=== PATIENT | male | born 1955 | race Caucasian/White ===

== ENCOUNTER 2016-10-24 18:06 | Inpatient (IN) | payer OTHER ==
[~2016-10-24] VITALS: Ht 170.2 cm; Wt 93.9 kg
--- NOTE | 2016-10-24 18:09 | ED MVC/FALL/TRAUMA COMPLAINT ---
History of Present Illness General Chief Complaint: Fall Stated Complaint: L HIP PAIN S/P FALL Source: patient, old records Exam Limitations: no limitations Vital Signs & Intake/Output Vital Signs & Intake/Output Vital Signs Date Time Temp Pulse Resp B/P B/P Pulse O2 O2 Flow FiO2 Mean Ox Delivery Rate 10/24 2328 82 152/78 10/24 2315 98.5 85 14 158/72 94 Room Air 10/24 2244 98.4 87 20 174/78 96 Room Air 10/24 2221 Room Air 10/24 1946 100.4 88 18 167/77 96 Room Air 10/24 1849 4.0 10/24 1838 97.8 99 20 193/93 100 ED Intake and Output 10/25 0000 10/24 1200 Intake Total 1000 Output Total Balance 1000 Intake, IV 1000 Patient 207 lb Weight Weight Reported by Patient Measurement Method Allergies Coded Allergies: clopidogrel (From PLAVIX) (Intermediate, HIVES 10/24/16) indomethacin (From INDOCIN) (Intermediate, HIVES 10/24/16) azilsartan (From EDARBI) (NEAR KIDNEY FAILURE 10/24/16) Triage Nurses Notes Reviewed? yes Onset: Abrupt Duration: hour(s): (8), constant Timing: recent history Severity: severe Severity Numbers: 10 Injuries/Fall Location: lower extremity Method of Injury: fall Loss of Consciousness: no loss of consciousness Modifying Factors: Worsens With: movement. Associated Symptoms: DENIES HPI: 60-year-old male with history of coronary artery disease hypertension high cholesterol with 7 stents presents to the ER brought in by ambulance after he had a mechanical fall after he tripped over a piece of plywood landing on his left hip. He now presents complaining of moderate to severe 10 out of 10 left hip pain nonradiating. He denies hitting his head is no loss of consciousness no neck or back pain no chest pain shortness of breath abdominal pain arm or other leg injury. He states the fall occurred at 9:30 this morning and has been on the floor waiting for his to come home. He is not taken anything for his symptoms. No prodromal dizziness related as prior to the fall. He is not on anticoagulation (TIANNA HUTTON,RAGHU) Reconcile Medications Amlodipine Besylate 10 MG TABLET 10 MG PO DAILY HTN (Reported) Chlorthalidone 25 MG TABLET 1 TAB PO DAILY HTN (Reported) Doxazosin Mesylate 4 MG TABLET 1 TAB PO DAILY htn (Reported) Furosemide (Lasix) 20 MG TABLET 1 TAB PO Q8 HTN (Reported) Isosorbide Mononitrate (Isosorbide Mononitrate ER) 60 MG TAB.ER.24H 60 MG PO DAILY ANGINA (Reported) Labetalol HCl 200 MG TABLET 200 MG PO BID HEART (Reported) (EV HAMPTON,SIVAKUMAR) Past History Medical History Any Pertinent Medical History? see below for history Cardiovascular: CAD, myocardial infarction Respiratory: SLEEP APNEA Endocrine: diabetes Surgical History Surgical History: non-contributory Psychosocial History What is your primary language German Family History Hx Contributory? No (RAGHU FLORES) Review of Systems Review of Systems Constitutional: Reports: see HPI. All Other Systems: Reviewed and Negative Comments Review of systems: See HPI, All other systems negative. Constitutional, no chills no fever, no malaise HEENT: No visual changes no sore throat no congestion, no ear pain Cardiovascular: No chest pain , no palpitation , Skin: no rashes, no change in skin Respiratory: No dyspnea no cough no sputum GI: No nausea no vomiting, no diarrhea, : No dysuria Muscle skeletal: joint pain, no joint swelling, no back pain, no neck pain, Neurologic: No numbness no confusion, no headache Psych: No stress no depression,. Heme/endocrine: No bruising no bleeding Immunology: No lymphadenopathy (RAGHU FLORES) Physical Exam Physical Exam General Appearance: well developed/nourished, alert, awake Comments: Well-developed well-nourished person in no acute distress HEENT: Normal EENT exam; PERRL, EOMI, no nystagmus. HEAD is atraumatic. moist mucous membranes. Neck: Supple, no lymphadenopathy, normal range of motion without pain or tenderness Back: Nontender, no CVA tenderness. Full range of motion Cardiovascular: Regular rate and rhythms no murmurs rubs or gallops, normal JVP Respiratory: Chest nontender.There were no bony deformities, no asymmetry. No respiratory distress. Patient speaking in full complete sentences. Breath sounds clear to auscultation bilaterally: NO W/R/R Abdomen: Soft, nontender nondistended, no appreciable organomegaly. Normal bowel sounds. No rebound/guarding, No appreciable enlargement of the abdominal aorta, No ascites. Upper Extremity: No edema, full range of motion of extremities, normal and equal pulses bilaterally, 5 out of 5 strength noted to bilateral upper extremities Hip/Pelvis: Left leg is shortened and externally rotated significant tenderness to palpation with attempted movement, right hip is atraumatic Knee: Atraumatic/stable. No joint swelling, no effusion. No laxity. Negative alem/anterior drawer test. No pain with ROM Leg: L LEG LROM SECONDARY TO PAINRIGHT LEG Atraumatic. Nontender. No edema, 5 out of 5 strength in the lower extremity, normal dorsiflexion of great toe bilaterally, gross sensation is intact, Ankle/Foot: Atraumatic/stable. Skin intact. FROM. No swelling, no effusion. No laxity on exam Pulses: Normal/equal DP/PT pulses bilaterally. Brisk cap refill Neuro: Alert oriented x3, motor sensory normal, There were no obvious focal neurologic abnormalities. Skin: No appreciable rash on exposed skin, skin is warm and dry. Psych: Mood and affect is normal, memory and judgment is normal. Core Measures ACS in differential dx? No Severe Sepsis Present: No Septic Shock Present: No (TIANNA HUTTON,RAGHU) Progress Differential Diagnosis: abd injury, C/T/L spine injury, ext injury, ICH, pelvis injury, pnemothorax, spinal cord injury Plan of Care: Orders Procedure Date/time Status Nothing by Mouth 10/25 B Active CBC WITHOUT DIFFERENTIAL 10/25 0600 Active BASIC ELECTROLYTES PLUS BUN&CR 10/25 0600 Active Vital Signs 10/24 2216 Complete Teach/Educate 10/24 2216 Active Pain Treatment and Response 10/24 2216 Active Nutritional Intake, Monitor 10/24 2216 Active Isolation 10/24 2216 Active Intake & Output 10/24 2216 Complete Patient Care Conference 10/24 2216 Active Activity/Ambulation 10/24 2216 Active Pathway - chart 10/25 2139 Active House Staff 10/25 2139 Active Patient Data 10/25 2139 Active Code Status 10/25 2139 Active Intake & Output 10/24 1957 Complete Patient Data 10/25 1955 Active Admit to inpatient 10/24 194 Active Vital Signs 10/24 194 Active Code Status 10/24 194 Complete Add-on Test (ER Only) 10/24 1831 Active EKG 10/24 182 Active Saline Lock 10/24 182 Active CREATINE PHOSPHOKINASE 10/24 1826 Complete B-TYPE NATRIURETIC PEP (BNP) 10/24 1826 Complete PARTIAL THROMBOPLASTIN TIME 10/24 1808 Complete PROTHROMBIN TIME 10/24 1808 Complete COMPREHENSIVE METABOLIC PANEL 10/24 1808 Complete CBC WITHOUT DIFFERENTIAL 10/24 1808 Complete TYPE & SCREEN (NOT X-MATCH) 10/24 1808 Complete Lab Add-on Test 10/24 UNK Active Weight 10/24 UNK Active VTE Mechanical Prophylaxis 10/24 UNK Active Telemetry/Lens Mold Setter 10/24 UNK Active Intake & Output 10/24 UNK Active FingerStick- Glucose 10/24 UNK Active PHYSICIAN CONSULT 10/24 UNK Active Current Medications Sig/Lynda Start time Last Medication Dose Stop Time Status Admin Amlodipine Besylate 10 MG DAILY 10/25 1000 AC (Norvasc) Doxazosin Mesylate 4 MG 1000 10/25 1000 AC (Cardura) Isosorbide 60 MG DAILY 10/25 1000 AC Mononitrate (Imdur) Insulin Aspart 0 TIDAC 10/25 0800 AC (NovoLOG) Acetaminophen 1,000 MG Q6 10/24 2359 AC 10/24 (Ofirmev) 2329 Furosemide 20 MG Q8 10/24 2200 AC 10/24 (Lasix) 2328 Heparin Sodium 5,000 UNIT Q8 10/24 2200 AC 10/24 (Porcine) 2329 Labetalol HCl 200 MG BID 10/24 2199 AC 10/24 (Trandate-Normodyne 2328 200MG Tab) Prazosin HCl 2 MG BID 10/24 2200 CAN (Minipress 2 Mg.) Acetaminophen 650 MG Q6P PRN 10/24 2145 AC (Tylenol) Morphine Sulfate 2 MG Q4P PRN 10/24 2145 AC 10/24 (Morphine) 2248 Sodium Chloride 1,000 ML ONCE ONE 10/24 2145 CAN (Normal Saline 0.9%) 10/25 0544 Chlorthalidone 25 MG DAILY 10/24 2133 AC (Hygroton) Laboratory Tests 10/24/161826: Anion Gap 16, Estimated GFR 36 L, BUN/Creatinine Ratio 20.0, Glucose 125 H, Calcium 9.2, Total Bilirubin 1.0, AST 25, ALT 36, Alkaline Phosphatase 72, Creatine Kinase 244 H, Zfk-T-Nhomzkykrxd Pept 285 H, Total Protein 7.0, Albumin 4.2, Globulin 2.8, Albumin/Globulin Ratio 1.5, PT 11.7, INR 1.12, APTT 30, CBC w Diff NO MAN DIFF REQ, RBC 3.83 L, MCV 85.3, MCH 29.8, RDW 12.8, MPV 7.5, Gran % 89.8 H, Lymphocytes % 4.1 L, Monocytes % 5.9, Eosinophils % 0, Basophils % 0.2, Absolute Granulocytes 10.4 H, Absolute Lymphocytes 0.5 L, Absolute Monocytes 0.7 H, Absolute Eosinophils 0, Absolute Basophils 0, PUBS MCHC 35.0 X-rays ordered patient medicated with morphine to Tylenol IV Zofran 4 IV x-rays ordered CASE d/w dr davila 1939 on repeat evaluation pain is improved he is declining anything else when offered and discussed with him his x-ray results. case d/w dr berman will admit d/w ortho caes d/w dr andre will have surgical pa eval/consult PATIENT: LINDSEY PENNINGTON Laura PRESENT AGE: 60 PATIENT ACCOUNT NO: [id number] : 54 LOCATION: [facility] ORDERING PHYSICIAN: RAGHU HUTTON SERVICE DATE: 10/24/16 EXAM TYPE: RAD - XRY-HIP 2-3 VIEWS, LEFT EXAMINATION: XR HIP, LEFT CLINICAL INFORMATION: Fall with pain. COMPARISON: None TECHNIQUE: Two views of the left hip. Frontal view of the pelvis. FINDINGS: There is a left femoral neck fracture with varus angulation at the fracture site. The left femoral head articulates appropriately with its acetabulum. Mild degenerative changes with joint space narrowing and small osteophytes. The right femoral head is well-seated within its acetabulum. The pelvic rim is intact. The sacroiliac joints and pubic symphysis are intact. Phleboliths overlie the pelvis. IMPRESSION: Left femoral neck fracture with varus angulation at the fracture site. DICTATED BY: BASHIR PASCUAL MD DATE/TIME DICTATED:10/24/161951 TRIAGE CLINICIAN:MELVIN DATE/TIME TRANSCRIBED:10/24/161951 CONFIDENTIAL, DO NOT COPY WITHOUT APPROPRIATE AUTHORIZATION. <Electronically signed in Other Vendor System> SIGNED BY: BASHIR PASCUAL MD 10/24 PATIENT: LINDSEY PENNINGTON PRESENT AGE: 60 PATIENT ACCOUNT NO: [id number] : 54 LOCATION: [facility] ORDERING PHYSICIAN: RAGHU HUTTON SERVICE DATE: 10/24/16 EXAM TYPE: RAD - XRY-CHEST XRAY, ONE VIEW ONLY EXAMINATION:\H\ \N\XR CHEST CLINICAL INFORMATION: Fall COMPARISON: 01/20/2008 TECHNIQUE: Frontal view of the chest was obtained. FINDINGS: The lungs are well expanded. There is no focal consolidation, edema, or effusion. No pneumothorax. The cardiomediastinal silhouette is within normal limits. No acute osseous abnormality. IMPRESSION: No acute pulmonary findings. No displaced fractures are seen. DICTATED BY: BASHIR PASCUAL MD DATE/TIME DICTATED:10/24/161952 TRIAGE CLINICIAN:MELVIN DATE/TIME TRANSCRIBED:10/24/161952 CONFIDENTIAL, DO NOT COPY WITHOUT APPROPRIATE AUTHORIZATION. <Electronically signed in Other Vendor System> SIGNED BY: ANKUR HAMPTON,BASHIR 10/24 (RAGHU FLORES) Diagnostic Imaging: Viewed by Me: Radiology Read. Discussed w/RAD: Radiology Read. Initial ED EKG: nsr at 90, no acute st seg changes, normal axis Prior EKG: unchanged (06/2015) (RAGHU FLORES) Departure Departure Time of Disposition: 1940 Disposition: STILL A PATIENT Condition: Stable Clinical Impression Primary Impression: Femoral neck fracture Referrals: LIBRADO CERDA MD Departure Forms: Customer Survey General Discharge Information Admission Note Spoke With: REBEL BERMAN MD Documentation of Exam: Documentation of any treatments & extenuating circumstances including Concerns Regarding Discharge (functional status, medication knowledge or non-compliance, living conditions, etc.) that warrant an admission rather than observation: pt will require ORIF, ortho, cardiology and medicine clearance, iv pain control, premature discharge would be medically harmful (RAGHU FLORES) PA/MEDICAL BILLING AND CODING SPECIALIST Co-Sign Statement Statement: ED Attending supervision documentation- [x] I saw and evaluated the patient. I have also reviewed all the pertinent lab results and diagnostic results. I agree with the findings and the plan of care as documented in the PA's/MEDICAL BILLING AND CODING SPECIALIST's documentation. [x] I have reviewed the ED Record and agree with the PA's/MEDICAL BILLING AND CODING SPECIALIST's documentation. [] Additions or exceptions (if any) to the PAs/MEDICAL BILLING AND CODING SPECIALIST's note and plan are summarized below: [] (EV HAMPTON,SIVAKUMAR)
--- NOTE | 2016-10-24 18:15 | NUR ---
PT CHRISTIN TO [facility] RM 5 S/P FALL C/C L HIP PAIN. HAD BOARD BLOCKING DOOR TO PREVENT DOG FROM GETTING OUT, WHEN HE WENT TO STEP OVER THE BOARD HE TRIPPED AND FELL, LANDING ON L HIP. WAS UNABLE TO GET SELF UP. CRAWLED TO TAKE CARE OF DOG. FELL THIS AM. STATES PHONE WAS TOO FAR AWAY. DENIES HEAD STRIKE OR OTHER INJURIES. ANNI WYNN INTO EVALUATE PATIENT ON ARRIVAL TO ER.
--- NOTE | 2016-10-24 18:38 | NUR ---
IV ACCESS ESTABLISHED, #20 RFA (DIFFICULT STICK) MEDICATED WITH MORPHINE AND ZOFRAN PER ORDERS.
[2016-10-24 18:40] LABS: ABSOLUTE BASOPHIL COUNT 0 /CUMM (0.0-0.2); ABSOLUTE EOSINOPHIL COUNT 0 /CUMM (0.0-0.7); ABSOLUTE GRANULOCYTE CT 10.4 /CUMM (1.4-6.5); ABSOLUTE LYMPH COUNT 0.5 /CUMM (1.2-3.4); ABSOLUTE MONOCYTE COUNT 0.7 /CUMM (0.10-0.60); BASOPHIL % 0.2 % (0.0-2.0); EOSINOPHIL % 0 % (0-5); HEMATOCRIT 32.7 % (42-52); MEAN CORPUSCULAR HGB 29.8 PG (27.0-31.0); MEAN CORPUSCULAR VOLUME 85.3 FL (80.0-94.0); MEAN PLATELET VOLUME 7.5 FL (7.4-10.4); PLATELET COUNT 235 /CUMM (130-400); RBC DISTRIBUTION WIDTH 12.8 % (11.5-14.5); RED BLOOD CELL CT 3.83 /CUMM (4.70-6.10); WHITE BLOOD CELL COUNT 11.6 /CUMM (4.8-10.8)
[2016-10-24 18:41] LABS: GRANULOCYTE % 89.8 % (42.2-75.2)
--- NOTE | 2016-10-24 18:50 | NUR ---
MEDICATED WITH IV OFIRMEV PER ORDERS.
[2016-10-24 18:54] LABS: PT 11.7 SEC (9.4-12.5); PTT 30 SEC (25-37)
--- NOTE | 2016-10-24 18:56 | NUR ---
Informed waiting has been performed.
--- NOTE | 2016-10-24 19:12 | NUR ---
PT MEDICATED WITH NS INFUSING PER EMAR
--- NOTE | 2016-10-24 19:56 | RADIOLOGY REPORT ---
EXAMINATION: XR HIP, LEFT CLINICAL INFORMATION: Fall with pain. COMPARISON: None TECHNIQUE: Two views of the left hip. Frontal view of the pelvis. FINDINGS: There is a left femoral neck fracture with varus angulation at the fracture site. The left femoral head articulates appropriately with its acetabulum. Mild degenerative changes with joint space narrowing and small osteophytes. The right femoral head is well-seated within its acetabulum. The pelvic rim is intact. The sacroiliac joints and pubic symphysis are intact. Phleboliths overlie the pelvis. IMPRESSION: Left femoral neck fracture with varus angulation at the fracture site.
--- NOTE | 2016-10-24 19:56 | RADIOLOGY REPORT ---
EXAMINATION:\H\ \N\XR CHEST CLINICAL INFORMATION: Fall COMPARISON: 01/20/2008 TECHNIQUE: Frontal view of the chest was obtained. FINDINGS: The lungs are well expanded. There is no focal consolidation, edema, or effusion. No pneumothorax. The cardiomediastinal silhouette is within normal limits. No acute osseous abnormality. IMPRESSION: No acute pulmonary findings. No displaced fractures are seen.
[2016-10-24] MEDS ORDERED: LABETALOL HCL200 M1 PO (20:03)
[2016-10-24] MEDS ORDERED: ISOSORBIDE MONO60 M1 PO (20:03)
[2016-10-24] MEDS ORDERED: PRAZOSIN HCL2 M1 PO (20:03)
[2016-10-24] MEDS ORDERED: AMLODIPINE BESY10 M1 PO (20:04)
[2016-10-24] MEDS ORDERED: HYDRALAZINE HCL50 M1 PO (20:05)
--- NOTE | 2016-10-24 20:12 | History & Physical ---
SOURAV HAMPTON,[facility] 10/24/16 2012: General Information and HPI MD Statement: I have seen and personally examined LINDSEY PUTNAM and documented this H&P. The patient is a 60 year old M who presented with a patient stated chief complaint of mechanical fall. Source of Information: patient, old records Exam Limitations: no limitations History of Present Illness: Mr. Putnam is a 60 y/o M with PMHx of HTN, T2DM and CAD s/p 7 stent placement who presents after a mechanical fall. This morning around 9:30 AM, patient tripped over a piece of plywood and landed on his left hip. Following the fall, he experienced severe pain in his left hip. There was no head trauma or loss of consciousness. He was able to crawl on his knees for 15 feet but had to stop because it was too painful. He remained in place without having anything to eat or drink until his came home later in the evening. Patient has an extensive cardiac history with the placement of 7 stents almost every year from 2005 to 2010. Patient was seeing alterations supervisor Dr. Abdirizak Hendrix until he and now sees Dr. Sincere Carrington. Since May 2016, his blood pressure has been difficult to control and there have been a lot of changes to his antihypertensive medications by his alterations supervisor, senior publications specialist and PCP. He recently had an ECHO and stress test in June 2016. Of note, he was hospitalized for five days at [facility] (09/07/16) for hypertensive urgency and hyperkalemia, subsequently discharged and then readmitted two days later. During these hospitalizations, patient developed vitreous hemorrhage in his left eye which he attributes to the heparin that he received for DVT prophylaxis. He was discharged on an adjusted antihypertensive regimen and has been following up with his senior publications specialist Dr. Oscar Huang at [facility] who has been making adjustments to his antihypertensive regimen including increasing his dose of labetalol, changing his diuretic and starting him on prazosin. His most recent visit was approximately one week prior to current presentation when his Lasix dose was increased to TID. Since then he has lost 8 lbs and feels that his leg swelling has improved. He has also been following up with metal box maker Dr. Luis F Hayes for the vitreous hemorrhage possibly related to his retinopathy and has received Avastin injections with plans for photocoagulation 1 week after the injection. Of note, patient's renal function has been fluctuating since May 2016. He has developed worsening renal function after starting azilsartan which has been subsequently discontinued. Currently his renal function is stable per patient and he reports that his most recent creatinine was 2.3. Patient reports that he was diagnosed with atherosclerotic disease affecting the arteries of his left leg. He states that he is fairly active and walks approximately one hour per day. At present patient denies chest pain, shortness of breath or palpitations. Allergies/Medications Allergies: Coded Allergies: clopidogrel (From PLAVIX) (Intermediate, HIVES 10/24/16) indomethacin (From INDOCIN) (Intermediate, HIVES 10/24/16) azilsartan (From EDARBI) (NEAR KIDNEY FAILURE 10/24/16) Home Med list Amlodipine Besylate 10 MG TABLET 10 MG PO DAILY HTN (Reported) Chlorthalidone 25 MG TABLET 1 TAB PO DAILY HTN (Reported) Doxazosin Mesylate 4 MG TABLET 1 TAB PO DAILY htn (Reported) Furosemide (Lasix) 20 MG TABLET 1 TAB PO Q8 HTN (Reported) Isosorbide Mononitrate (Isosorbide Mononitrate ER) 60 MG TAB.ER.24H 60 MG PO DAILY ANGINA (Reported) Labetalol HCl 200 MG TABLET 200 MG PO BID HEART (Reported) Metformin HCl 500 MG TABLET 1 TAB PO BID DIABETES (Reported) Past History Travel History Traveled to [place] past 21 day No Medical History Neurological: NONE EENT: left eye vitreous hemorrhage Cardiovascular: CAD, hypertension, myocardial infarction, PVD Respiratory: obstructive sleep apnea, USES CPAP Gastrointestinal: NONE Hepatic: NONE Renal: NONE Psychiatric: NONE Endocrine: diabetes Blood Disorders: NONE Cancer(s): NONE TASSEL SNIPPER/Reproductive: NONE Other Medical Hx: Lyme disease Surgical History Surgical History: cardiac stent placement x7 Past Family/Social History Psychosocial History Where do you live? Home Who Do You Live With? spouse Primary Language: Wallisian Smoking Status: Former Smoker (Quit 30 Years Ago) ETOH Use: occasional use Illicit Drug Use: denies illicit drug use Functional Ability ADLs Independent: dressing, eating, toileting, bathing. Ambulation: independent IADLs Independent: shopping, housework, finances, food prep, telephone, transportation , medication admin. Review of Systems Review of Systems Constitutional: Reports: no symptoms. EENTM: Reports: no symptoms. Cardiovascular: Reports: peripheral edema (improving). Denies: chest pain, palpitations. Respiratory: Denies: short of breath. GI: Reports: no symptoms. Genitourinary: Reports: no symptoms. Musculoskeletal: Reports: see HPI. Skin: Reports: no symptoms. Neurological/Psychological: Reports: no symptoms. Hematologic/Endocrine: Reports: no symptoms. Immunologic/Allergic: Reports: no symptoms. All Other Systems: Reviewed and Negative Exam & Diagnostic Data Last 24 Hrs of Vital Signs/I&O Vital Signs Date Time Temp Pulse Resp B/P B/P Pulse O2 O2 Flow FiO2 Mean Ox Delivery Rate 10/24 1945 100.4 88 18 167/77 96 Room Air 10/24 184 4.0 10/24 1837 97.8 99 20 193/93 100 Physical Exam General Appearance Alert, Oriented X3, No Acute Distress HEENT Atraumatic, Mucous Membr. moist/pink, Left Eye with Subconjunctival Hemorrhage Neck Supple Cardiovascular Regular Rate, Normal S1, Normal S2 Lungs Clear to Auscultation Abdomen Soft, No Tenderness, Positive Bowel Sounds Extremities No Clubbing, No Cyanosis, 2+ Edema on Left Lower Extremity Last 24 Hrs of Labs/Wing: Laboratory Tests 10/24/161826: Anion Gap 16, Estimated GFR 36 L, BUN/Creatinine Ratio 20.0, Glucose 125 H, Calcium 9.2, Total Bilirubin 1.0, AST 25, ALT 36, Alkaline Phosphatase 72, Creatine Kinase 244 H, Idu-J-Bqoagypqgmn Pept Pending, Total Protein 7.0, Albumin 4.2, Globulin 2.8, Albumin/Globulin Ratio 1.5, PT 11.7, INR 1.12, APTT 30, CBC w Diff NO MAN DIFF REQ, RBC 3.83 L, MCV 85.3, MCH 29.8, RDW 12.8, MPV 7.5, Gran % 89.8 H, Lymphocytes % 4.1 L, Monocytes % 5.9, Eosinophils % 0, Basophils % 0.2, Absolute Granulocytes 10.4 H, Absolute Lymphocytes 0.5 L, Absolute Monocytes 0.7 H, Absolute Eosinophils 0, Absolute Basophils 0, PUBS MCHC 35.0 Diagnostic Data EKG Results Normal sinus rhythm No ST-T wave changes CXR Results No acute pulmonary findings. No displaced fractures are seen. Other Results LEFT HIP XR: Left femoral neck fracture with varus angulation at the fracture site. Assessment/Plan Assessment: 60 y/o M with PMHx of HTN, T2DM and CAD s/p 7 stent placement who presents with a displaced left femoral neck fracture following a mechanical fall. #Left femoral neck fracture: Left hip XR with femoral neck fracture with varus angulation. Per orthopedic surgery patient will need ORIF. RCRI class IV (+1 for history of ischemic heart disease, +1 for pre-operative treatment with insulin and 1+ for preoperative creatinine >2) corresponding to 11% risk of major cardiac events. * Admit to telemetry for continuous cardiac monitoring. * Cardiology consulted for preoperative cardiac risk assessment as patient is at high risk for complications. * Plan for ORIF tomorrow pending cardiac clearance. #HTN/CAD: Extensive cardiac history including placement of 7 stents. Follows with alterations supervisor Dr. Carrington. * Continue home medications including amlodipine 10 mg PO daily, chlorthalidone 25 mg PO daily, doxazosin 4 mg PO daily, Lasix 20 mg PO TID, Imdur 60 mg PO daily and labetalol 200 mg PO BID. * Repeat ECHO if recommended by alterations supervisor. #Vitreous hemorrhage of left eye: Developed during last hospitalization at [facility] in August-September 2016. Sees metal box maker Dr. Hayes. Has received Avastin injections for laser photocoagulation. * Obtain medical records from patient's metal box maker regarding vitreous hemorrhage. #Non-insulin dependent T2DM: * Accu-checks and sliding scale Novolog TIDAC. #CKD stage 3: Cr 1.9 on admission. Per patient, most recent Cr was 2.3. * Avoid nephrotoxic medications. Diet: NPO Pain: Morphine 2 mg IV Q4H PRN for severe pain (scale 7-10) Tylenol 1 g IV Q6H PRN for moderate pain (scale 4-6) Tylenol 650 mg PO Q6H PRN for mild pain (scale 1-3) DVT PPx: ALPs CODE: FULL As Ranked By This Provider Problem List: 1. Left displaced femoral neck fracture 2. CAD (coronary artery disease) 3. History of coronary artery stent placement 4. HTN (hypertension) 5. Vitreous hemorrhage, left eye 6. CKD (chronic kidney disease) stage 3, GFR 30-59 ml/min Core Measures/Miscellaneous Acute Coronary Syndrome ACS Diagnosis: No Cerebrovascular Accident CVA/TIA Diagnosis: No Congestive Heart Failure CHF Diagnosis: No Venous Thromboembolism VTE Risk Factors: Acute medical illness, Age > 40, Immobility, paresis, Obesity, Trauma major or lower ext [facility] prophylaxis d/t: No contraindications No VTE Pharm Prophylaxis d/t: Surgical contraindication (Planned ORIF) VTE Diagnosis: No VTE Type: NONE VTE Confirmed by (Test): NONE Severe Sepsis Severe Sepsis Present: No Septic Shock Septic Shock Present: No Miscellaneous Documentation Attending Case Discussed With: REBEL KING MD Primary Care Physician: RITCHIE KABA MD Patient sees these Specialists Film Developer Sincere Carrington MD Community Outreach Specialist Oscar Huang MDenvironmental field team member Luis F Hayes MD Level of Patient Care: Telemetry DOMINIQUE HI 10/24/16 2340: Resident Review Statement Resident Statement: examined this patient, discussed with fashion intern, agreed with fashion intern, discussed with family, reviewed EMR data (avail), discussed with nursing , discussed with case mgmt, reviewed images, amended to note Other Findings: Mr. Putnam is a 60 y/o M with PMHx of HTN, DIANELYS on CPAP, T2DM and CAD s/p 7 stent placement who presents after a mechanical fall. Patient has a long and fascinating medical endivor. After of his alterations supervisor he started seeing Dr. Carrington. Patient told us how his blood pressure managment has spinned out of control and had him admitted to [facility] twice, first one in September 07 for HTN emergency which awas complicated by left eye vitrous hemorrhagea, and another spell at [facility], five days later, for another HTN crisis and by that time prazosin was added to his medaication. Patient mentined that his problems with HTN started when Dr. Carrington azilsartan that caused MARY for him on CKD and forced the alterations supervisor to chaged his regimen to labetalol-plus hydralzine. After the second spell at [facility] his BP remained controlled and he continued to follow with Dr. Oscar Huang the week prior to current presentation who made some changes to his medications including increasing his Lasix dose to TID. Since then he has lost 8 lbs and feels that his leg swelling has improved. He reports that his last creatinine was 2.3 Currently he denies chest pain, shortness of breath or palpitations. Patient reports that he was diagnosed with atherosclerotic disease affecting the arteries of his left leg. On June 2016, acording to patient, he was saw Dr. Carrington for complain of CP. ECHO and stres test was done and according to patient Dr. Carrington offered another cardiac catheterization which patient refused. Another twist to his PMH is a Hx of PVD, more severe (L>R) and ?? arteial claudiction amd progressive diminishing of his exercise tolerance. According to patient, since Jun 2016-May 2016. Patient reports that he spends most of his time at home/ inaactive and may visit local grocery shops. He lives with his /quit smoking 30 years ago/complaint with his medication and diet. ROS: left Femur Fx. VS: 100.4, 88,18, 167/77, 96 %Room Air. PH/EX: Morbidly obese man; AO X3, not in acute distress; head and neck: Mucous membranes are dry, no JVD; heart: S1-S2 no murmur, lungs decreased air movements ; abdomen obese and soft no guarding or rebound, extremities: Swelling of lower extremities (left>> right, 2+ and trace edema respectively). Neurology intact sensory and motor function. Peripheral pulses 2+ in bilateral upper and lower extremities. Assessment and plan 60-year-old gentleman with multiple comorbidities and complicated past medical history was admitted for open reduction internal fixation for which she needs pre-op risk assessments for noncardiac surgery. Plan #Left femoral neck fracture: Left hip XR with femoral neck fracture with varus angulation. RCRI with class III risk corresponding to a 6.6% risk of major cardiac events. However patient is not physically active and he has a questionable recent history of chest pain, which was not fully worked up by that time. * Cardiology consulted * Plan for ORIF tomorrow pending cardiac clearance. * No need to repeat ECHO as patient recently had one in June 2016. * Obtain records from his ophtholmologist regarding safety of post-op AC. * Inform the surgical team about his hx of vitous hemmorhage. #Non-insulin dependent T2DM: * Accu-checks and sliding scale Novolin Q6 * NPO #HTN/CAD: * Continue home medications including amlodipine 10 mg PO daily, chlorthalidone 25 mg PO daily, doxazosin 4 mg PO daily, Lasix 20 mg PO daily, Imdur 60 mg PO daily and labetalol 200 mg PO BID. Diet: NPO DVT PPx: HSQ and ALPs REBEL KING 10/25/16 0116: Attending MD Review Statement Attending Statement Attending MD Statement: examined this patient, discuss w/resident/PA/AUTOMOBILE TRAVEL CLUB COUNSELOR, agreed w/resident/PA/AUTOMOBILE TRAVEL CLUB COUNSELOR, discussed with family, reviewed EMR data (avail), reviewed images, amended to note Attending Assessment/Plan: CC: Fall PMH: HTN, DM, CAD S/P MD S/P 7 stents, CKD, retinopathy S/P ?vitreous hemorrhage , PAD Patient had mechanical fall at home, stumbled on a stone, brought forward and fell on left hip. He could not get up after the fall, so he crawled to push the door to get the dog inside house but he could not go any further to call his so he laid on the floor for a few hours to came in and they called EMS to bring him to ER. Patient does not complain anything else other than left hip pain. Does not recall any chest pain, palpitations, dizziness, loss of consciousness, head trauma at the time of fall. No obvious neurological weakness Patient has extensive cardiac history with 7 stents from 2005 - 2010, almost yearly, mostly after chest pain episodes. Patient's alterations supervisor last year so he started to follow-up with Sincere Carrington MD. Since May patient mentions that there had been several changes in his antihypertensive medications done by alterations supervisor, PCP, senior publications specialist on different occasions. His Blood pressure had been not under control, was admitted to [facility] for elevated blood pressure, again there was a change in his blood pressure medications. After discharge, he followed up with senior publications specialist at [place] who increased her dose of labetalol, changed diuretic, added prazosin. According to patient he received heparin for DVT prophylaxis in hospital followed by which he had bleeding in his left eye. He followed up with metal box maker outpatient for possible vitreous hemorrhage, possibly related to his retinopathy and received Avastin and they plan to do photocoagulation 1 week after Avastin injection. Meanwhile patient had markedly fluctuation in his renal function since May, currently stabilized GFR around 55, according to patient. With all these fluctuations patients for functionality markedly decreased, he used to be on treadmill for 1 mile before May, now he feels pain and swelling in his left lower extremity Which limits his activity. Possible history of heart failure patient is not aware. Chronic bilateral lower extremity swelling. No history of stroke. Currently denies any chest pain or shortness of breath at rest or on exertion. Vitals: Temperature 97.8, RR 99, respiration 20, blood pressure 193/93 at presentation, saturating well on room air On exam: A O 3, cooperative, no acute distress, neck supple, JVD normal, no lymphadenopathy, mucosa moist, pupils equal round reactive to light, visual acute to grossly normal, no focal neurological deficit, +2 pitting edema bilateral lower extremity left more than right, skin rashes left lower extremity , peripheral pulses palpable and equal CVS: S1-S2, RRR, parasternal systolic murmur, no carotid radiation. RS: Clear to auscultate bilaterally, no crackles. Abdomen: Soft, obese, NT, ND, bowel sounds present. Subconjunctival hemorrhage on left eye 5 o'clock position. Labs: WBC 11.6, hemoglobin 11.4, neutrophils 89%, bicarbonate 18, BUN 38, creatinine 1.9, anion gap 16, glucose 125, LFT unremarkable, CK 244, proBNP 285, INR 1.12 EKG: No acute ST-T wave changes CXR: No acute pulmonary findings. No displaced fractures are seen. X-ray left hip: Left femoral neck fracture with varus angulation at the fracture site. A and P Patient has sustained left femoral neck fracture after what appears to be mechanical fall. According to surgical note patient will require open reduction and internal fixation. Given his coronary artery disease, multiple stents, probable history of heart failure, chronic kidney disease (baseline creatinine 2.3), peripheral vascular disease patient is high risk according to risk stratification. Patient does not appear to be in acute heart failure currently, I could not appreciate JVD, basilar crackles are s3. Patient does have parasternal systolic murmur, and bilateral pedal edema. Patient needs further cardiology evaluation for cardiac clearance. According to patient he underwent 2 -D echo and stress test in the month of June. In addition patient has recent ? Vitreous/preretinal hemorrhage. Patient will require postop prophylactic anticoagulation for DVT. ?Risk of further deterioration is unclear + Mechanical fall + Left femoral neck fracture + Recent ? Vitreous/preretinal hemorrhage + History of CAD, ?HF, DM, HTN, CKD, PVD - Admit to telemetry, given his extensive cardiac history and high blood pressure, patient may require IV antihypertensive and closer monitoring - Saline lock IV - Nothing by mouth after midnight - Please consult patient's cardiology for clearance. - Please obtain records and opinion regarding DVT prophylaxis from patient's metal box maker with respect to his recent hemorrhage and Avastin injection and plan of laser photocoagulation - Continue sliding scale insulin - Continue all his home medications for hypertension - Repeat CBC, BMP in a.m. - 2-D echo as suggested by alterations supervisor - DVT prophylaxis Alps only for now - Adequate pain control
--- NOTE | 2016-10-24 20:18 | Cons- Orthopedic ---
General Information and HPI Consulting Request Date of Consult: 10/24/16 Requested By: emergency department/hospitalist service Reason for Consult: hip fracture Source of Information: patient, old records, EMS Exam Limitations: no limitations History of Present Illness: Mr. Putnam is a 60-year-old male with a past medical history of hypertension, coronary artery disease with stents who sustained a mechanical fall at home after tripping. He denies dizziness chest pain shortness of breath prior to fall. He was unable to ambulate after the fall and was on the floor for several hours because he could not get the phone. He is transferred to [facility] which time x-rays were taken demonstrating an femoral neck fracture. He has no other extremity complaints at this time. Allergies/Medications Allergies: Coded Allergies: clopidogrel (From PLAVIX) ([facility], [facility] 10/24/16) indomethacin (From INDOCIN) (Intermediate, [facility] 10/24/16) azilsartan (From EDARBI) ([facility] 10/24/16) Home Med List: Amlodipine Besylate 10 MG TABLET 10 MG PO DAILY HTN (Reported) Chlorthalidone 25 MG TABLET 1 TAB PO DAILY HTN (Reported) Doxazosin Mesylate 4 MG TABLET 1 TAB PO DAILY htn (Reported) Furosemide (Lasix) 20 MG TABLET 1 TAB PO Q8 HTN (Reported) Isosorbide Mononitrate (Isosorbide Mononitrate ER) 60 MG TAB.ER.24H 60 MG PO DAILY ANGINA (Reported) Labetalol HCl 200 MG TABLET 200 MG PO BID HEART (Reported) Past History Medical History Neurological: NONE EENT: NONE Cardiovascular: CAD, hypertension, myocardial infarction, CARDIAC STENTS Respiratory: obstructive sleep apnea, USES CPAP Gastrointestinal: NONE Hepatic: NONE Renal: NONE Musculoskeletal: LYME DISEASE Psychiatric: NONE Endocrine: diabetes Blood Disorders: NONE Cancer(s): NONE 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 Respiratory: normal breath sounds Cardiovascular: regular rate/rhythm Gastrointestinal: soft, non-tender Extremities: no edema, pain and left groin with passive rotation of left hip. Neurologic/Psych: awake, alert Last 24 Hours of Labs: Laboratory Tests 10/247 Chemistry Sodium (137 - 145 mmol/L) 142 Potassium (3.5 - 5.1 mmol/L) 4.3 Chloride (98 - 107 mmol/L) 108 H Carbon Dioxide (22 - 30 mmol/L) 18 L Anion Gap (5 - 16) 16 BUN (9 - 20 mg/dL) 38 H Creatinine (0.7 - 1.2 mg/dL) 1.9 H Estimated GFR (>60 ml/min) 36 L BUN/Creatinine Ratio (7 - 25 %) 20.0 Glucose (65 - 99 mg/dL) 125 H Calcium (8.4 - 10.2 mg/dL) 9.2 Total Bilirubin (0.2 - 1.3 mg/dL) 1.0 AST (17 - 59 U/L) 25 ALT (21 - 72 U/L) 36 Alkaline Phosphatase (< 127 U/L) 72 Creatine Kinase (55 - 170 U/L) 244 H Vjf-T-Xfzttwoeits Pept (<125 pg/mL) 285 H Total Protein (6.3 - 8.2 g/dL) 7.0 Albumin (3.5 - 5.0 g/dL) 4.2 Globulin (1.9 - 4.2 gm/dL) 2.8 Albumin/Globulin Ratio (1.1 - 2.2 %) 1.5 Coagulation PT (9.4 - 12.5 SEC) 11.7 INR (0.90 - 1.17) 1.12 APTT (25 - 37 SEC) 30 Hematology CBC w Diff NO MAN DIFF REQ WBC (4.8 - 10.8 /CUMM) 11.6 H RBC (4.70 - 6.10 /CUMM) 3.83 L Hgb (14.0 - 18.0 G/DL) 11.4 L Hct (42 - 52 %) 32.7 L MCV (80.0 - 94.0 FL) 85.3 MCH (27.0 - 31.0 PG) 29.8 RDW (11.5 - 14.5 %) 12.8 Plt Count (130 - 400 /CUMM) 235 MPV (7.4 - 10.4 FL) 7.5 Gran % (42.2 - 75.2 %) 89.8 H Lymphocytes % (20.5 - 51.1 %) 4.1 L Monocytes % (1.7 - 9.3 %) 5.9 Eosinophils % (0 - 5 %) 0 Basophils % (0.0 - 2.0 %) 0.2 Absolute Granulocytes (1.4 - 6.5 /CUMM) 10.4 H Absolute Lymphocytes (1.2 - 3.4 /CUMM) 0.5 L Absolute Monocytes (0.10 - 0.60 /CUMM) 0.7 H Absolute Eosinophils (0.0 - 0.7 /CUMM) 0 Absolute Basophils (0.0 - 0.2 /CUMM) 0 PUBS MCHC (33.0 - 37.0 G/DL) 35.0 Imaging Results: SERVICE DATE: 10/24/16 EXAM TYPE: RAD - XRY-HIP 2-3 VIEWS, LEFT EXAMINATION: XR HIP, LEFT CLINICAL INFORMATION: Fall with pain. COMPARISON: None TECHNIQUE: Two views of the left hip. Frontal view of the pelvis. FINDINGS: There is a left femoral neck fracture with varus angulation at the fracture site. The left femoral head articulates appropriately with its acetabulum. Mild degenerative changes with joint space narrowing and small osteophytes. The right femoral head is well-seated within its acetabulum. The pelvic rim is intact. The sacroiliac joints and pubic symphysis are intact. Phleboliths overlie the pelvis. IMPRESSION: Left femoral neck fracture with varus angulation at the fracture site. DICTATED BY: ANKUR HAMPTON,BASHIR DATE/TIME DICTATED:10/24/161951 MISSILE FAC[employer]ITIES REPAIRER:MELVIN DATE/TIME TRANSCRIBED:10/24/161951 Assessment/Plan Assessment/Plan Mr. Putnam is a 60-year-old male with an extensive cardiac history who presents after a mechanical fall at home resulting in a hip fracture. Given his past medical history the patient will be admitted to the medical service and will require medical and cardiac clearance for pending open reduction internal fixation hip fracture probably in the a.m. Dr. Orantes will be the orthopedic attending of record who has reviewed the patient's x-rays and agrees with open reduction internal fixation and will evaluate the patient in the a.m. Consult Acknowledgment - Thank you for your consult request.
--- NOTE | 2016-10-24 21:19 | NUR ---
REPORT GIVEN TO VENU ROSS
[2016-10-24] MEDS ORDERED: DOXAZOSIN MESYLA4 M1 PO (21:20)
--- NOTE | 2016-10-24 21:20 | NUR ---
[facility] CALLED FOR TRANSPORT
[2016-10-24] MEDS ORDERED: CHLORTHALIDONE25 M1 PO (21:31)
[2016-10-24] MEDS ORDERED: LASIX20 M1 PO (21:31)
[2016-10-24 22:44] VITALS: BP 174/78
--- NOTE | 2016-10-24 23:10 | NUR ---
RECEIVED PATIENT FROM ED S/P LEFT FEMEROL HEAD FRACTURE. PT IS ALERT AND ORIENTED ON RA, SKIN INTACT, BP ELEVATED, PULSE REGULAR. PT HAD INC EPISODE OF BLADDER AND BOWEL PRIOR TO ARRIVING TO [facility]. PT WAS AT HOME AND SUSTAINED MECHANICAL FALL AND WAS UNABLE TO GET UP AND WAS ON THE FLOOR FOR MANY HOURS. PAIN 8/10 MORPHINE GIVEN WITH GOOD EFFECT. UPON CHECKING ORDERS, PATIENT NOTED TO HAVE ORDER FOR TELEMETRY. PT TRANSFERRED TO TELE WITH TELE NURSE AND MST.
[2016-10-24 23:15] VITALS: BP 158/72
[2016-10-25] VITALS (7 sets, daily range): BP systolic 170–198; BP diastolic 70–88
--- NOTE | 2016-10-25 01:18 | Admission Certification ---
Admission Certification Certification Statement - As attending physician, I certify that at the time of - admission, based on clinical presentation, severity of - symptoms, need for further diagnostic testing and - therapeutic interventions, and risk of adverse outcomes - without in-hospital treatment, in my clinical assessment, - this patient requires an acute hospital stay for a minimum - of two nights or longer. I have also considered psychsocial - factors such as support system, advanced age, financial - issues, cognitive issues, and failed out-patient treatments, - past re-admission history, safety of patient, and lack of - compliance as applicable. Specific rationale supporting this admission is: Fall, left femoral neck fracture
--- NOTE | 2016-10-25 07:15 | PN- Housestaff ---
TASH PATTERSON 10/25/16 0714: Subjective Follow-up For: 1. Left femoral neck fracture with varus angulation 2. Hypertensive urgency with history of hypertension Complaints: no complaints Tele-Events Since Last Visit: NSR, first-degree AV block, WA interval 0.26. HR 73 through 84 BPM. Subjective: Interval history: This morning Mr. Putnam states that he feels comfortable with occasional pain in this left hip with movement. He complains of some mild nonradiating sharp chest discomfort localized on the left chest. He denies any headaches, dizziness, worsening vision, shortness of breath, palpitations, nausea, abdominal, fevers or chills. Review of Systems Constitutional: Reports: see HPI. EENTM: Reports: see HPI. Cardiovascular: Reports: see HPI. Respiratory: Reports: no symptoms. Gastrointestinal: Reports: no symptoms. Musculoskeletal: Reports: see HPI. Objective Last 24 Hrs of Vital Signs/I&O Vital Signs Date Time Temp Pulse Resp B/P B/P Pulse O2 O2 Flow FiO2 Mean Ox Delivery Rate 10/25 0925 100.5 10/25 0922 82 186/80 10/25 0915 186/80 10/25 0830 100.5 82 16 186/82 91 Room Air 10/25 0829 100.5 78 16 186/82 91 Room Air 10/24 2328 82 152/78 10/24 2315 98.5 85 14 158/72 94 Room Air 10/24 2244 98.4 87 20 174/78 96 Room Air 10/24 2221 Room Air 10/24 1946 100.4 88 18 167/77 96 Room Air 10/24 1849 4.0 10/24 1838 97.8 99 20 193/93 100 Intake & Output 10/25 1600 10/25 0800 10/25 0000 Intake Total 200 1000 Output Total 900 Balance -700 1000 Intake, IV 0 1000 Intake, Oral 200 Output, Urine 900 Patient 207 lb Weight Weight Reported by Patient Measurement Method Physical Exam General Appearance: Alert, Cooperative, No Acute Distress Skin: Superficial reddish bruising on the anterior aspect of the left white HEENT: EOMI, Mucous Membr. moist/pink Cardiovascular: Regular Rate, Normal S1, Normal S2 Lungs: Clear to Auscultation, Normal Air Movement Abdomen: Normal Bowel Sounds, Soft, No Tenderness Extremities: No Edema, 2+ pitting edema left lower extremity, 1+ pitting edema right lower extremity Vascular: Pulses Symmetrical Current Medications: Current Medications Sig/Lynda Start time Last Medication Dose Route Stop Time Status Admin Acetaminophen 650 MG Q6P PRN 10/25 0930 AC 10/25 PO 0925 Acetaminophen 1,000 MG Q6P PRN 10/25 0529 AC 10/25 IV 0530 Acetaminophen 1,000 MG Q6 10/24 2359 DC 10/24 IV 2329 Acetaminophen 650 MG Q6P PRN 10/24 2145 DC PO Acetaminophen 0 .STK-MED ONE 10/24 184 DC IV Acetaminophen 1,000 MG ONCE ONE 10/24 1830 DC 10/24 N/A 1 UNIT IV 10/25 1843 184 Amlodipine Besylate 10 MG DAILY 10/25 1000 AC 10/25 PO 0924 Chlorthalidone 25 MG DAILY 10/24 2133 AC 10/25 PO 0922 Docusate Sodium 100 MG BID PRN 10/25 0800 AC PO Doxazosin Mesylate 4 MG 1000 10/25 1000 AC PO Furosemide 20 MG Q8 10/24 2200 AC 10/25 PO 0642 Heparin Sodium 5,000 UNIT Q8 10/24 2200 DC 10/24 (Porcine) SC 2329 Insulin Aspart 0 TIDAC 10/25 0800 CAN SC Insulin Human Regular 0 Q6 10/25 0113 AC 10/25 SC 0145 Isosorbide 60 MG DAILY 10/25 1000 AC 10/25 Mononitrate PO 0922 Labetalol HCl 300 MG BID 10/25 2200 AC PO Labetalol HCl 100 MG ONE TIME ONE 10/25 0945 DC PO 10/25 0946 Labetalol HCl 200 MG BID 10/24 2200 DC 10/25 PO 0925 Morphine Sulfate 2 MG Q4P PRN 10/24 2145 AC 10/25 IV 0929 Morphine Sulfate 0 .STK-MED ONE 10/24 184 DC .ROUTE Morphine Sulfate 2 MG ONCE ONE 10/24 1830 DC 10/24 IV 10/24 183 183 Ondansetron HCl 0 .STK-MED ONE 10/24 184 DC .ROUTE Ondansetron HCl 4 MG ONCE ONE 10/24 1830 DC 10/24 IV 10/24 183 183 Prazosin HCl 2 MG BID 10/24 2200 CAN PO Senna/Docusate Sodium 1 TAB BID PRN 10/25 0800 AC PO Sodium Chloride 1,000 ML ONCE ONE 10/24 2145 CAN IV 10/25 0544 Sodium Chloride 1,000 ML BOLUS ONE 10/245 DC 10/24 IV 10/24 Last 24 Hrs of Lab/Wing Results Last 24 Hrs of Labs/Mics: Laboratory Tests 10/25/16 0705: Anion Gap 12, Estimated GFR 39 L, BUN/Creatinine Ratio 18.9, Creatine Kinase 244 H, CBC w Diff NO MAN DIFF REQ, RBC 3.54 L, MCV 85.7, MCH 29.8, RDW 12.7, MPV 7.9, Gran % 75.9 H, Lymphocytes % 10.7 L, Monocytes % 8.4, Eosinophils % 4.4, Basophils % 0.6, Absolute Granulocytes 6.7 H, Absolute Lymphocytes 0.9 L, Absolute Monocytes 0.7 H, Absolute Eosinophils 0.4, Absolute Basophils 0.1, PUBS MCHC 34.7 10/24/16 1827: Anion Gap 16, Estimated GFR 36 L, BUN/Creatinine Ratio 20.0, Glucose 125 H, Calcium 9.2, Total Bilirubin 1.0, AST 25, ALT 36, Alkaline Phosphatase 72, Creatine Kinase 244 H, Hkq-P-Qlqwwgkwyqr Pept 285 H, Total Protein 7.0, Albumin 4.2, Globulin 2.8, Albumin/Globulin Ratio 1.5, PT 11.7, INR 1.12, APTT 30, CBC w Diff NO MAN DIFF REQ, RBC 3.83 L, MCV 85.3, MCH 29.8, RDW 12.8, MPV 7.5, Gran % 89.8 H, Lymphocytes % 4.1 L, Monocytes % 5.9, Eosinophils % 0, Basophils % 0.2, Absolute Granulocytes 10.4 H, Absolute Lymphocytes 0.5 L, Absolute Monocytes 0.7 H, Absolute Eosinophils 0, Absolute Basophils 0, PUBS MCHC 35.0 Assessment/Plan Assessment: Mr. Putnam is a 60-year-old gentleman with a PMH of HTN, type II DM, PVD, CAD s/p stent placement X7 () previously followed by his rod piler Dr. Abdirizak Hendrix until he and now sees Dr. Sincere Carrington. Most recently resistant hypertension with medication adjustments since May 2016, a recent admission to [facility] on 09/07/2016 for hypertensive urgency, complicated with vitreous hemorrhage in the left eye that was attributed to heparin for DVT prophylaxis. Patient's director peoplesoft Dr. Oscar Huang at [facility] has been involved with his antihypertensive medication adjustment: Increased labetalol dose, started on prazosin, increased Lasix to TID. His renal function had worsened secondary to starting azilsartan which has since been discontinued. For the vitreous hemorrhage she has been followed by his pastry chef Dr. Luis F Hayes which was managed with Avastin injection with follow-up plans for photocoagulation. He presented to [facility] on 10/24/2016 after suffering a mechanical fall tripping over a piece of plywood landing on his left hip, denied any preceding headache, dizziness, blurred vision or associated LOC. Due to significant pain he was unable to ambulate independently for an extended period of time. VS on admission: BP 103/93, HR 99, RR 20, SPO2 100% on RA, T 97.8. MAXIMUM TEMPERATURE 100.4 PE on admission: AAO, in no acute distress. Most mucous membranes. RRR, normal S1/S2. Lungs CTA BL. Abdomen soft nontender with positive bowel sounds. Pain and left groin with passive rotation of left hip. 2+ pitting edema of LLE. Pertinent labs: WBC 11.6, H&H 11.4/32.7, glucose 235, sodium 142, potassium 4.3, chloride 103, bicarbonate 18, BUN/CR 30/1.9, Creatinine kinase: 244 EKG: NSR, HR 90. First-degree AV block. Consider anterior septal infarct. WA interval 240, QTC 451 CXR: No acute pulmonary findings. No displaced fractures are seen. HIp xray: left femoral neck fracture with varus angulation at the fracture site. The left femoral head articulates appropriately with its acetabulum. Mild degenerative changes with joint space narrowing and small osteophytes. The right femoral head is well-seated within its acetabulum. The pelvic rim is intact. The sacroiliac joints and pubic symphysis are intact. Phleboliths overlie the pelvis. Problem list: 1. Left femoral neck fracture with varus angulation 2. Hypertensive urgency with history of hypertension 3. CAD with history of stent placement 4. Elevated creatinine kinase 5. CKD 6. Diabetes 7. Vitreous hemorrhage Plan: 1. Left femoral neck fracture with varus angulation * Plan for risk stratification prior to surgical intervention * Pain management with morphine 2 mg * Bowel regimen with senna and Colace when necessary for titration of 1-2 BMs per 24 hours 2. Hypertensive urgency with history of hypertension * BP on admission 193/93. Likely secondary to pain from left hip * Continue with his home regimen with labetalol 200 mg BID, amlodipine 10 mg, chlorthalidone 25 mg, doxazosin 4 mg * The patient reports that he has not started taking some of his recently prescribed medications by his director peoplesoft. Will contact [facility] to obtain latest discharge medication list and we consult accordingly 3. CAD with history of stent placement * Currently on beta shannan and isosorbide mononitrate as needed * Azilsartan recently discontinued in the setting of worsening renal function 4. Elevated creatinine kinase * 244 on admission. Remains stable this morning. * Whille he is NPO, we'll maintain him on D5NS at 75 mL/hr 5. CKD * Will monitor daily renal function in the setting of recent immobility and mild elevation in CK * Adjust Lasix according to fluid balance and urine output 6. Diabetes * NPO Insulin sliding scale at this time * Consistent carbohydrate 3 diet after surgery 7. Vitreous hemorrhage * Records obtained indicate that he is vitreous hemorrhage may have been attributed to heparin. We'll contact the patient's pastry chef to obtain further recommendations with regards to DVT prophylaxis moving forward 8. Diet: Consistent carbohydrate 3 9. DVT prophylaxis: ALps 10. CODE STATUS: Full code Problem List: 1. Left displaced femoral neck fracture 2. Hypertensive urgency 3. Elevated troponin 4. CAD (coronary artery disease) 5. Elevated creatine kinase 6. CKD (chronic kidney disease) stage 3, GFR 30-59 ml/min 7. Diabetes Pain Ratin Pain Location: Left chest Pain Goal: Pain 4 or less Pain Plan: Pain pathway Tomorrow's Labs & Rationales: CBC: Leukocytosis DEP: Monitor renal function DVT/Prophylaxis: pharmacological DIANA JONAS MD 10/25/16 1314: Attending MD Review Statement Attending Statement Attending MD Statement: examined this patient, discuss w/resident/PA/INDUSTRIAL TECHNICIAN, agreed w/resident/PA/INDUSTRIAL TECHNICIAN, reviewed EMR data (avail), discussed with nursing, discussed with case mgmt, reviewed images, amended to note Attending Assessment/Plan: Patient seen and examined, was not very comfortable. He was combining of some pain in the left lower extremity. Vital Signs Date Time Temp Pulse Resp B/P B/P Pulse O2 O2 Flow FiO2 Mean Ox Delivery Rate 10/25 1146 72 160/70 10/25 1144 98.6 10/25 0925 100.5 10/25 0922 82 186/80 10/25 0915 186/80 10/25 0830 100.5 82 16 186/82 91 Room Air 10/25 0829 100.5 78 16 186/82 91 Room Air 10/24 2328 82 152/78 10/24 2315 98.5 85 14 158/72 94 Room Air 10/24 2244 98.4 87 20 174/78 96 Room Air 10/24 2221 Room Air 10/24 1946 100.4 88 18 167/77 96 Room Air 10/24 1849 4.0 10/24 1838 97.8 99 20 193/93 100 on exam; aox3, nad. cv; s1,s2, rrr resp; clear abd; soft, nt, bs+ ext: + edema lle which is outward rotated. Laboratory Tests 10/25 10/24 0705 1827 Chemistry Sodium (137 - 145 mmol/L) 139 142 Potassium (3.5 - 5.1 mmol/L) 4.1 4.3 Chloride (98 - 107 mmol/L) 107 108 H Carbon Dioxide (22 - 30 mmol/L) 19 L 18 L Anion Gap (5 - 16) 12 16 BUN (9 - 20 mg/dL) 34 H 38 H Creatinine (0.7 - 1.2 mg/dL) 1.8 H 1.9 H Estimated GFR (>60 ml/min) 39 L 36 L BUN/Creatinine Ratio (7 - 25 %) 18.9 20.0 Glucose (65 - 99 mg/dL) 125 H Calcium (8.4 - 10.2 mg/dL) 9.2 Total Bilirubin (0.2 - 1.3 mg/dL) 1.0 AST (17 - 59 U/L) 25 ALT (21 - 72 U/L) 36 Alkaline Phosphatase (< 127 U/L) 72 Creatine Kinase (55 - 170 U/L) 244 H 244 H Troponin I (<0.11 ng/ml) 0.20 *H Enk-H-Zuamodbvrca Pept (<125 pg/mL) 285 H Total Protein (6.3 - 8.2 g/dL) 7.0 Albumin (3.5 - 5.0 g/dL) 4.2 Globulin (1.9 - 4.2 gm/dL) 2.8 Albumin/Globulin Ratio (1.1 - 2.2 %) 1.5 Coagulation PT (9.4 - 12.5 SEC) 11.7 INR (0.90 - 1.17) 1.12 APTT (25 - 37 SEC) 30 Hematology CBC w Diff NO MAN DIFF REQ NO MAN DIFF REQ WBC (4.8 - 10.8 /CUMM) 8.9 11.6 H RBC (4.70 - 6.10 /CUMM) 3.54 L 3.83 L Hgb (14.0 - 18.0 G/DL) 10.5 L 11.4 L Hct (42 - 52 %) 30.3 L 32.7 L MCV (80.0 - 94.0 FL) 85.7 85.3 MCH (27.0 - 31.0 PG) 29.8 29.8 RDW (11.5 - 14.5 %) 12.7 12.8 Plt Count (130 - 400 /CUMM) 197 235 MPV (7.4 - 10.4 FL) 7.9 7.5 Gran % (42.2 - 75.2 %) 75.9 H 89.8 H Lymphocytes % (20.5 - 51.1 %) 10.7 L 4.1 L Monocytes % (1.7 - 9.3 %) 8.4 5.9 Eosinophils % (0 - 5 %) 4.4 0 Basophils % (0.0 - 2.0 %) 0.6 0.2 Absolute Granulocytes (1.4 - 6.5 /CUMM) 6.7 H 10.4 H Absolute Lymphocytes (1.2 - 3.4 /CUMM) 0.9 L 0.5 L Absolute Monocytes (0.10 - 0.60 /CUMM) 0.7 H 0.7 H Absolute Eosinophils (0.0 - 0.7 /CUMM) 0.4 0 Absolute Basophils (0.0 - 0.2 /CUMM) 0.1 0 PUBS MCHC (33.0 - 37.0 G/DL) 34.7 35.0 A/P; 60 M with pmh sig for HTN, type II DM, PVD, CAD s/p stent placement X7, labile hypertension with med adjustments being made by patient's rod piler and director peoplesoft, recent vitreous hemorrhage under the care of pastry chef received Avsatin injections, admitted with a mechanical fall and sustained a left femoral neck fracture with varus angulation at the fracture site. Patient has been seen by cardiology and no further testing recommended to proceed with surgery. He will be continued on labetalol and other antihypertensives. He needs a better pain control. Please contact his director peoplesoft get some records as well as his pastry chef to notify about future decannulation after the surgery and to see if it is okay with them are not. DVT px: Patient was on heparin subcutaneous but has been discontinued for now. Patient will need to be on antivibration postoperatively and this will need to be clarified with pastry chef
--- NOTE | 2016-10-25 08:04 | Discharge Summary ---
Visit Information Visit Dates Admission Date: 10/24/16 Discharge Date: 10/31/2016 Hospital Course Course Attending Physician: DIANA JONAS MD Primary Care Physician: RITCHIE KABA MD Consulting Request: 1 Consulting Specialty: Cardiology Consulting Physician: Dr. Méndez Reason for Consult: Preop clearance Consulting Request: 2 Consulting Specialty: Nephrology Consulting Physician: Dr. Castro Reason for Consult: Worsening renal function Hospital Course: Mr. Putnam is a 60-year-old gentleman who presented to [facility] after suffering a mechanical fall, fracturing his left femoral neck. He has an extensive PMH of HTN, type II DM, PVD, CAD s/p stent placement X7 ( ) previously followed by his intelligent systems engineer Dr. Abdirizak Hendrix until he and now sees Dr. Sincere Carrington. Most recently resistant hypertension with medication adjustments since May 2016, a recent admission to [facility] on 09/07/2016 for hypertensive urgency, complicated with vitreous hemorrhage in the left eye with ?? association to heparin for DVT prophylaxis. Patient's rubber tire curer Dr. Uri Huang at [facility] has been involved with his antihypertensive medication adjustment: Increased labetalol dose, started on prazosin, increased Lasix to TID. His renal function had worsened secondary to starting azilsartan which has since been discontinued. For the vitreous hemorrhage she has been followed by his drug inspector Dr. Renee Hayes who administered with Avastin injection with follow-up plans for photocoagulation. He presented to [facility] on 10/24/2016 after suffering a mechanical fall tripping over a piece of plywood landing on his left hip. He denied any preceding headache dizziness, blurred vision or associated loss of consciousness. Due to significant pain and is unable to ambulate independently for an extended period of time. VS on admission: BP 103/93, HR 99, RR 20, SPO2 100% on RA, T 97.8. MAXIMUM TEMPERATURE 100.4 PE on admission: AAO, in no acute distress. Most mucous membranes. RRR, normal S1/S2. Lungs CTA BL. Abdomen soft nontender with positive bowel sounds. Pain and left groin with passive rotation of left hip. 2+ pitting edema of LLE. Pertinent labs: WBC 11.6, H&H 11.4/32.7, glucose 235, sodium 142, potassium 4.3, chloride 103, bicarbonate 18, BUN/CR 30/1.9, Creatinine kinase: 244 EKG: NSR, HR 90. First-degree AV block. Consider anterior septal infarct. VA interval 240, QTC 451 CXR: No acute pulmonary findings. No displaced fractures are seen. HIp xray: left femoral neck fracture with varus angulation at the fracture site. The left femoral head articulates appropriately with its acetabulum. Mild degenerative changes with joint space narrowing and small osteophytes. The right femoral head is well-seated within its acetabulum. The pelvic rim is intact. The sacroiliac joints and pubic symphysis are intact. Phleboliths overlie the pelvis. He was admitted to telemetry for management of the following problems: Problem list: 1. Left femoral neck fracture with varus angulation s/p total L hip arthroplasty (10/27/2016) 2. R knee effusion s/p aspiration of 30cc straw colored fluid 3. Acute on chronic renal failure 4. Acute blood loss Anemia 5. Hyponatremia 6. Hypertensive urgency 7. Elevated troponins 8. CAD with history of stent placement 9. Elevated creatinine kinase 10. Diabetes 11. History of Vitreous hemorrhage Hospital course: 1. Left femoral neck fracture with varus angulation s/p total L hip arthroplasty * Initial plan was for surgery on 10/25/2016 was deferred due to an episode of nonspecific chest discomfort with associated transient elevation in troponins ( peak 0.22), not consistent with ACS rather likely type II. With his extensive cardiac history risk stratification was obtained from cardiology. Given his described capacity to perform >6 METS prior to the fall and the need for the upcoming surgical proceedure, pre-operative cardiac testing was not indicated before hand. However, his overall perioperative risk for ischemic events was assessed as elevated based on his history. His overall risk for perioperative CHF was not significantly elevated * The patient underwent a total left hip arthroplasty on 10/27/2016. Postprocedure recommendations weightbearing as tolerated, continue with PT, anticoagulation with Coumadin for 6 weeks postop with INR target between 2 and 3. Follow-up with orthopedic surgeon in 10-14 days postoperative * Pain management while in the hospital maintained with IV morphine and transitioned to Percocet * Noticeable swelling on the lateral aspect of the left hip with no evidence of bruising was likely due to underlying hematoma that was stable. No follow-up imaging was required as H&H remained stable after transfusing 1 PRBC * His Vitamin D level was low prior to discharge so he was discharged on high dose vitamin d replacement therapy. 2. R knee effusion s/p aspiration of 30cc straw colored fluid * Initially on admission the patient did not have any complaints of right knee pain, did not recall any trauma to his knee during the fall. On postop day#1 he complained of pain with ambulation, was noted to have an effusion, tender to palpation, loss of 25 terminal knee extension/knee flexion to about 80 * Aspiration of the joint was performed to rule out septic arthritis versus gouty arthropathy. Total of 30 mL straw-colored cloudy nonpurulent synovial fluid was obtained * Fluid was negative for uric acid crystals or infection. Fluid analysis 10,670 WBCs, 2850 RBCs. Gram stain and culture negative. His pain was managed with periodic ice packs and pain medications. 3. Acute on chronic renal failure * On admission BUN/CR 38/1.9. On postop day 2 the patient was noted to have worsening renal function BUN/CR 61/3.0. * He did have a Chand catheter in place with good urine output since surgery. We obtained a renal ultrasound that showed bilateral normal-sized kidneys without any evidence of urinary obstruction. Per nephrology recommendations restart the patient on sodium bicarbonate 1300 mg PO BID along with continued hydration NS. His PO bicarbonate supplementation was continued on discharge. And his IV fluids were stopped. 4. Iron deficiency anemia with Acute blood loss * H&H and admission 11.4/32.7. On postop day#2 drop in H&H was noted down to 8.0/27.4. We transfused 1 unit PRBC with target hematocrit greater than 24 based on his extensive cardiac history. His hemoglobin was stable the rest of the hospital course. * Fe 13L, TIBC 247L, 5 saturation 5L, ferritin 230.0. We started the patient on ferrous sulfate mentation TID 5. Hyponatremia * Sodium on admission 142 that gradually trended down over the first 5 days to 127. We started the patient on gentle hydration normal saline that stabilized the hyponatremia. Normal saline was stopped on discharge. 6. Hypertensive urgency * During the first 3 days the patient was noted to have persistent elevation in blood pressure that was likely secondary to hip pain * Inpatient regimen: Continued with labetalol 300 mg BID, hydralazine 100 mg TID , amlodipine 10 mg, prazosin 2 mg BID * Furosemide and Chlorthalidone have been discontinued in the setting of acute on chronic renal insufficiency. He was instructed to follow up with his rubber tire curer before restarting these diruretics. * 7. CAD with history of stent placement * With his extensive cardiac history with stenting 7, he was previously maintained on effient and aspirin. Effient transiently prior to surgery and restarted on post op day#1. However his aspirin was stopped due to bleeding risk , as he will be on coumadin for DVT prophylaxis for the next 6 weeks. The plan is to restart his aspirin after completing his course of coumadin. 8. Elevated creatinine kinase * The setting of immobility for few hours prior to admission we checked CK levels which peaked at 373. Continued improvement in the setting of hydration with normal saline 9. Diabetes * Throughout hospital course maintained the patient on a low-dose sliding scale. His metformin was stopped due to his poor renal fucntion. 10. History of Vitreous hemorrhage * Stable throughout the hospital course Allergies: Coded Allergies: clopidogrel (From PLAVIX) (Intermediate, HIVES 10/24/16) indomethacin (From INDOCIN) (Intermediate, HIVES 10/24/16) azilsartan (From EDARBI) (NEAR KIDNEY FAILURE 10/24/16) Significant Procedures: Left femoral neck fracture with varus angulation s/p ORIF (10/27/2016) Disposition Summary Disposition Principal Diagnosis: Left femoral neck fracture with varus angulation s/p total L hip arthroplasty () Additional Diagnosis: R knee effusion s/p aspiration of 30cc straw colored fluid Acute on chronic renal failure Acute blood loss Anemia Hyponatremia Hypertensive urgency Elevated troponins Discharge Disposition: SNF Discharge Instructions General Discharge Information Code Status: Full Code Patient's Diet: Heart healthy diet Patient's Activity: Weightbearing as tolerated Follow-Up Instructions/Appts: Please follow-up with her PCP within 1-2 weeks after discharge. Please follow-up with your orthopedic doctor within 1 week after discharge. Please follow-up with your intelligent systems engineer within 1 week after discharge. Please take all medications as directed Medications at Discharge Discharge Medications: Stop taking the following medications: Labetalol HCl (Labetalol HCl) 200 MG TABLET ORAL TWICE DAILY Qty = 120 Doxazosin Mesylate (Doxazosin Mesylate) 4 MG TABLET ORAL DAILY Qty = 30 Furosemide (Lasix) 20 MG TABLET ORAL EVERY 8 HOURS Qty = 90 Chlorthalidone (Chlorthalidone) 25 MG TABLET ORAL DAILY Qty = 30 Metformin HCl (Metformin HCl) 500 MG TABLET ORAL TWICE DAILY Qty = 90 Aspirin (Lo-Dose Aspirin EC) 81 MG TABLET.DR ORAL DAILY Prazosin HCl (Prazosin HCl) 2 MG CAPSULE ORAL TWICE DAILY Qty = 60 Hydralazine HCl (Hydralazine HCl) 50 MG TABLET ORAL DAILY Continue taking these medications: Isosorbide Mononitrate (Isosorbide Mononitrate ER) 60 MG TAB.ER.24H 60 Milligram ORAL DAILY Qty = 30 Amlodipine Besylate (Amlodipine Besylate) 10 MG TABLET 10 Milligram ORAL DAILY Qty = 30 Start taking the following new medications: Ferrous Sulfate (Ferrous Sulfate) 325 MG (65 MG IRON) TABLET.DR 1 Tablet ORAL THREE TIMES DAILY Qty = 90 No Refills Prasugrel HCl (Effient) 5 MG TABLET 2 Tablet ORAL DAILY Qty = 60 No Refills Hydralazine HCl (Hydralazine HCl) 50 MG TABLET 2 Tablet ORAL THREE TIMES DAILY Qty = 60 No Refills Prazosin HCl (Prazosin HCl) 2 MG CAPSULE 1 Capsule ORAL TWICE DAILY Qty = 60 No Refills Labetalol HCl (Labetalol HCl) 100 MG TABLET 3 Tablet ORAL TWICE DAILY Qty = 90 No Refills Oxycodone HCl/Acetaminophen (Percocet 5-325 MG Tablet) 5 MG-325 MG TABLET 2 Tablet ORAL EVERY SIX HOURS NEEDED as needed for PAIN SCALE 4-6 ( MODERATE) Qty = 60 No Refills Bisacodyl (Bisacodyl) 5 MG TABLET.DR 1 Tablet ORAL DAILY as needed for CONSTIPATION Qty = 30 No Refills Docusate Sodium (Docusate Sodium) 100 MG CAPSULE 1 Capsule ORAL TWICE DAILY as needed for CONSTIPATION Qty = 60 No Refills Sennosides/Docusate Sodium (Senna Plus Tablet) 8.6 MG-50 MG TABLET 1 Tablet ORAL TWICE DAILY as needed for CONSTIPATION Qty = 60 No Refills Warfarin Sodium (Coumadin) 5 MG TABLET 1 Tablet ORAL COUMADIN AT 5PM Qty = 30 No Refills Sodium Bicarbonate (Sodium Bicarbonate) 325 MG TABLET 1 Tablet ORAL TWICE DAILY Qty = 60 No Refills Ergocalciferol (Vitamin D2) (Vitamin D2) 50,000 UNIT CAPSULE 1 Capsule ORAL Once a Week Qty = 8 No Refills Insulin Aspart (Novolog) 100 UNIT/ML VIAL 0 Inject into fatty tissue 3 TIMES DAILY BEFORE MEALS Qty = 1 No Refills Instructions: BEFORE MEALS Blood Insulin Sugar Units <80 0 80-150 0 151-200 2 201-250 4 251-300 6 301-350 8 351-400 10 >400 Call Doctor Copies To: REGGIE HAMPTON,FUNMI Hoskins; CAYETANO HAMPTON,SINCERE; GRANT HAMPTON,ABDIRIZAK Marques; JERRELL HAMPTON ,URI MARTÍNEZ; OSMIN HAMPTON,JAKE Galan; NITIN HAMPTON,TIFFANIE; SENDY HAMPTON,RITCHIE ANorberto; RANJITH HAMPTON,RENEE
[2016-10-25 08:33] LABS: ABSOLUTE BASOPHIL COUNT 0.1 /CUMM (0.0-0.2); ABSOLUTE EOSINOPHIL COUNT 0.4 /CUMM (0.0-0.7); ABSOLUTE GRANULOCYTE CT 6.7 /CUMM (1.4-6.5); ABSOLUTE LYMPH COUNT 0.9 /CUMM (1.2-3.4); ABSOLUTE MONOCYTE COUNT 0.7 /CUMM (0.10-0.60); BASOPHIL % 0.6 % (0.0-2.0); EOSINOPHIL % 4.4 % (0-5); GRANULOCYTE % 75.9 % (42.2-75.2); HEMATOCRIT 30.3 % (42-52); MEAN CORPUSCULAR HGB 29.8 PG (27.0-31.0); MEAN CORPUSCULAR HGB CONC 34.7 G/DL (33.0-37.0); MEAN CORPUSCULAR VOLUME 85.7 FL (80.0-94.0); MEAN PLATELET VOLUME 7.9 FL (7.4-10.4); PLATELET COUNT 197 /CUMM (130-400); RBC DISTRIBUTION WIDTH 12.7 % (11.5-14.5); RED BLOOD CELL CT 3.54 /CUMM (4.70-6.10); WHITE BLOOD CELL COUNT 8.9 /CUMM (4.8-10.8)
--- NOTE | 2016-10-25 09:28 | Cons- Cardiology ---
General Information and HPI Consulting Request Date of Consult: 10/25/16 Requested By: REBEL KING MD Reason for Consult: Preop cardiac clearance Source of Information: patient, old records Exam Limitations: no limitations History of Present Illness: Mr. Putnam is a 60 y/o M with PMHx of HTN, T2DM and CAD s/p 7 stent placement who presents after a mechanical fall. This morning around 9:30 AM, patient tripped over a piece of plywood and landed on his left hip. Following the fall, he experienced severe pain in his left hip. There was no head trauma or loss of consciousness. He was able to crawl on his knees for 15 feet but had to stop because it was too painful. He remained in place without having anything to eat or drink until his came home later in the evening. Patient has an extensive cardiac history with the placement of 7 stents almost every year from 2005 to 2010. Patient was seeing therapy technician Dr. Abdirizak Hendrix until he and now sees Dr. Sincere Carrington. Since May 2016, his blood pressure has been difficult to control and there have been a lot of changes to his antihypertensive medications by his therapy technician, supervisor picking crew and PCP. He recently had an ECHO and stress test in June 2016. Of note, he was hospitalized for five days at [facility] (09/07/16) for hypertensive urgency and hyperkalemia, subsequently discharged and then readmitted two days later. During these hospitalizations, patient developed vitreous hemorrhage in his left eye which he attributes to the heparin that he received for DVT prophylaxis. He was discharged on an adjusted antihypertensive regimen and has been following up with his supervisor picking crew Dr. Oscar Huang at [facility] who has been making adjustments to his antihypertensive regimen including increasing his dose of labetalol, changing his diuretic and starting him on prazosin. His most recent visit was approximately one week prior to current presentation when his Lasix dose was increased to TID. Since then he has lost 8 lbs and feels that his leg swelling has improved. He has also been following up with [id number] [address] Dr. Luis F Hayes for the vitreous hemorrhage possibly related to his retinopathy and has received Avastin injections with plans for photocoagulation 1 week after the injection. Of note, patient's renal function has been fluctuating since May 2016. He has developed worsening renal function after starting azilsartan which has been subsequently discontinued. Currently his renal function is stable per patient and he reports that his most recent creatinine was 2.3. Patient reports that he was diagnosed with atherosclerotic disease affecting the arteries of his left leg. He states that he is fairly active and walks approximately one hour per day. At present patient denies chest pain, shortness of breath or palpitations. The above information was obtained by the admitting medical personnel. Patient confirms his history and denies any chest pains or unusual shortness of breath and the 2 weeks prior to this mechanical fall. His activity level otherwise his greater than 4 Mets. He had had a nuclear stress test in June 2016 that revealed a small area of infarct with ischemia in the distal inferior wall and inferior apex but no evidence of scintigraphic ischemia. Left ventricle ejection fraction was 60%. Chest this morning patient had some localized to the fingertip low precordial chest discomfort lasted for a few seconds. Electrocardiogram revealed no acute ischemic abnormalities. He has been complaining of some reflux symptoms in the last few weeks as well. Allergies/Medications Allergies: Coded Allergies: clopidogrel (From PLAVIX) (Intermediate, HIVES 10/24/16) indomethacin (From INDOCIN) (Intermediate, HIVES 10/24/16) azilsartan (From EDARBI) (NEAR KIDNEY FAILURE 10/24/16) Home Med List: Amlodipine Besylate 10 MG TABLET 10 MG PO DAILY HTN (Reported) Chlorthalidone 25 MG TABLET 1 TAB PO DAILY HTN (Reported) Doxazosin Mesylate 4 MG TABLET 1 TAB PO DAILY htn (Reported) Furosemide (Lasix) 20 MG TABLET 1 TAB PO Q8 HTN (Reported) Isosorbide Mononitrate (Isosorbide Mononitrate ER) 60 MG TAB.ER.24H 60 MG PO DAILY ANGINA (Reported) Labetalol HCl 200 MG TABLET 200 MG PO BID HEART (Reported) Current Medications: Current Medications Sig/Lynda Start time Last Medication Dose Route Stop Time Status Admin Acetaminophen 1,000 MG Q6P PRN 10/25 05 AC 10/25 IV 0530 Acetaminophen 1,000 MG Q6 10/24 2359 DC 10/24 IV 2329 Acetaminophen 650 MG Q6P PRN 10/24 2145 AC PO Acetaminophen 0 .STK-MED ONE 10/24 1844 DC IV Acetaminophen 1,000 MG ONCE ONE 10/24 1830 DC 10/24 N/A 1 UNIT IV 10/24 1844 1849 Amlodipine Besylate 10 MG DAILY 10/25 1000 AC PO Chlorthalidone 25 MG DAILY 10/24 2133 AC PO Docusate Sodium 100 MG BID PRN 10/25 0800 AC PO Doxazosin Mesylate 4 MG 1000 10/25 1000 AC PO Furosemide 20 MG Q8 10/24 2200 AC 10/25 PO 0642 Heparin Sodium 5,000 UNIT Q8 10/24 2200 DC 10/24 (Porcine) SC 2329 Insulin Aspart 0 TIDAC 10/25 0800 CAN SC Insulin Human Regular 0 Q6 10/25 0113 AC 10/25 SC 0145 Isosorbide 60 MG DAILY 10/25 1000 AC Mononitrate PO Labetalol HCl 200 MG BID 10/24 2200 AC 10/24 PO 2328 Morphine Sulfate 2 MG Q4P PRN 10/24 2145 AC 10/24 IV 2248 Morphine Sulfate 0 .STK-MED ONE 10/24 184 DC .ROUTE Morphine Sulfate 2 MG ONCE ONE 10/24 1830 DC 10/24 IV 10/24 183 1838 Ondansetron HCl 0 .STK-MED ONE 10/24 184 DC .ROUTE Ondansetron HCl 4 MG ONCE ONE 10/24 1830 DC 10/24 IV 10/24 183 1838 Prazosin HCl 2 MG BID 10/24 2200 CAN PO Senna/Docusate Sodium 1 TAB BID PRN 10/25 0800 AC PO Sodium Chloride 1,000 ML ONCE ONE 10/24 2145 CAN IV 10/25 0544 Sodium Chloride 1,000 ML BOLUS ONE 10/24 191 DC 10/24 IV 10/24 Review of Systems Review of Systems Constitutional: Denies: no symptoms. EENTM: Reports: see HPI, blurred vision. Cardiovascular: Reports: no symptoms. Respiratory: Denies: no symptoms. GI: Denies: no symptoms. Genitourinary: Denies: no symptoms. Musculoskeletal: Reports: no symptoms. Skin: Denies: no symptoms. Neurological/Psychological: Denies: no symptoms. Hematologic/Endocrine: Denies: no symptoms. Immunologic/Allergic: Denies: no symptoms. Past History Travel History Traveled to [place] past 21 day No Medical History Neurological: NONE EENT: left eye vitreous hemorrhage Cardiovascular: CAD, hypertension, myocardial infarction, PVD Respiratory: obstructive sleep apnea, USES CPAP Gastrointestinal: NONE Hepatic: NONE Renal: NONE Psychiatric: NONE Endocrine: diabetes Blood Disorders: NONE Cancer(s): NONE CERTIFIED PEER SPECIALIST/Reproductive: NONE Other Medical Hx: Lyme disease Surgical History Surgical History: cardiac stent placement x7 Psychosocial History Where Do You Live? Home Who Do You Live With? spouse Primary Language: [place] Smoking Status: Former Smoker (Quit 30 Years Ago) ETOH Use: occasional use Illicit Drug Use: denies illicit drug use Functional Ability ADLs Independent: dressing, eating, toileting, bathing. Ambulation: independent IADLs Independent: shopping, housework, finances, food prep, telephone, transportation , medication admin. ECHO Results (as available) EF% 60 Report: Normal left ventricular systolic function ejection fraction of 60%. Mild concentric left radical hypertrophy. Mildly dilated ascending aorta 4.0 cm. Exam & Diagnostic Data Vital Signs and I&O Vital Signs Date Time Temp Pulse Resp B/P B/P Pulse O2 O2 Flow FiO2 Mean Ox Delivery Rate 10/25 0830 100.5 82 16 186/82 91 Room Air 10/25 0829 100.5 78 16 186/82 91 Room Air 10/24 2328 82 152/78 10/24 2315 98.5 85 14 158/72 94 Room Air 10/24 2244 98.4 87 20 174/78 96 Room Air 10/24 2221 Room Air 10/24 1946 100.4 88 18 167/77 96 Room Air 10/24 1849 4.0 10/24 1838 97.8 99 20 193/93 100 Intake & Output 10/25 1600 10/25 0800 10/25 0000 10/24 1600 10/24 0800 10/24 0000 Intake Total 200 1000 Output Total 900 Balance -700 1000 Intake, IV 0 1000 Intake, Oral 200 Output, Urine 900 Patient 207 lb Weight Weight Reported by Patient Measurement Method Physical Exam: On general exam patient appeared comfortable laying in bed. Head normocephalic atraumatic Eyes sclera anicteric conjunctiva showed no pallor extraocular muscles were normal Neck no jugular venous distention no thyroid masses no palpable nodes Chest lungs were clear bilaterally Heart regular rhythm with a 1/6 systolic murmur Abdomen soft no organomegaly nontender Extremities bilateral edema but left greater than right. No clubbing or cyanosis. Neurological no gross motor or sensory deficits Labs/Wing Results: Laboratory Tests 10/25 10/24 0705 1827 Chemistry Sodium (137 - 145 mmol/L) 139 142 Potassium (3.5 - 5.1 mmol/L) 4.1 4.3 Chloride (98 - 107 mmol/L) 107 108 H Carbon Dioxide (22 - 30 mmol/L) 19 L 18 L Anion Gap (5 - 16) 12 16 BUN (9 - 20 mg/dL) 34 H 38 H Creatinine (0.7 - 1.2 mg/dL) 1.8 H 1.9 H Estimated GFR (>60 ml/min) 39 L 36 L BUN/Creatinine Ratio (7 - 25 %) 18.9 20.0 Glucose (65 - 99 mg/dL) 125 H Calcium (8.4 - 10.2 mg/dL) 9.2 Total Bilirubin (0.2 - 1.3 mg/dL) 1.0 AST (17 - 59 U/L) 25 ALT (21 - 72 U/L) 36 Alkaline Phosphatase (< 127 U/L) 72 Creatine Kinase (55 - 170 U/L) 244 H 244 H Koy-X-Bwstfznycgh Pept (<125 pg/mL) 285 H Total Protein (6.3 - 8.2 g/dL) 7.0 Albumin (3.5 - 5.0 g/dL) 4.2 Globulin (1.9 - 4.2 gm/dL) 2.8 Albumin/Globulin Ratio (1.1 - 2.2 %) 1.5 Coagulation PT (9.4 - 12.5 SEC) 11.7 INR (0.90 - 1.17) 1.12 APTT (25 - 37 SEC) 30 Hematology CBC w Diff Pending NO MAN DIFF REQ WBC (4.8 - 10.8 /CUMM) Pending 11.6 H RBC (4.70 - 6.10 /CUMM) Pending 3.83 L Hgb (14.0 - 18.0 G/DL) Pending 11.4 L Hct (42 - 52 %) Pending 32.7 L MCV (80.0 - 94.0 FL) Pending 85.3 MCH (27.0 - 31.0 PG) Pending 29.8 RDW (11.5 - 14.5 %) Pending 12.8 Plt Count (130 - 400 /CUMM) Pending 235 MPV (7.4 - 10.4 FL) Pending 7.5 Gran % (42.2 - 75.2 %) 89.8 H Lymphocytes % (20.5 - 51.1 %) 4.1 L Monocytes % (1.7 - 9.3 %) 5.9 Eosinophils % (0 - 5 %) 0 Basophils % (0.0 - 2.0 %) 0.2 Absolute Granulocytes (1.4 - 6.5 /CUMM) 10.4 H Absolute Lymphocytes (1.2 - 3.4 /CUMM) 0.5 L Absolute Monocytes (0.10 - 0.60 /CUMM) 0.7 H Absolute Eosinophils (0.0 - 0.7 /CUMM) 0 Absolute Basophils (0.0 - 0.2 /CUMM) 0 PUBS MCHC (33.0 - 37.0 G/DL) Pending 35.0 Diagnostic Data EKG Results Sinus rhythm minor T changes small inferior Q waves. CXR Results IMPRESSION: No acute pulmonary findings. No displaced fractures are seen. Assessment/Plan Assessment/Plan In summary this 60-year-old gentleman has been admitted with the following problems #1 Fracture of the left hip from mechanical fall. #2. Long history of coronary artery disease. Multiple stents in the past. Latest stress test in June 2016 was negative for ischemia but positive for a small posterobasal infarct. He has been managed with dual antiplatelet agents. #3. Hypertension somewhat resistant. He is being managed by a supervisor picking crew in [place]. #4. Diabetes mellitus #5. Chronic renal insufficiency #6. Dyslipidemia #7. Gout #8. Statin intolerance #9. Peripheral vascular disease. Abnormal CLIFTON but patient reports no symptoms from his past note. Since his echocardiogram and nuclear stress test was relatively recent in June 2016, and his electrocardiogram has been unchanged and he has not had any evidence of congestive heart failure I believe we can forego a repeat echocardiogram. I would however contact his supervisor picking crew in [place] to see exactly what medications were intended. Also he is on dual antiplatelet agents and if warfarin is initiated after surgery aspirin should be interrupted for the duration of warfarin. 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 From a cardiac standpoint , he poses slightly higher than average risk for surgery based on his prior cardiac history and his mildly uncontrolled hypertension. However noting the somewhat urgent nature of the need for surgery I believe we may proceed with left hip repair. I would increase his labetalol to 300 mg twice a day for better control of hypertension. His renal records are being obtained an ophthalmology is being consulted regarding anticoagulation and antihypertensive medications. Thank you for allowing us the opportunity of participating in his care. Consult Acknowledgment - Thank you for your consult request.
--- NOTE | 2016-10-25 11:34 | ULTRASOUND REPORT ---
EXAMINATION: US TRIPLEX OF LOWER EXTREMITIES, BILATERAL CLINICAL INFORMATION: Left leg swelling greater than 4 weeks. COMPARISON: None TECHNIQUE: Color-flow triplex imaging with spectral analysis and compression Doppler were performed on the lower extremities. FINDINGS: Respiratory variation, normal compression and augmented flow are noted throughout the lower extremities. The visualized common femoral vein, superficial femoral vein, profunda femoral vein, popliteal vein and midcalf peroneal and posterior tibial venous segments show no evidence of deep venous thrombosis. There is no Miller's cyst. There is edema in the left lower extremity. IMPRESSION: Normal triplex scan without evidence of deep venous thrombosis involving the lower extremities.
[2016-10-25] MEDS ORDERED: METFORMIN HCL500 M3 PO (11:51)
--- NOTE | 2016-10-25 12:00 | NUR ---
OR SCRUB DONE.
--- NOTE | 2016-10-25 14:31 | NUR ---
SPOKE WITH RESIDENT DR PATTERSON #[id number] OF PATIENT REPORTING 5/10 MIDCHEST PAIN, WHICH HASN'T CHANGED SINCE THIS MORNING. TROPONIN FROM THIS MORNING, 0.2. PER RESIDENT WILL ORDER TROPONIN AND EKG NOW AND WILL ADD ON TROPONIN TO EARLIER THIS MORNING. PER RESIDENT SPOKE WITH DR SPAULDING AND WILL PUT SURGERY ON HOLD FOR NOW. DIET ORDER PLACED AND RESIDENT WILL SPEAK WITH PATIENT.
--- NOTE | 2016-10-25 15:34 | Event Note ---
Event Note Event Note: Situation: * Elevated troponins Brief: * Patient mentioned that he did have nonradiating localized chest discomfort earlier this morning * Repeat EKG did not show any ST-T changes * Initial troponin on admission 0.04 * Repeat troponin: 0.20 * Third troponin: 0.22 A/R: * Updated Dr. Ménedz on current results * Recommendations at this time are to cancel surgery until better assessment of his elevation in troponins * We'll continue to trend troponins * Will confirm with patient's template worker if there is any contraindication for heparin therapy
--- NOTE | 2016-10-25 19:05 | RADIOLOGY REPORT ---
EXAMINATION: XR PORTABLE CHEST CLINICAL INFORMATION: Pneumonia COMPARISON: Chest 10/24/2016 TECHNIQUE: Portable frontal view of the chest was obtained. FINDINGS: No significant abnormality is noted involving the heart, lungs, mediastinum, bony thorax or soft tissues. IMPRESSION: Unremarkable examination.
--- NOTE | 2016-10-26 07:46 | PN- Orthopedic ---
Subjective Subjective: Patient without complaints, has pain in the left hip with motion. His pain control with pain medication Objective Vital Signs and I&Os Vital Signs Date Time Temp Pulse Resp B/P B/P Pulse O2 O2 Flow FiO2 Mean Ox Delivery Rate 10/25 2350 98.8 80 18 178/70 92 Room Air 10/25 2135 89 198/88 10/25 2132 89 198/88 10/25 2131 89 198/88 10/25 2128 89 198/88 10/25 1906 89 192/72 10/25 1713 99.1 84 18 192/72 93 Room Air 3.0L 10/25 1459 Room Air 10/25 1431 98.1 76 18 170/72 94 Room Air 10/25 1146 72 160/70 10/25 1144 98.6 10/25 0925 100.5 10/25 0922 82 186/80 10/25 0915 186/80 10/25 0830 100.5 82 16 186/82 91 Room Air 10/25 0829 100.5 78 16 186/82 91 Room Air Intake & Output 10/26 0800 10/26 0000 10/25 1600 10/25 0800 10/25 0000 10/24 1600 Intake Total 830 643 995 1574 Output Total 600 400 600 900 Balance -600 430 -375 -700 1000 Intake, IV 150 225 0 1000 Intake, Oral 680 200 Output, Urine 600 400 600 900 Patient 207 lb Weight Weight Reported by Patient Measurement Method Physical Exam: Well-developed well-nourished no apparent distress. HEENT: Atraumatic, Respiratory: No respiratory distress Extremities: No edema, no calf pain , left hip, mildly shortened and rotated, pain with motion. Neuro: Alert and oriented x3 Psych: Mood affect normal, normal memory normal judgment. Skin: Warm and dry, no rash on exposed skin Assessment/Plan Assessment/Plan Left hip femoral neck fracture Requires operative management, currently the plan per Dr. SOLORIO is to perform a total hip arthroplasty on the left hip tomorrow, 10/27/2016 pending medical and cardiology clearance. Heart healthy diet today, nothing by mouth after midnight Discussed with patient who understands and agrees with plan Core Measures/Miscellaneous Venous Thromboembolism VTE Risk Factors: Age > 40 VTE Contraindications: No Contraindications VTE Diagnosis: No VTE Type: NONE VTE Confirmed by (Test): NONE Beta Timothy Is Beta Timothy a Home Med? No Antibiotics Is Patient on Antibiotics? No
[2016-10-26 07:51] LABS: ABSOLUTE BASOPHIL COUNT 0.1 /CUMM (0.0-0.2); ABSOLUTE EOSINOPHIL COUNT 0.5 /CUMM (0.0-0.7); ABSOLUTE GRANULOCYTE CT 8.4 /CUMM (1.4-6.5); BASOPHIL % 0.7 % (0.0-2.0); EOSINOPHIL % 4.4 % (0-5); GRANULOCYTE % 76.7 % (42.2-75.2); HEMATOCRIT 31.5 % (42-52); MEAN CORPUSCULAR HGB 29.7 PG (27.0-31.0); MEAN CORPUSCULAR VOLUME 87.2 FL (80.0-94.0); PLATELET COUNT 193 /CUMM (130-400); RBC DISTRIBUTION WIDTH 12.6 % (11.5-14.5); RED BLOOD CELL CT 3.61 /CUMM (4.70-6.10); WHITE BLOOD CELL COUNT 10.9 /CUMM (4.8-10.8)
--- NOTE | 2016-10-26 07:59 | PN- Housestaff ---
TASH PATTERSON 10/26/16 0759: Subjective Follow-up For: 1. Left femoral neck fracture with varus angulation 2. Hypertensive urgency with history of hypertension 3. Anemia Complaints: no complaints Tele-Events Since Last Visit: Normal sinus rhythm, first-degree. HR 75 through 84 bpm Subjective: Interval history: Overnight were no acute events. The patient was supposed to surgery yesterday but in the setting of elevated troponins this was deferred. He reports interval improvement in the chest discomfort. He denies any headache, dizziness and worsening shortness of breath, palpitations, nausea, abdominal pain or fevers at this time. Review of Systems Constitutional: Reports: see HPI. EENTM: Reports: no symptoms. Cardiovascular: Reports: see HPI. Respiratory: Reports: no symptoms. Gastrointestinal: Reports: no symptoms. Musculoskeletal: Reports: see HPI. Objective Last 24 Hrs of Vital Signs/I&O Vital Signs Date Time Temp Pulse Resp B/P B/P Pulse O2 O2 Flow FiO2 Mean Ox Delivery Rate 10/26 0832 84 196/70 10/26 0832 99.6 86 16 207/84 94 Room Air 10/25 2350 98.8 80 18 178/70 92 Room Air 10/25 2135 89 198/88 10/25 2132 89 198/88 10/25 2131 89 198/88 10/25 2128 89 198/88 10/25 1906 89 192/72 10/25 1713 99.1 84 18 192/72 93 Room Air 3.0L 10/25 1459 Room Air 10/25 1431 98.1 76 18 170/72 94 Room Air 10/25 1146 72 160/70 10/25 1144 98.6 10/25 0925 100.5 10/25 0922 82 186/80 10/25 0915 186/80 Intake & Output 10/26 1600 10/26 0800 10/26 0000 Intake Total 830 Output Total 600 400 Balance -600 430 Intake, IV 150 Intake, Oral 680 Output, Urine 600 400 Physical Exam General Appearance: Alert, Cooperative, No Acute Distress Skin: Stable superficial excoriations on the anterior aspect of the left white HEENT: Mucous Membr. moist/pink Cardiovascular: Regular Rate, Normal S1, Normal S2 Lungs: Clear to Auscultation, Normal Air Movement Abdomen: Normal Bowel Sounds, Soft, No Tenderness Extremities: Normal Pulses, 2+ pitting edema BL LE, LLE> RLE Vascular: Pulses Symmetrical Current Medications: Current Medications Sig/Lynda Start time Last Medication Dose Route Stop Time Status Admin Acetaminophen 650 MG Q6 10/25 1200 AC 10/26 PO 0600 Acetaminophen 650 MG Q6P PRN 10/25 0930 DC 10/25 PO 0925 Acetaminophen 1,000 MG Q6P PRN 10/25 0529 AC 10/25 IV 0530 Acetaminophen 650 MG Q6P PRN 10/24 2145 DC PO Amlodipine Besylate 10 MG DAILY 10/25 1000 AC 10/25 PO 0924 Chlorthalidone 25 MG DAILY 10/24 2133 AC 10/26 PO 0833 Dextrose/Sodium 1,000 ML ONCE ONE 10/25 1030 DC 10/25 Chloride IV 10/25 2349 1146 Docusate Sodium 100 MG BID PRN 10/25 0800 AC PO Doxazosin Mesylate 4 MG 1000 10/25 1000 DC PO Furosemide 20 MG Q8 10/24 2200 AC 10/26 PO 0600 Hydralazine HCl 100 MG TID 10/25 1830 AC 10/26 PO 0832 Insulin Aspart 0 TIDAC 10/25 1700 r SC 10/27 0000 Insulin Human Regular 0 Q6 10/27 0600 UNVr SC Insulin Human Regular 0 Q6 10/25 0113 DC 10/25 SC 1156 Isosorbide 60 MG DAILY 10/25 1000 AC 10/26 Mononitrate PO 0832 Labetalol HCl 300 MG BID 10/25 2200 AC 10/26 PO 0834 Labetalol HCl 100 MG ONE TIME ONE 10/25 0945 DC 10/25 PO 10/25 0946 1146 Labetalol HCl 200 MG BID 10/24 2200 DC 10/25 PO 0925 Morphine Sulfate 2 MG Q4P PRN 10/25 1415 AC 10/25 IV 1947 Morphine Sulfate 4 MG Q4P PRN 10/25 1045 DC IV Morphine Sulfate 2 MG Q4P PRN 10/24 2145 DC 10/25 IV 0929 Patient Medication 1 ED .STK-MED ONE 10/25 1428 DC Teaching ED 10/25 1429 Prasugrel 10 MG DAILY 10/25 1815 AC 10/25 PO 1943 Prazosin HCl 2 MG BID 10/25 1815 AC 10/26 PO 0833 Senna/Docusate Sodium 1 TAB BID PRN 10/25 0800 AC PO Last 24 Hrs of Lab/Wing Results Last 24 Hrs of Labs/Mics: Laboratory Tests 10/26/16 0610: Anion Gap 14, Estimated GFR 34 L, BUN/Creatinine Ratio 18.0, PT 12.5, INR 1.19 H, CBC w Diff NO MAN DIFF REQ, RBC 3.61 L, MCV 87.2, MCH 29.7, RDW 12.6, MPV 8.0, Gran % 76.7 H, Lymphocytes % 9.4 L, Monocytes % 8.8, Eosinophils % 4.4, Basophils % 0.7, Absolute Granulocytes 8.4 H, Absolute Lymphocytes 1.0 L, Absolute Monocytes 1.0 H, Absolute Eosinophils 0.5, Absolute Basophils 0.1, PUBS MCHC 34.0 10/25/162009: Troponin I 0.16 *H 10/25/161829: Urine Color STRAW, Urine Clarity CLEAR, Urine pH 6.0, Ur Specific [place] 1.020, Urine Protein >=300 H, Urine Ketones NEG, Urine Nitrite NEG, Urine Bilirubin NEG, Urine Urobilinogen 0.2, Ur Leukocyte Esterase NEG, Ur Microscopic SEDIMENT EXAMINED, Urine RBC 1-3, Urine Bacteria FEW H, Urine Hemoglobin SMALL H, Urine Glucose NEG 10/25/16 1420: Troponin I 0.22 *H Microbiology 10/25 1829 URINE ROUT: Urine Culture - RES Assessment/Plan Assessment: Mr. Putnam is a 60-year-old gentleman with a PMH of HTN, type II DM, PVD, CAD s/p stent placement X7 () previously followed by his filter bed placer Dr. Abdirizak Hendrix until he and now sees Dr. Sincere Carrington. Most recently resistant hypertension with medication adjustments since May 2016, a recent admission to [facility] on 09/07/2016 for hypertensive urgency, complicated with vitreous hemorrhage in the left eye that was attributed to heparin for DVT prophylaxis. Patient's station baggage porter Dr. Oscar Huang at [facility] has been involved with his antihypertensive medication adjustment: Increased labetalol dose, started on prazosin, increased Lasix to TID. His renal function had worsened secondary to starting azilsartan which has since been discontinued. For the vitreous hemorrhage she has been followed by his residency coordinator Dr. Luis F Hayes which was managed with Avastin injection with follow-up plans for photocoagulation. He presented to [facility] on 10/24/2016 after suffering a mechanical fall tripping over a piece of plywood landing on his left hip, denied any preceding headache, dizziness, blurred vision or associated LOC. Due to significant pain he was unable to ambulate independently for an extended period of time. Problem list: 1. Left femoral neck fracture with varus angulation 2. Hypertensive urgency with history of hypertension 3. Elevated troponins 4. CAD with history of stent placement 5. Elevated creatinine kinase 6. CKD 7. Diabetes 8. Vitreous hemorrhage 9. Anemia Plan: 1. Left femoral neck fracture with varus angulation * Plan surgery on 10/25/2016 was deferred due to elevation in troponins and chest discomfort which has since resolved. The patient did receive his dose of antiplatelet therapy with prasugrel yesterday. Per recommendations from surgical team (Dr. Pozo), ideally hold antiplatelet therapy today, tomorrow and restart on Saturday after surgery * At this time the plan is for surgical intervention on Saturday morning * Pain management with morphine 2 mg * Bowel regimen with senna and Colace when necessary for titration of 1-2 BMs per 24 hours * Doppler ultrasound lower extremities on 10/25/2016: Negative for DVT 2. Hypertensive urgency with history of hypertension * Blood pressure continues to remain elevated, however we have been able to confirm all his prescribed medications from [facility] records * Continue with labetalol 300 mg BID, hydralazine 100 mg TID, amlodipine 10 mg, chlorthalidone 25 mg, prazosin 2 mg BID 3. CAD with history of stent placement * Currently on beta shannan and isosorbide mononitrate * Serial troponins: 0.20, 0.22, 0.16 * Follow-up risk stratification cardiology today 4. Elevated creatinine kinase * Stable at this time 5. CKD * Will monitor daily renal function in the setting of recent immobility and mild elevation in CK * Adjust Lasix according to fluid balance and urine output 6. Diabetes * Consistent carbohydrate 3 diet, insulin sliding scale 7. Vitreous hemorrhage * Records obtained indicate that he is vitreous hemorrhage may have been attributed to heparin. We'll contact the patient's residency coordinator to obtain further recommendations with regards to DVT prophylaxis moving forward 8. Anemia * Drop in H&H since admission: 10.7/31.5 down from 11.4/32.7 * Fe 13L, TIBC 247L, 5 saturation 5L, ferritin 230.0 * We'll start patient on ferrous sulfate supplementation TID 9. Diet: Consistent carbohydrate 3 10. DVT prophylaxis: ALps 11. CODE STATUS: Full code Problem List: 1. Left displaced femoral neck fracture 2. Hypertensive urgency 3. Elevated troponin 4. CAD (coronary artery disease) 5. Elevated creatine kinase 6. CKD (chronic kidney disease) stage 3, GFR 30-59 ml/min 7. Diabetes 8. Anemia Pain Ratin Pain Location: NA Pain Goal: Pain 4 or less Pain Plan: Pain pathway Tomorrow's Labs & Rationales: CBC: Following anemia BEP: Following renal function DVT/Prophylaxis: pharmacological PRITESH HAMPTON,[facility] 10/26/16 1219: Attending MD Review Statement Attending Statement Attending MD Statement: examined this patient, discuss w/resident/PA/AIRCRAFT STEEL FABRICATOR, agreed w/resident/PA/AIRCRAFT STEEL FABRICATOR, reviewed EMR data (avail), discussed with nursing, discussed with case mgmt, reviewed images, amended to note Attending Assessment/Plan: Patient seen and examined, feels okay. Did complain of some epigastric pain this morning. Said that his left lower externally pain is controlled with the pain regimen. Patient's troponin did go up yesterday but then did trended down. Blood pressure was very high, repeat reading later in the day after receiving his medications is improving. Vital Signs Date Time Temp Pulse Resp B/P B/P Pulse O2 O2 Flow FiO2 Mean Ox Delivery Rate 10/26 1208 78 152/68 10/26 0832 84 196/70 10/26 0832 99.6 86 16 207/84 94 Room Air 10/25 2350 98.8 80 18 178/70 92 Room Air 10/25 2135 89 198/88 10/25 2132 89 198/88 10/25 2131 89 198/88 10/25 2128 89 198/88 10/25 1906 89 192/72 10/25 1713 99.1 84 18 192/72 93 Room Air 3.0L 10/25 1459 Room Air 10/25 1431 98.1 76 18 170/72 94 Room Air on exam; aox3, nad. cv; s1, s2, rrr resp; clear abd; soft, nt, bs+ ext; 1+ edema lle which is outwardly rotated. Laboratory Tests 10/26 10/25 0610 2009 Chemistry Sodium (137 - 145 mmol/L) 138 Potassium (3.5 - 5.1 mmol/L) 4.1 Chloride (98 - 107 mmol/L) 105 Carbon Dioxide (22 - 30 mmol/L) 19 L Anion Gap (5 - 16) 14 BUN (9 - 20 mg/dL) 36 H Creatinine (0.7 - 1.2 mg/dL) 2.0 H Estimated GFR (>60 ml/min) 34 L BUN/Creatinine Ratio (7 - 25 %) 18.0 Iron (49 - 181 ug/dL) 13 L TIBC (261 - 462 ug/dL) 247 L % Saturation (16 - 45 %) 5 L Ferritin (17.9 - 464 ng/mL) 230.0 Troponin I (<0.11 ng/ml) 0.16 *H Coagulation PT (9.4 - 12.5 SEC) 12.5 INR (0.90 - 1.17) 1.19 H Hematology CBC w Diff NO MAN DIFF REQ WBC (4.8 - 10.8 /CUMM) 10.9 H RBC (4.70 - 6.10 /CUMM) 3.61 L Hgb (14.0 - 18.0 G/DL) 10.7 L Hct (42 - 52 %) 31.5 L MCV (80.0 - 94.0 FL) 87.2 MCH (27.0 - 31.0 PG) 29.7 RDW (11.5 - 14.5 %) 12.6 Plt Count (130 - 400 /CUMM) 193 MPV (7.4 - 10.4 FL) 8.0 Gran % (42.2 - 75.2 %) 76.7 H Lymphocytes % (20.5 - 51.1 %) 9.4 L Monocytes % (1.7 - 9.3 %) 8.8 Eosinophils % (0 - 5 %) 4.4 Basophils % (0.0 - 2.0 %) 0.7 Absolute Granulocytes (1.4 - 6.5 /CUMM) 8.4 H Absolute Lymphocytes (1.2 - 3.4 /CUMM) 1.0 L Absolute Monocytes (0.10 - 0.60 /CUMM) 1.0 H Absolute Eosinophils (0.0 - 0.7 /CUMM) 0.5 Absolute Basophils (0.0 - 0.2 /CUMM) 0.1 PUBS MCHC (33.0 - 37.0 G/DL) 34.0 10/25 10/25 1830 1420 Chemistry Troponin I (<0.11 ng/ml) 0.22 *H Urines Urine Color (YEL,AMB,STR) STRAW Urine Clarity (CLEAR) CLEAR Urine pH (5.0 - 8.0) 6.0 Ur Specific [place] (1.001 - 1.035) 1.020 Urine Protein (NEG,<30 MG/DL) >=300 H Urine Ketones (NEG) NEG Urine Nitrite (NEG) NEG Urine Bilirubin (NEG) NEG Urine Urobilinogen (0.1 - 1.0 EU/dl) 0.2 Ur Leukocyte Esterase (NEG) NEG Ur Microscopic SEDIMENT EXAMINED Urine RBC (0 - 5 /HPF) 1-3 Urine Bacteria (NEG/NONE) FEW H Urine Hemoglobin (NEG) SMALL H Urine Glucose (N MG/DL) NEG A/P; 60 M with pmh sig for HTN, type II DM, PVD, CAD s/p stent placement X7, labile hypertension with med adjustments being made by patient's filter bed placer and station baggage porter, recent vitreous hemorrhage under the care of residency coordinator received Avsatin injections, admitted with a mechanical fall and sustained a left femoral neck fracture with varus angulation at the fracture site. Troponins were high yesterday but they trended down. Her blood pressure was high in the morning but after receiving the medications, repeat reading shows improvement. At this point we can keep the patient on the current regimen and if his blood pressure and heart rate continues to remain high, recommend increasing the labetalol to 400 twice a day as recommended by cardiology. Effient has been held for despite his surgery tomorrow. Creatinine is rising, hold Lasix. Patient is already on chlorthalidone. Monitor creatinine. Please confirm with patients residency coordinator about the use of anti-coagulation postoperatively. DVT px; ALPS for now unless cleared from ophthalmology about the use of pharmacologic DVT prophylaxis.
[2016-10-26 08:20] LABS: PT 12.5 SEC (9.4-12.5)
--- NOTE | 2016-10-26 08:30 | NUR ---
NOTIFIED RESIDENT DR PATTERSON #188 OF MANUAL BP 196/70, P 84. MEDCIATIONS GIVEN EXCEPT PATIENT REFUSED NORVASC. PATIENT WAS TOLD THIS COULD CAUSE SWELLING IN LOWER LEGS. PATIENT HAS +3 LLE, +2 RLE. QUESTIONED RESIDENT IF PATIENT SHOULD HAVE EFFIENT PATIENT POSSIBLE FOR SURGERY. WILL CONTINUE TO MONITOR.
[2016-10-26 08:32] VITALS: BP 207/84
--- NOTE | 2016-10-26 11:14 | PN- Cardiology ---
See Addendum Subjective Subjective: The patient is awake, alert The events of the last 24 hours as well as telemetry were reviewed. Review of Systems: The review of systems is negative for chest pains, palpitations nor lightheadedness. The remainder of the 14 point review of systems is noncontributory with the exception of above. Objective Vital Signs and I&Os Vital Signs Date Time Temp Pulse Resp B/P B/P Pulse O2 O2 Flow FiO2 Mean Ox Delivery Rate 10/26 0832 84 196/70 10/26 0832 99.6 86 16 207/84 94 Room Air 10/25 2350 98.8 80 18 178/70 92 Room Air 10/25 2135 89 198/88 10/25 2132 89 198/88 10/25 2131 89 198/88 10/25 2128 89 198/88 10/25 1906 89 192/72 10/25 1713 99.1 84 18 192/72 93 Room Air 3.0L 10/25 1459 Room Air 10/25 1431 98.1 76 18 170/72 94 Room Air 10/25 1146 72 160/70 10/25 1144 98.6 Intake & Output 10/26 1600 10/26 0800 10/26 0000 10/25 1600 10/25 0800 10/25 0000 Intake Total 830 676 156 1698 Output Total 600 400 600 900 Balance -600 430 -375 -700 1000 Intake, IV 150 225 0 1000 Intake, Oral 680 200 Output, Urine 600 400 600 900 Patient 207 lb Weight Weight Reported by Patient Measurement Method Physical Exam: General: Nontoxic, no apparent distress. HEENT: Sclera and conjunctiva within normal limits, without xanthelasmas. Neck: Carotids 2+ without bruits. Respiratory: Clear to auscultation, air movement is good, without accessory respiratory muscle use. Heart: Regular rate and rhythm, without murmurs, without JVD. Abdomen: Soft, nontender, no masses, normoactive bowel sounds. Extremities: Without clubbing, cyanosis, 1 mm pitting edema in both lower extremities to the mid tibial region. Neuro: Nonfocal exam, strength, 5 out of 5 Skin: Within normal limits without lesions. Psych: Mood and affect: Normal Current Medications: Current Medications Sig/Lynda Start time Last Medication Dose Route Stop Time Status Admin Acetaminophen 650 MG Q6 10/25 1200 AC 10/26 PO 0600 Acetaminophen 1,000 MG Q6P PRN 10/25 0529 AC 10/25 IV 0530 Amlodipine Besylate 10 MG DAILY 10/25 1000 AC 10/25 PO 0924 Chlorthalidone 25 MG DAILY 10/24 2133 AC 10/26 PO 0833 Dextrose/Sodium 1,000 ML ONCE ONE 10/25 1030 DC 10/25 Chloride IV 10/25 2349 1146 Docusate Sodium 100 MG BID PRN 10/25 0800 AC PO Doxazosin Mesylate 4 MG 1000 10/25 1000 DC PO Furosemide 20 MG Q8 10/24 2200 AC 10/26 PO 0600 Hydralazine HCl 100 MG TID 10/25 1830 AC 10/26 PO 0832 Insulin Aspart 0 TIDAC 10/25 1700 AC 10/26 SC 10/27 0000 0830 Insulin Human Regular 0 Q6 10/27 0600 AC SC Insulin Human Regular 0 Q6 10/25 0113 DC 10/25 SC 1156 Isosorbide 60 MG DAILY 10/25 1000 AC 10/26 Mononitrate PO 0832 Labetalol HCl 300 MG BID 10/25 2200 AC 10/26 PO 0834 Morphine Sulfate 2 MG Q4P PRN 10/25 1415 AC 10/26 IV 1037 Morphine Sulfate 4 MG Q4P PRN 10/25 1045 DC IV Patient Medication 1 ED .STK-MED ONE 10/25 1428 NH Teaching ED 10/25 1429 Prasugrel 10 MG DAILY 10/28 1000 AC PO Prasugrel 10 MG DAILY 10/25 1815 DC 10/25 PO 1943 Prazosin HCl 2 MG BID 10/25 1815 10/26 PO 0833 Senna/Docusate Sodium 1 TAB BID PRN 10/25 0800 AC PO Results Last 48 Hrs of Labs/Mics: Laboratory Tests 10/26/16 0610: Anion Gap 14, Estimated GFR 34 L, BUN/Creatinine Ratio 18.0, Iron 13 L, TIBC 247 L, % Saturation 5 L, Ferritin 230.0, PT 12.5, INR 1.19 H, CBC w Diff NO MAN DIFF REQ, RBC 3.61 L, MCV 87.2, MCH 29.7, RDW 12.6, MPV 8.0, Gran % 76.7 H , Lymphocytes % 9.4 L, Monocytes % 8.8, Eosinophils % 4.4, Basophils % 0.7, Absolute Granulocytes 8.4 H, Absolute Lymphocytes 1.0 L, Absolute Monocytes 1.0 H, Absolute Eosinophils 0.5, Absolute Basophils 0.1, [facility] 34.0 10/25/162009: Troponin I 0.16 *H 10/25/16 1830: Urine Color STRAW, Urine Clarity CLEAR, Urine pH 6.0, Ur Specific [place] 1.020, Urine Protein >=300 H, Urine Ketones NEG, Urine Nitrite NEG, Urine Bilirubin NEG, Urine Urobilinogen 0.2, Ur Leukocyte Esterase NEG, Ur Microscopic SEDIMENT EXAMINED, Urine RBC 1-3, Urine Bacteria FEW H, Urine Hemoglobin SMALL H, Urine Glucose NEG 10/25/16 1420: Troponin I 0.22 *H 10/25/16 07: Anion Gap 12, Estimated GFR 39 L, BUN/Creatinine Ratio 18.9, Creatine Kinase 244 H, Troponin I 0.20 *H, CBC w Diff NO MAN DIFF REQ, RBC 3.54 L, MCV 85.7, MCH 29.8, RDW 12.7, MPV 7.9, Gran % 75.9 H, Lymphocytes % 10.7 L, Monocytes % 8.4, Eosinophils % 4.4, Basophils % 0.6, Absolute Granulocytes 6.7 H, Absolute Lymphocytes 0.9 L, Absolute Monocytes 0.7 H, Absolute Eosinophils 0.4, Absolute Basophils 0.1, [facility] 34.7 10/24/16 182: Anion Gap 16, Estimated GFR 36 L, BUN/Creatinine Ratio 20.0, Glucose 125 H, Calcium 9.2, Total Bilirubin 1.0, AST 25, ALT 36, Alkaline Phosphatase 72, Creatine Kinase 244 H, Troponin I 0.04, Lbc-D-Psgqvoeghiv Pept 285 H, Total Protein 7.0, Albumin 4.2, Globulin 2.8, Albumin/Globulin Ratio 1.5, PT 11.7, INR 1.12, APTT 30, CBC w Diff NO MAN DIFF REQ, RBC 3.83 L, MCV 85.3, MCH 29.8, RDW 12.8, MPV 7.5, Gran % 89.8 H, Lymphocytes % 4.1 L, Monocytes % 5.9, Eosinophils % 0, Basophils % 0.2, Absolute Granulocytes 10.4 H, Absolute Lymphocytes 0.5 L, Absolute Monocytes 0.7 H, Absolute Eosinophils 0, Absolute Basophils 0, PUBS MCHC 35.0 Assessment/Plan Assessment/Plan #1 Fracture of the left hip from mechanical fall. #2. Long history of coronary artery disease. Multiple stents in the past. Latest stress test in June 2016 was negative for ischemia but positive for a small posterobasal infarct. He has been managed with dual antiplatelet agents. #3. Hypertension somewhat resistant. He is being managed by a jointer operator in [place]. #4. Diabetes mellitus #5. Chronic renal insufficiency #6. Dyslipidemia #7. Gout #8. Statin intolerance #9. Peripheral vascular disease. Abnormal [place] but patient reports no symptoms from his past note. The patient's blood pressure continues to be suboptimally controlled, and as his heart rate is in the 80s, with a further increase his regimen of labetalol to 400 mg by mouth twice a day. Further titration may be required as needed. Continue telemetry? No
--- NOTE | 2016-10-26 14:04 | NUR ---
WOUND CARE: REPORTED BY PATIENT SAFETY THAT PT ADMITTED S/P FALL AT HOME WITH HIP FRACTURE - PT OBSERVED IN BED ON SUPINE POSITION DROWSY - PT STATED HE HAD BEEN ON THE FLOOR "ALL DAY LONG AFTER I FELL" - WAS UNABLE TO REPOSITION OR RELIEVE PRESSURE AT HOME DUE TO HIP FRACTURE\\ ATTEMPT TO PERFORM A THOROUGH SKIN ASSESSMENT - PT RESISTIVE TO REPOSITIONING FOR EVALUATION OF COMPLETE ASSESSMENT - AT PRESENT MOMENT, SKIN TO BUTTOCKS AND COCCYX APPEARS INTACT, ALTHOUGH PT IS AT HIGH RISK DUE TO IMMOBILITY - AWAITING DELIVERY OF SIZE ESCOBAR MATTRESS THAT IS CURRENTLY ON ORDER RECOMMEDNATION: PREVENTATIVE SKIN CARE PER FACILITY GUIDELINES - Q 1 HOUR REPOSITIONING PLEASE AND USE OF GROUP 2 MATTRESS
[2016-10-26 16:18] VITALS: BP 157/66
[2016-10-26 17:36] VITALS: BP 190/84
[2016-10-26 19:00] VITALS: BP 172/74
[2016-10-26 23:00] VITALS: BP 182/70
[2016-10-27 04:34] LABS: ABSOLUTE BASOPHIL COUNT 0.1 /CUMM (0.0-0.2); ABSOLUTE EOSINOPHIL COUNT 0.4 /CUMM (0.0-0.7); ABSOLUTE GRANULOCYTE CT 8.1 /CUMM (1.4-6.5); ABSOLUTE LYMPH COUNT 1.3 /CUMM (1.2-3.4); ABSOLUTE MONOCYTE COUNT 1.1 /CUMM (0.10-0.60); BASOPHIL % 0.5 % (0.0-2.0); EOSINOPHIL % 3.6 % (0-5); HEMATOCRIT 29.5 % (42-52); MEAN CORPUSCULAR HGB 29.4 PG (27.0-31.0); MEAN CORPUSCULAR HGB CONC 33.7 G/DL (33.0-37.0); MEAN CORPUSCULAR VOLUME 87.3 FL (80.0-94.0); MEAN PLATELET VOLUME 7.7 FL (7.4-10.4); PLATELET COUNT 174 /CUMM (130-400); RBC DISTRIBUTION WIDTH 12.6 % (11.5-14.5); RED BLOOD CELL CT 3.37 /CUMM (4.70-6.10); WHITE BLOOD CELL COUNT 10.9 /CUMM (4.8-10.8)
[2016-10-27 04:40] LABS: PT 12.4 SEC (9.4-12.5)
--- NOTE | 2016-10-27 07:04 | PN- Housestaff ---
TASH PATTERSON 10/27/16 0703: Subjective Follow-up For: 1. Left femoral neck fracture with varus angulation 2. Hypertensive urgency with history of hypertension 3. Anemia 4. Elevated troponin Complaints: Episodes of chest pain last night Tele-Events Since Last Visit: NSR, 1st degree block, HR 72-85bpm Subjective: Interval history: This morning the patient has already been taken to the operating room for surgery and thus unable to complete a physical exam at this time. Report from nursing staff indicate episode of chest discomfort last night that resolved Review of Systems Constitutional: Reports: see HPI. Cardiovascular: Reports: see HPI. Objective Last 24 Hrs of Vital Signs/I&O Vital Signs Date Time Temp Pulse Resp B/P B/P Pulse O2 O2 Flow FiO2 Mean Ox Delivery Rate 10/29 1621 99.3 73 18 118/60 92 10/29 1256 98.8 89 20 128/58 10/29 1253 98.8 89 20 128/58 94 Room Air Room Air 10/29 1104 99.3 84 152/72 10/29 1104 99.3 84 20 152/72 10/29 1103 99.3 84 20 152/72 10/29 1103 99.3 84 20 152/72 10/29 1100 Room Air 3.0L 10/29 1055 Room Air 3.0L 10/29 0842 99.3 84 20 152/72 93 Room Air 10/29 0000 93 Room Air 10/28 2300 98.7 93 20 150/70 93 Room Air 10/28 2202 98.7 89 20 150/70 10/28 2202 98.7 89 20 150/70 10/28 2201 98.7 89 20 150/70 10/28 1818 101.0 Intake & Output 10/29 1600 10/29 0800 10/29 0000 Intake Total 1480 1150 800 Output Total 300 350 150 Balance 1180 800 650 Intake, IV 1000 900 600 Intake, Oral 480 250 200 Number 0 Bowel Movements Output, Urine 300 350 150 Patient 207 lb Weight Physical Exam General Appearance: SEE HPI Current Medications: Current Medications Sig/Lynda Start time Last Medication Dose Route Stop Time Status Admin Acetaminophen 1,000 MG Q6P PRN 10/28 0045 AC 10/29 IV 1111 Acetaminophen 650 MG Q6P PRN 10/28 0045 AC 10/28 PO 0129 Amlodipine Besylate 10 MG DAILY 10/28 1000 AC 10/29 PO 1104 Bisacodyl 5 MG DAILY 10/30 1000 AC PO Bisacodyl 10 MG ONCE ONE 10/29 1630 DC NV 10/29 1631 Chlorthalidone 25 MG DAILY 10/28 1000 DC 10/29 PO 1102 Docusate Sodium 100 MG BID PRN 10/28 0045 AC 10/28 PO 0909 Ferrous Sulfate 325 MG TID 10/28 1000 AC 10/29 PO 1108 Heparin Sodium 25,000 UNIT Q24H 10/28 1600 DC (Porcine) IV Sodium Chloride 500 ML Hydralazine HCl 100 MG TID 10/28 1000 AC 10/29 PO 1103 Insulin Aspart 0 TIDAC 10/28 1200 AC 10/29 SC 1246 Isosorbide 60 MG DAILY 10/28 1000 AC 10/29 Mononitrate PO 1104 Labetalol HCl 300 MG BID 10/29 2200 DC PO Labetalol HCl 300 MG BID 10/29 1245 AC 10/29 PO 1256 Labetalol HCl 300 MG BID 10/28 1000 DC 10/28 PO 2202 Methyl Salicylate 1 RADHA Q6 10/28 1200 AC 10/29 TOP 1256 Morphine Sulfate 2 MG ONCE ONE 10/29 1200 DC 10/29 IV 10/29 1201 1209 Morphine Sulfate 4 MG Q4P PRN 10/29 1200 AC IV Morphine Sulfate 2 MG Q4P PRN 10/28 0045 DC 10/29 IV 1100 Prasugrel 10 MG DAILY 10/29 1200 AC 10/29 PO 1328 Prazosin HCl 2 MG BID 10/28 1000 AC 10/29 PO 1103 Senna/Docusate Sodium 1 TAB BID PRN 10/28 0045 AC 10/28 PO 0909 Sodium Bicarbonate 1,300 MG BID 10/29 1200 AC 10/29 PO 1327 Sodium Chloride 1,000 ML Q13H 10/28 2100 AC 10/29 IV 1334 Warfarin Sodium 5 MG COUMADIN 1700 ONE 10/29 1700 DC PO 10/29 1701 Last 24 Hrs of Lab/Wing Results Last 24 Hrs of Labs/Mics: Laboratory Tests 10/29/16 1053: Urinalysis LIGHT H, Urine Color YEL, Urine Clarity CLEAR, Urine pH 6.0, Ur Specific [place] 1.020, Urine Protein 100 H, Urine Ketones NEG, Urine Nitrite NEG, Urine Bilirubin NEG, Urine Urobilinogen 0.2, Ur Leukocyte Esterase NEG, Ur Microscopic SEDIMENT EXAMINED, Urine RBC 5-10 H, Ur Epithelial Cells FEW, Urine Bacteria FEW H, Urine Hemoglobin SMALL H, Urine Glucose NEG 10/29/16 1053: Urine Osmolality 421, Ur Random Creatinine 87.4, Ur Random Sodium 35, Ur Random Potassium 30.5, Fraction Sodium Excret 0.9 10/29/16 0622: Anion Gap 13, Estimated GFR 21 L, BUN/Creatinine Ratio 20.3, Serum Osmolality 291, Uric Acid 10.9 H, Creatine Kinase 373 H, CBC w Diff NO MAN DIFF REQ, RBC 2.69 L, MCV 87.3, MCH 29.8, RDW 13.2, MPV 8.5, Gran % 72.4, Lymphocytes % 11.9 L, Monocytes % 12.4 H, Eosinophils % 2.8, Basophils % 0.5, Absolute Granulocytes 6.3, Absolute Lymphocytes 1.0 L, Absolute Monocytes 1.1 H, Absolute Eosinophils 0.2, Absolute Basophils 0, PUBS MCHC 34.1 Assessment/Plan Assessment: Mr. Putnam is a 60-year-old gentleman with a PMH of HTN, type II DM, PVD, CAD s/p stent placement X7 () previously followed by his designated broker Dr. Abdirizak Hendrix until he and now sees Dr. Sincere Carrington. Most recently resistant hypertension with medication adjustments since May 2016, a recent admission to [facility] on 09/07/2016 for hypertensive urgency, complicated with vitreous hemorrhage in the left eye that was attributed to heparin for DVT prophylaxis. Patient's electric vehicle electrician Dr. Oscar Huang at [facility] has been involved with his antihypertensive medication adjustment: Increased labetalol dose, started on prazosin, increased Lasix to TID. His renal function had worsened secondary to starting azilsartan which has since been discontinued. For the vitreous hemorrhage she has been followed by his gas maker Dr. Luis F Hayes which was managed with Avastin injection with follow-up plans for photocoagulation. He presented to [facility] on 10/24/2016 after suffering a mechanical fall tripping over a piece of plywood landing on his left hip, denied any preceding headache, dizziness, blurred vision or associated LOC. Due to significant pain he was unable to ambulate independently for an extended period of time. Problem list: 1. Left femoral neck fracture with varus angulation 2. Hypertensive urgency with history of hypertension 3. Elevated troponins 4. CAD with history of stent placement 5. Elevated creatinine kinase 6. CKD 7. Diabetes 8. Vitreous hemorrhage 9. Anemia Plan: 1. Left femoral neck fracture with varus angulation * Patient is currently in the operating room for left hip ORIF * Continue with senna and Colace when necessary for titration of 1-2 BMs per 24 hours 2. Hypertensive urgency with history of hypertension * Pressure is better controlled at this time. * Continue with labetalol 300 mg BID, hydralazine 100 mg TID, amlodipine 10 mg, chlorthalidone 25 mg, prazosin 2 mg BID 3. CAD with history of stent placement * Currently on beta shannan and isosorbide mononitrate * Serial troponins: 0.20, 0.22, 0.16 * Risk stratification per cardiology as of yesterday. Patient is high risk based on his underlying extensive history of CAD 4. Elevated creatinine kinase * Stable at this time 5. CKD * Will monitor daily renal function in the setting of recent immobility and mild elevation in CK * Adjust Lasix according to fluid balance and urine output 6. Diabetes * Consistent carbohydrate 3 diet, insulin sliding scale 7. Vitreous hemorrhage * Records obtained indicate that he is vitreous hemorrhage may have been attributed to heparin. We'll contact the patient's gas maker to obtain further recommendations with regards to DVT prophylaxis moving forward 8. Anemia * Drop in H&H since admission: 10.7/31.5 down from 11.4/32.7 * Fe 13L, TIBC 247L, 5 saturation 5L, ferritin 230.0 * We'll start patient on ferrous sulfate supplementation TID 9. Diet: Consistent carbohydrate 3 10. DVT prophylaxis: ALps 11. CODE STATUS: Full code Problem List: 1. Left displaced femoral neck fracture 2. CAD (coronary artery disease) 3. HTN (hypertension) 4. CKD (chronic kidney disease) stage 3, GFR 30-59 ml/min 5. Elevated troponin 6. Diabetes Pain Ratin Pain Location: Left hip Pain Goal: Pain 4 or less Pain Plan: Morphine 2 mg IV Tomorrow's Labs & Rationales: CBC: Trending anemia BEP: Trending worsening renal function DVT/Prophylaxis: pharmacological EMILEE PRIEST MD 10/27/16 1226: Attending MD Review Statement Attending Statement Attending MD Statement: examined this patient, discuss w/resident/PA/REGISTERED MIDWIFE, agreed w/resident/PA/REGISTERED MIDWIFE, reviewed EMR data (avail), discussed with nursing, discussed with case mgmt, reviewed images, amended to note Attending Assessment/Plan: 60-year-old male with past medical history significant for hypertension, hyperlipidemia, type 2 diabetes mellitus, peripheral vascular disease, coronary artery disease status post stents, labile hypertension, recent vitreous hemorrhage has been admitted on the floor with a mechanical fall with a sustained left femoral neck fracture with varus angulation at the fracture site. Patient is on 5 different medications for control of his high blood pressure and his surgery was also postponed initially due to elevated blood pressure and elevated troponins. I did not happen to see him in the room as the patient was in the OR. We will closely monitor the patient for his elevated blood pressure after the surgery and will follow the recommendations from cardiology.
--- NOTE | 2016-10-27 12:29 | PN- Orthopedic ---
See Addendum Subjective Subjective: Post op check s/p L THR No complaints at this time Has not ambulated yet Objective Vital Signs and I&Os Vital Signs Date Time Temp Pulse Resp B/P B/P Pulse O2 O2 Flow FiO2 Mean Ox Delivery Rate 10/27 0757 101.1 10/27 0424 99.9 10/27 0015 101.3 10/27 0000 CPAP 10/26 2300 101.9 82 20 182/70 92 CPAP 10/26 215 85 184/60 10/26 2156 85 184/60 10/26 2156 85 184/60 10/26 1900 100.6 10/26 1900 100.9 87 172/74 10/26 1736 100.9 96 18 190/84 10/26 1728 87 190/84 10/26 1618 99.1 79 17 157/66 94 Room Air Intake & Output 10/27 1600 10/27 0800 10/27 0000 10/26 1600 10/26 0800 10/26 0000 Intake Total 50 450 480 830 Output Total 850 375 750 600 400 Balance -800 75 -270 -600 430 Intake, IV 50 150 Intake, Oral 0 450 480 680 Number 0 Bowel Movements Output, Urine 850 375 750 600 400 Physical Exam: afebrile post op temp 98 bp 170/80 HR 76 regular RR 18 Sat 98% 2LNC General: awake and alert Chest; clear anteriorly bilaterally Abd: soft Ext: positive sensate, no calf tenderness, warm, no edema, good strength BLE Wound: dressed, dry L hip dressing Assessment/Plan Assessment/Plan 60 yo male s/p L THR Pt underwent THR and due to being on anticoagulation pre-op, lost a significant amount of blood intraop requiring a transfusion of 1 unit of prbc. Check post op Hct PT - WBAT post op antibiotics for 24 hours Would wait to start anticoagulation tomorrow per Dr Orantes Recommend coumadin for dvt ppx post op but will defer to medical team Medical management per primary team Core Measures/Miscellaneous Venous Thromboembolism VTE Risk Factors: Age > 40 VTE Contraindications: No Contraindications VTE Diagnosis: No VTE Type: NONE VTE Confirmed by (Test): NONE Beta Timothy Is Beta Timothy a Home Med? No Antibiotics Is Patient on Antibiotics? Yes If Yes: prophylaxis
--- NOTE | 2016-10-27 12:45 | RADIOLOGY REPORT ---
EXAMINATION: XR PELVIS CLINICAL INFORMATION: Left total hip replacement, in PACU COMPARISON: 10/24/2016 TECHNIQUE: AP view of the pelvis. Patient is slightly obliqued to the right. FINDINGS: The included portion of the left total hip arthroplasty is appropriately aligned. The femoral head component resides in the acetabular cup. The distal portion of the femoral component is not included on these images. No periprosthetic fractures seen at the imaged portion of the prosthesis. Postsurgical gas is present around the neck portion of the femoral component. Mild degenerative arthritis present in the right hip. Degenerative facet arthropathy is noted in the lower lumbar spine. Phleboliths are present in the pelvis. Skin chacorta are partially included. IMPRESSION: Appropriate alignment of the imaged portion of the left total hip prosthesis. The majority of the femoral stem is not included on this image.
[2016-10-27 13:29] LABS: ABSOLUTE BASOPHIL COUNT 0 /CUMM (0.0-0.2); ABSOLUTE EOSINOPHIL COUNT 0.1 /CUMM (0.0-0.7); ABSOLUTE GRANULOCYTE CT 9.7 /CUMM (1.4-6.5); ABSOLUTE LYMPH COUNT 0.5 /CUMM (1.2-3.4); ABSOLUTE MONOCYTE COUNT 1.1 /CUMM (0.10-0.60); BASOPHIL % 0.4 % (0.0-2.0); EOSINOPHIL % 1.2 % (0-5); GRANULOCYTE % 84.5 % (42.2-75.2); HEMATOCRIT 31.2 % (42-52); MEAN CORPUSCULAR HGB 29.6 PG (27.0-31.0); MEAN CORPUSCULAR HGB CONC 33.6 G/DL (33.0-37.0); MEAN CORPUSCULAR VOLUME 88.3 FL (80.0-94.0); MEAN PLATELET VOLUME 8.3 FL (7.4-10.4); PLATELET COUNT 163 /CUMM (130-400); RBC DISTRIBUTION WIDTH 13.5 % (11.5-14.5); RED BLOOD CELL CT 3.54 /CUMM (4.70-6.10); WHITE BLOOD CELL COUNT 11.4 /CUMM (4.8-10.8)
[2016-10-27 13:50] VITALS: BP 162/90
[2016-10-27 16:44] VITALS: BP 180/88
[2016-10-27 20:39] VITALS: BP 162/74
--- NOTE | 2016-10-27 21:26 | PN- Cardiology ---
Subjective Subjective: No complaints s/p left total hip replacement. Objective Vital Signs and I&Os Vital Signs Date Time Temp Pulse Resp B/P B/P Pulse O2 O2 Flow FiO2 Mean Ox Delivery Rate 10/27 2039 82 162/74 10/27 1724 100.0 10/27 1717 100.0 10/27 1716 86 196/86 10/27 1716 84 196/86 10/27 1644 98.1 96 20 180/88 93 Room Air 10/27 1350 97.8 81 20 162/90 91 Room Air 10/27 0757 101.1 10/27 0424 99.9 10/27 0015 101.3 10/27 0000 CPAP 10/26 2300 101.9 82 20 182/70 92 CPAP 10/26 2156 85 184/60 10/26 2156 85 184/60 10/26 2156 85 184/60 Intake & Output 10/27 1600 10/27 0800 10/27 0000 10/26 1600 10/26 0800 10/26 0000 Intake Total 150 50 450 480 830 Output Total 650 850 375 750 600 400 Balance -500 -800 75 -270 -600 430 Intake, IV 150 50 150 Intake, Oral 0 450 480 680 Number 0 Bowel Movements Output, Urine 650 850 375 750 600 400 Physical Exam: Well-developed, morbidly obese middle-aged male in no acute distress with nasal oxygen in place. Vital signs: See above. Neck: No JVD. Lungs: Clear to auscultation bilaterally. Heart: S1, S2 with no murmur, gallop, rub appreciated. Abdomen: Soft, nontender, positive bowel sounds. Extremities: 1+ edema. Assessment/Plan Assessment/Plan [id number] w/ hx HTN, DLD, DM, CKD, PVD, CAD (s/p multiple stent placements 2005 2010) admitted for mechanical fall and is now s/p total left hip replacement and without complaints. No significant dysrhythmias noted on telemetry. No significant electrocardiographic changes. Continue present regimen. Continue telemetry? Yes
[2016-10-27 23:56] VITALS: BP 180/80
[2016-10-28 01:30] VITALS: BP 160/80
[2016-10-28 08:32] LABS: ABSOLUTE BASOPHIL COUNT 0 /CUMM (0.0-0.2); ABSOLUTE EOSINOPHIL COUNT 0.1 /CUMM (0.0-0.7); ABSOLUTE GRANULOCYTE CT 7.2 /CUMM (1.4-6.5); ABSOLUTE LYMPH COUNT 1.3 /CUMM (1.2-3.4); ABSOLUTE MONOCYTE COUNT 1.3 /CUMM (0.10-0.60); BASOPHIL % 0.4 % (0.0-2.0); GRANULOCYTE % 73.2 % (42.2-75.2); HEMATOCRIT 27.4 % (42-52); MEAN CORPUSCULAR HGB 30.2 PG (27.0-31.0); MEAN CORPUSCULAR HGB CONC 34.2 G/DL (33.0-37.0); MEAN CORPUSCULAR VOLUME 88.3 FL (80.0-94.0); MEAN PLATELET VOLUME 8.5 FL (7.4-10.4); PLATELET COUNT 167 /CUMM (130-400); RBC DISTRIBUTION WIDTH 13.2 % (11.5-14.5); WHITE BLOOD CELL COUNT 9.9 /CUMM (4.8-10.8)
[2016-10-28 08:47] VITALS: BP 180/90
--- NOTE | 2016-10-28 09:46 | PN- Housestaff ---
See Addendum Subjective Follow-up For: 1. Left femoral neck fracture with varus angulation 2. Hypertensive urgency with history of hypertension 3. Anemia 4. Elevated troponin Tele-Events Since Last Visit: Normal sinus rhythm, first-degree heart block, heart rate 69-91, no overnight events. Subjective: Patient spiked fever last night and this morning with MAXIMUM TEMPERATURE being 103.8 round 00:16. Blood pressure is running 180s/90s. Troponin increased this a.m. to 0.92, however patient denies any chest pain, shortness breath, palpitation, nausea or any discomfort. Patient is complaining of right knee pain that he believes its because of his gout. Review of Systems Constitutional: Reports: see HPI. Objective Last 24 Hrs of Vital Signs/I&O Vital Signs Date Time Temp Pulse Resp B/P B/P Pulse O2 O2 Flow FiO2 Mean Ox Delivery Rate 10/28 0909 80 180/90 10/28 0908 80 180/90 10/28 0908 80 180/90 10/28 0847 99.0 80 20 180/90 93 Room Air 10/28 0255 100.5 10/28 0222 100.5 10/28 0130 102.0 76 20 160/80 92 Room Air 10/28 0129 102.0 10/28 0129 102.0 10/28 0016 103.8 10/28 0016 90 180/88 10/28 0000 CPAP 10/27 2356 103.8 90 24 180/80 90 Room Air 10/27 2138 84 162/74 10/27 2136 84 162/76 10/27 2039 82 162/74 10/27 1724 100.0 10/27 1717 100.0 10/27 1716 86 196/86 10/27 1716 84 196/86 10/27 1644 98.1 96 20 180/88 93 Room Air 10/27 1350 97.8 81 20 162/90 91 Room Air Intake & Output 10/28 1600 10/28 0800 10/28 0000 Intake Total 70 450 Output Total 1100 Balance -1030 450 Intake, IV 20 Intake, Oral 50 450 Number 0 Bowel Movements Output, Urine 1100 Physical Exam General Appearance: Alert, Oriented X3, Cooperative, No Acute Distress HEENT: Atraumatic, PERRLA, EOMI, Mucous Membr. moist/pink Cardiovascular: Regular Rate, Normal S1, Normal S2, No Murmurs Lungs: Clear to Auscultation, Normal Air Movement Abdomen: Normal Bowel Sounds, Soft, No Tenderness Neurological: Normal Speech Extremities: No Clubbing, No Cyanosis, No Edema Current Medications: Current Medications Sig/Lynda Start time Last Medication Dose Route Stop Time Status Admin Acetaminophen 1,000 MG Q6P PRN 10/28 0045 AC IV Acetaminophen 650 MG Q6P PRN 10/28 0045 AC 10/28 PO 0129 Acetaminophen 650 MG Q6P PRN 10/26 1914 DC PO Acetaminophen 1,000 MG Q6P PRN 10/25 0529 DC 10/28 IV 0016 Amlodipine Besylate 10 MG DAILY 10/28 1000 AC 10/28 PO 0909 Amlodipine Besylate 10 MG DAILY 10/25 1000 DC 10/25 PO 0924 Cefazolin Sodium 1,000 MG ONCE ONE 10/28 0045 DC 10/28 IV 10/28 0046 0125 Cefazolin Sodium 2 GM IQ8 10/28 0000 DC N/A 1 UNIT IV 10/28 0829 Chlorthalidone 25 MG DAILY 10/28 1000 AC 10/28 PO 0908 Chlorthalidone 25 MG DAILY 10/24 2133 DC 10/27 PO 1721 Diclofenac Sodium 1 RADHA 4 TIMES/DAY 10/28 1122 DC TOP Docusate Sodium 100 MG BID PRN 10/28 0045 AC 10/28 PO 0909 Docusate Sodium 100 MG .STK-MED ONE 10/27 2149 DC PO 10/27 2150 Docusate Sodium 100 MG BID PRN 10/25 0800 DC 10/27 PO 2151 Ferrous Sulfate 325 MG TID 10/28 1000 AC 10/28 PO 0912 Ferrous Sulfate 325 MG TID 10/26 1753 DC 10/27 PO 2136 Hydralazine HCl 100 MG TID 10/28 1000 AC 10/28 PO 0908 Hydralazine HCl 100 MG TID 10/25 1830 DC 10/27 PO 2136 Insulin Aspart 0 TIDAC 10/28 1200 AC SC Insulin Human Regular 0 TIDAC/HS 10/27 1700 DC 10/27 SC 2135 Isosorbide 60 MG DAILY 10/28 1000 AC 10/28 Mononitrate PO 0908 Isosorbide 60 MG DAILY 10/25 1000 DC 10/26 Mononitrate PO 0832 Labetalol HCl 300 MG BID 10/28 1000 AC 10/28 PO 0909 Labetalol HCl 300 MG BID 10/25 2200 DC 10/28 PO 0016 Methyl Salicylate 1 RADHA Q6 10/28 1200 AC TOP Morphine Sulfate 2 MG Q4P PRN 10/28 0045 AC 10/28 IV 0836 Morphine Sulfate 2 MG Q4P PRN 10/25 1415 DC 10/27 IV 2151 Prasugrel 10 MG DAILY 10/28 1000 DC PO Prazosin HCl 2 MG BID 10/28 1000 AC 10/28 PO 0909 Prazosin HCl 2 MG BID 10/25 1815 DC 10/27 PO 2138 Senna/Docusate Sodium 1 TAB BID PRN 10/28 0045 AC 10/28 PO 0909 Senna/Docusate Sodium 1 TAB BID PRN 10/25 0800 DC 10/26 PO 2154 Warfarin Sodium 2.5 MG COUMADIN 1700 ONE 10/28 1700 AC PO 10/28 1701 Last 24 Hrs of Lab/Wing Results Last 24 Hrs of Labs/Mics: Laboratory Tests 10/28/16 0706: Anion Gap 15, Estimated GFR 28 L, BUN/Creatinine Ratio 20.8, Troponin I 0.92 *H , CBC w Diff NO MAN DIFF REQ, RBC 3.10 L, MCV 88.3, MCH 30.2, RDW 13.2, MPV 8.5 , Gran % 73.2, Lymphocytes % 12.7 L, Monocytes % 12.7 H, Eosinophils % 1.0, Basophils % 0.4, Absolute Granulocytes 7.2 H, Absolute Lymphocytes 1.3, Absolute Monocytes 1.3 H, Absolute Eosinophils 0.1, Absolute Basophils 0, PUBS MCHC 34.2 Microbiology 10/28 1304 URINE ROUT: Urine Culture - ORD 10/28 1304 BLOOD: Blood Culture - ORD 10/28 1304 BLOOD: Blood Culture - ORD Assessment/Plan Assessment: Mr. Putnam is a 60-year-old gentleman with a PMH of HTN, type II DM, PVD, CAD s/p stent placement X7 () previously followed by his silk screen operator Dr. Abdirizak Hendrix until he and now sees Dr. Sincere Carrington. Most recently resistant hypertension with medication adjustments since May 2016, a recent admission to [facility] on 09/07/2016 for hypertensive urgency, complicated with vitreous hemorrhage in the left eye that was attributed to heparin for DVT prophylaxis. Patient's model maker firearms Dr. Oscar Huang at [facility] has been involved with his antihypertensive medication adjustment: Increased labetalol dose, started on prazosin, increased Lasix to TID. His renal function had worsened secondary to starting azilsartan which has since been discontinued. For the vitreous hemorrhage she has been followed by his pipe washer Dr. Luis F Hayes which was managed with Avastin injection with follow-up plans for photocoagulation. He presented to [facility] on 10/24/2016 after suffering a mechanical fall tripping over a piece of plywood landing on his left hip, denied any preceding headache, dizziness, blurred vision or associated LOC. Due to significant pain he was unable to ambulate independently for an extended period of time. Problem list: 1. Left femoral neck fracture with varus angulation 2. Hypertensive urgency with history of hypertension 3. Elevated troponins 4. CAD with history of stent placement 5. Elevated creatinine kinase 6. CKD 7. Diabetes 8. Vitreous hemorrhage 9. Anemia Plan: 1. Left femoral neck fracture with varus angulation * Patient is now postoperative day #1 status post left total hip arthroplasty for femoral neck fracture * Pain management with morphine 2 mg * Bowel regimen with senna and Colace when necessary for titration of 1-2 BMs per 24 hours * Doppler ultrasound lower extremities on 10/25/2016: Negative for DVT 2. Hypertensive urgency with history of hypertension * Blood pressure continues to remain elevated, however we have been able to confirm all his prescribed medications from [facility] records * Continue with labetalol 300 mg BID, hydralazine 100 mg TID, amlodipine 10 mg, chlorthalidone 25 mg, prazosin 2 mg BID 3. CAD with history of stent placement, new troponin elevation * Currently on beta shannan and isosorbide mononitrate * Recent serial troponins 0.41,0.42,0.92. Patient has no EKG changes * Patient has a chronic kidney disease and status post surgery, this can be demand ischemia * We will hold on heparin until Dr. Gibbs sees patient * We will follow cardiology recommendation 4. Elevated creatinine kinase * NTD 5. CKD * Will monitor daily renal function in the setting of recent immobility and mild elevation in CK * Adjust Lasix according to fluid balance and urine output 6. Diabetes * Consistent carbohydrate 3 diet, insulin sliding scale 7. Vitreous hemorrhage * Records obtained indicate that he is vitreous hemorrhage may have been attributed to heparin. We'll contact the patient's pipe washer to obtain further recommendations with regards to DVT prophylaxis moving forward. * However we will need to start the IV heparin today because of the troponin 8. Anemia * Drop in H&H since admission: 10.7/31.5 down from 11.4/32.7 * Fe 13L, TIBC 247L, 5 saturation 5L, ferritin 230.0 * Continue ferrous sulfate supplementation TID 9. History of gout with right knee pain and swelling Patient right knee is swelled and painful, he had fever yesterday, we will call surgery to try to tap the knee so we differentiate septic joint from gout. * We will avoid NSAIDs given the kidney injury * If it is gout best option will be intra-articular steroid * We will speak to surgical PA about tapping the knee Diet: Consistent carbohydrate 3 DVT prophylaxis: ALps and IV heparin Full code Problem List: 1. Elevated troponin 2. CKD (chronic kidney disease) stage 3, GFR 30-59 ml/min 3. HTN (hypertension) Pain Ratin Pain Location: right knee Pain Goal: Remain pain free Pain Plan: See A&P Tomorrow's Labs & Rationales: See A&P
--- NOTE | 2016-10-28 09:52 | PN- Orthopedic ---
See Addendum Subjective Subjective: Patient is now postoperative day #1 status post left total hip arthroplasty for femoral neck fracture. Mobilization was attempted by physical therapy today, however patient did not do well because of right knee pain due to his baseline gout. Otherwise he states that left hip pain is relatively controlled. He did have temps to 102 overnight, but is afebrile this morning. Denies headache, dizziness, chest pain, shortness of breath. Objective Vital Signs and I&Os Vital Signs Date Time Temp Pulse Resp B/P B/P Pulse O2 O2 Flow FiO2 Mean Ox Delivery Rate 10/28 0909 80 180/90 10/28 0908 80 180/90 10/28 0908 80 180/90 10/28 0847 99.0 80 20 180/90 93 Room Air 10/28 0255 100.5 10/28 0222 100.5 10/28 0130 102.0 76 20 160/80 92 Room Air 10/28 0129 102.0 10/28 0129 102.0 10/28 0016 103.8 10/28 0016 90 180/88 10/28 0000 CPAP 10/27 2356 103.8 90 24 180/80 90 Room Air 10/27 2138 84 162/74 10/27 2136 84 162/76 10/27 2039 82 162/74 10/27 1724 100.0 10/27 1717 100.0 10/27 1716 86 196/86 10/27 1716 84 196/86 10/27 1644 98.1 96 20 180/88 93 Room Air 10/27 1350 97.8 81 20 162/90 91 Room Air Intake & Output 10/28 1600 10/28 0800 10/28 0000 10/27 1600 10/27 0800 10/27 0000 Intake Total 70 450 150 50 450 Output Total 1100 650 850 375 Balance -1030 450 -500 -800 75 Intake, IV 20 150 50 Intake, Oral 50 450 0 450 Number 0 0 Bowel Movements Output, Urine 1100 650 850 375 Physical Exam: Gen.: Patient is resting in bed, but easily arousable. No acute distress. Extremities: The left hip/thigh dressing is clean, dry, and intact. There is mild thigh swelling, but within expected limits. No evidence of ecchymosis or hematoma at this time. Lower extremity sensation is intact. Strength of dorsiflexion and plantar flexion are 4 out of 5 on the operative side. No calf tenderness or significant lower extremity edema are appreciated bilaterally. Results Last 48 Hours of Labs: Laboratory Tests 10/28 10/27 0706 1230 Chemistry Sodium (137 - 145 mmol/L) 135 L Potassium (3.5 - 5.1 mmol/L) 4.5 Chloride (98 - 107 mmol/L) 105 Carbon Dioxide (22 - 30 mmol/L) 15 L Anion Gap (5 - 16) 15 BUN (9 - 20 mg/dL) 50 H Creatinine (0.7 - 1.2 mg/dL) 2.4 H Estimated GFR (>60 ml/min) 28 L BUN/Creatinine Ratio (7 - 25 %) 20.8 Troponin I (<0.11 ng/ml) Pending Hematology CBC w Diff NO MAN DIFF REQ MAN DIFF ORDERED WBC (4.8 - 10.8 /CUMM) 9.9 11.4 H RBC (4.70 - 6.10 /CUMM) 3.10 L 3.54 L Hgb (14.0 - 18.0 G/DL) 9.4 L 10.5 L Hct (42 - 52 %) 27.4 L 31.2 L MCV (80.0 - 94.0 FL) 88.3 88.3 MCH (27.0 - 31.0 PG) 30.2 29.6 RDW (11.5 - 14.5 %) 13.2 13.5 Plt Count (130 - 400 /CUMM) 167 163 MPV (7.4 - 10.4 FL) 8.5 8.3 Gran % (42.2 - 75.2 %) 73.2 84.5 H Lymphocytes % (20.5 - 51.1 %) 12.7 L 4.6 L Monocytes % (1.7 - 9.3 %) 12.7 H 9.3 Eosinophils % (0 - 5 %) 1.0 1.2 Basophils % (0.0 - 2.0 %) 0.4 0.4 Absolute Granulocytes (1.4 - 6.5 /CUMM) 7.2 H 9.7 H Segmented Neutrophils (42.2 - 75.2 %) 82 H Band Neutrophils (0.0 - 5.0 %) 5 Absolute Lymphocytes (1.2 - 3.4 /CUMM) 1.3 0.5 L Lymphocytes (20.5 - 51.1 %) 6 L Monocytes (1.7 - 9.3 %) 6 Absolute Monocytes (0.10 - 0.60 /CUMM) 1.3 H 1.1 H Eosinophils (0 - 5.0 %) 1 Absolute Eosinophils (0.0 - 0.7 /CUMM) 0.1 0.1 Absolute Basophils (0.0 - 0.2 /CUMM) 0 0 Platelet Estimate (ADEQUATE) VERIFIED BY SMEAR Polychromasia 1+ Poikilocytosis 1+ Ovalocytes 1+ PUBS MCHC (33.0 - 37.0 G/DL) 34.2 33.6 10/27 10/27 10/26 0420 0420 2300 Chemistry Sodium (137 - 145 mmol/L) 136 L Potassium (3.5 - 5.1 mmol/L) 4.0 Chloride (98 - 107 mmol/L) 105 Carbon Dioxide (22 - 30 mmol/L) 18 L Anion Gap (5 - 16) 13 BUN (9 - 20 mg/dL) 43 H Creatinine (0.7 - 1.2 mg/dL) 2.3 H Estimated GFR (>60 ml/min) 29 L BUN/Creatinine Ratio (7 - 25 %) 18.7 Phosphorus (2.5 - 4.5 mg/dL) 5.2 H Magnesium (1.6 - 2.3 mg/dL) 2.1 Troponin I (<0.11 ng/ml) 0.42 *H 0.41 *H Coagulation PT (9.4 - 12.5 SEC) 12.4 INR (0.90 - 1.17) 1.18 H Hematology CBC w Diff NO MAN DIFF REQ WBC (4.8 - 10.8 /CUMM) 10.9 H RBC (4.70 - 6.10 /CUMM) 3.37 L Hgb (14.0 - 18.0 G/DL) 9.9 L Hct (42 - 52 %) 29.5 L MCV (80.0 - 94.0 FL) 87.3 MCH (27.0 - 31.0 PG) 29.4 RDW (11.5 - 14.5 %) 12.6 Plt Count (130 - 400 /CUMM) 174 MPV (7.4 - 10.4 FL) 7.7 Gran % (42.2 - 75.2 %) 74.0 Lymphocytes % (20.5 - 51.1 %) 11.6 L Monocytes % (1.7 - 9.3 %) 10.3 H Eosinophils % (0 - 5 %) 3.6 Basophils % (0.0 - 2.0 %) 0.5 Absolute Granulocytes (1.4 - 6.5 /CUMM) 8.1 H Absolute Lymphocytes (1.2 - 3.4 /CUMM) 1.3 Absolute Monocytes (0.10 - 0.60 /CUMM) 1.1 H Absolute Eosinophils (0.0 - 0.7 /CUMM) 0.4 Absolute Basophils (0.0 - 0.2 /CUMM) 0.1 PUBS MCHC (33.0 - 37.0 G/DL) 33.7 Assessment/Plan Assessment/Plan Patient is a 60-year-old male who is now postoperative day #1 status post left total hip arthroplasty due to femoral neck fracture. During this admission, patient experienced chest pain and elevation of troponins which are being managed by cardiology. He otherwise remains relatively stable from a surgical standpoint, but mobilization has been limited due to right knee pain. Plan: -Continue physical therapy as tolerated for mobilization. Patient may weight- bear as tolerated on the operative side. -Plan for dry dressing changes starting tomorrow. -H&H is relatively stable. Okay to resume Effient. Continue to monitor H&H daily. -Encourage incentive spirometer. -Alps for DVT prophylaxis. -Medical management per primary team and cardiology. Problem List: 1. Femoral neck fracture
--- NOTE | 2016-10-28 15:28 | RADIOLOGY REPORT ---
EXAMINATION: XR PORTABLE CHEST CLINICAL INFORMATION: Elevated troponins. COMPARISON: Chest x-ray of 10/25/2016, 10/24/2016 and 01/20/2008. TECHNIQUE: Portable frontal view of the chest was obtained. FINDINGS: The cardiomediastinal silhouette is unchanged. The lungs are mildly hypoexpanded. There is stable mild elevation of the right hemidiaphragm. There is mild bronchovascular crowding. Mild right basilar subsegmental atelectasis. No focal consolidation or significant pleural effusions. No evidence of overt changes of pulmonary edema. IMPRESSION: Hypoexpanded lungs. No evidence of pulmonary edema. Mild right basilar subsegmental atelectasis.
[2016-10-28 15:30] VITALS: BP 144/64
--- NOTE | 2016-10-28 16:35 | PN- Cardiology ---
Subjective Subjective: No complaints, but admits to feeling tired, and admits to some surgical site discomfort. Denies chest discomfort, palpitations, shortness of breath, etc. Objective Vital Signs and I&Os Vital Signs Date Time Temp Pulse Resp B/P B/P Pulse O2 O2 Flow FiO2 Mean Ox Delivery Rate 10/28 0909 80 180/90 10/28 0908 80 180/90 10/28 0908 80 180/90 10/28 0847 99.0 80 20 180/90 93 Room Air 10/28 0255 100.5 10/28 0222 100.5 10/28 0130 102.0 76 20 160/80 92 Room Air 10/28 0129 102.0 10/28 0129 102.0 10/28 0016 103.8 10/28 0016 90 180/88 10/28 0000 CPAP 10/27 2356 103.8 90 24 180/80 90 Room Air 10/27 2138 84 162/74 10/27 2136 84 162/76 10/27 2039 82 162/74 10/27 1724 100.0 10/27 1717 100.0 10/27 1716 86 196/86 10/27 1716 84 196/86 10/27 1644 98.1 96 20 180/88 93 Room Air Intake & Output 10/28 1600 10/28 0800 10/28 0000 10/27 1600 10/27 0800 10/27 0000 Intake Total 70 450 150 50 450 Output Total 350 1100 650 850 375 Balance -350 -1030 450 -500 -800 75 Intake, IV 20 150 50 Intake, Oral 50 450 0 450 Number 0 0 Bowel Movements Output, Urine 350 1100 650 850 375 Physical Exam: Well-developed, morbidly obese middle-aged male in no acute distress with nasal oxygen in place. Vital signs: See above. Neck: No JVD. Lungs: Clear to auscultation bilaterally. Heart: S1, S2 with no murmur, gallop, rub appreciated. Abdomen: Soft, nontender, positive bowel sounds. Extremities: 1+ edema. Current Medications: Current Medications Sig/Lynda Start time Last Medication Dose Route Stop Time Status Admin Acetaminophen 1,000 MG Q6P PRN 10/28 44 AC IV Acetaminophen 650 MG Q6P PRN 10/285 AC 10/28 PO 0129 Acetaminophen 650 MG Q6P PRN 05/19 1914 DC PO Acetaminophen 1,000 MG Q6P PRN 10/25 0529 DC 10/28 IV 0016 Amlodipine Besylate 10 MG DAILY 10/28 1000 AC 10/28 PO 0909 Amlodipine Besylate 10 MG DAILY 10/25 1000 DC 10/25 PO 0924 Cefazolin Sodium 1,000 MG ONCE ONE 10/28 0045 DC 10/28 IV 10/28 0046 0125 Cefazolin Sodium 2 GM IQ8 10/28 0000 DC N/A 1 UNIT IV 10/28 0829 Chlorthalidone 25 MG DAILY 10/28 1000 AC 10/28 PO 0908 Chlorthalidone 25 MG DAILY 10/24 2133 DC 10/27 PO 1721 Diclofenac Sodium 1 RADHA 4 TIMES/DAY 10/28 1122 DC TOP Docusate Sodium 100 MG BID PRN 10/28 0045 AC 10/28 PO 0909 Docusate Sodium 100 MG .STK-MED ONE 10/27 2149 DC PO 10/27 2150 Docusate Sodium 100 MG BID PRN 10/25 0800 DC 10/27 PO 2151 Ferrous Sulfate 325 MG TID 10/28 1000 AC 10/28 PO 0912 Ferrous Sulfate 325 MG TID 10/26 1753 DC 10/27 PO 2136 Heparin Sodium 25,000 UNIT Q24H 10/28 1600 AC (Porcine) IV Sodium Chloride 500 ML Heparin Sodium 25,000 UNIT Q24H 10/28 1315 DC (Porcine) IV Sodium Chloride 500 ML Hydralazine HCl 100 MG TID 10/28 1000 AC 10/28 PO 0908 Hydralazine HCl 100 MG TID 10/25 1830 DC 10/27 PO 2136 Insulin Aspart 0 TIDAC 10/28 1200 AC 10/28 SC 1347 Insulin Human Regular 0 TIDAC/HS 10/27 1700 DC 10/27 SC 2135 Isosorbide 60 MG DAILY 10/28 1000 AC 10/28 Mononitrate PO 0908 Isosorbide 60 MG DAILY 10/25 1000 DC 10/26 Mononitrate PO 0832 Labetalol HCl 300 MG BID 10/28 1000 AC 10/28 PO 0909 Labetalol HCl 300 MG BID 10/25 2200 DC 10/28 PO 0016 Methyl Salicylate 1 RADHA Q6 10/28 1200 AC 10/28 TOP 1347 Morphine Sulfate 2 MG Q4P PRN 10/28 0045 AC 10/28 IV 0836 Morphine Sulfate 2 MG Q4P PRN 10/25 1415 DC 10/27 IV 2151 Prasugrel 10 MG DAILY 10/28 1000 DC PO Prazosin HCl 2 MG BID 10/28 1000 AC 10/28 PO 0909 Prazosin HCl 2 MG BID 10/25 1815 DC 10/27 PO 2138 Senna/Docusate Sodium 1 TAB BID PRN 10/28 0045 AC 10/28 PO 0909 Senna/Docusate Sodium 1 TAB BID PRN 10/25 0800 DC 10/26 PO 215 Warfarin Sodium 2.5 MG COUMADIN 1700 ONE 10/28 1700 CAN PO 10/28 170 Results Last 48 Hrs of Labs/Mics: Laboratory Tests 10/28/16 1525: Fluid WBC Pending, Fld Total RBCs Counted Pending 10/28/16 1400: C-Reactive Prot, Quant > 9.0 H, ESR Westergren 71 H 10/28/16 0706: Anion Gap 15, Estimated GFR 28 L, BUN/Creatinine Ratio 20.8, Troponin I 0.92 *H , CBC w Diff NO MAN DIFF REQ, RBC 3.10 L, MCV 88.3, MCH 30.2, RDW 13.2, MPV 8.5 , Gran % 73.2, Lymphocytes % 12.7 L, Monocytes % 12.7 H, Eosinophils % 1.0, Basophils % 0.4, Absolute Granulocytes 7.2 H, Absolute Lymphocytes 1.3, Absolute Monocytes 1.3 H, Absolute Eosinophils 0.1, Absolute Basophils 0, PUBS MCHC 34.2 10/27/16 1230: CBC w Diff MAN DIFF ORDERED, RBC 3.54 L, MCV 88.3, MCH 29.6, RDW 13.5, MPV 8.3, Gran % 84.5 H, Lymphocytes % 4.6 L, Monocytes % 9.3, Eosinophils % 1.2, Basophils % 0.4, Absolute Granulocytes 9.7 H, Segmented Neutrophils 82 H, Band Neutrophils 5, Absolute Lymphocytes 0.5 L, Lymphocytes 6 L, Monocytes 6, Absolute Monocytes 1.1 H, Eosinophils 1, Absolute Eosinophils 0.1, Absolute Basophils 0, Platelet Estimate VERIFIED BY SMEAR, Polychromasia 1+, Poikilocytosis 1+, Ovalocytes 1+, PUBS MCHC 33.6 10/27/16 0420: Troponin I 0.42 *H 10/27/16 0420: Anion Gap 13, Estimated GFR 29 L, BUN/Creatinine Ratio 18.7, Phosphorus 5.2 H, Magnesium 2.1, PT 12.4, INR 1.18 H, CBC w Diff NO MAN DIFF REQ, RBC 3.37 L, MCV 87.3, MCH 29.4, RDW 12.6, MPV 7.7, Gran % 74.0, Lymphocytes % 11.6 L, Monocytes % 10.3 H, Eosinophils % 3.6, Basophils % 0.5, Absolute Granulocytes 8.1 H, Absolute Lymphocytes 1.3, Absolute Monocytes 1.1 H, Absolute Eosinophils 0.4, Absolute Basophils 0.1, PUBS MCHC 33.7 10/26/16 2300: Troponin I 0.41 *H Microbiology 10/27 1999 NASOPHARYN: Influenza Virus A & B Rapid Smear - COMP Recent Imaging Studies: CXR (10/28/2016): Hypoexpanded lungs. No evidence of pulmonary edema. Mild right basilar subsegmental atelectasis. Assessment/Plan Assessment/Plan [id number] w/ hx HTN, DLD, DM, CKD, PVD, CAD (s/p multiple stent placements 2005 2010) admitted for mechanical fall and is now s/p total left hip replacement and without complaints. He has had a modest bump in his troponin I that continues to elevate. Would follow-up troponin I until we document that is trending downwards. Consider IV heparin without a bolus if cleared for this by surgery. No significant dysrhythmias noted on telemetry. No significant electrocardiographic changes. Continue present regimen. Continue telemetry? Yes
[2016-10-28 23:00] VITALS: BP 150/70
--- NOTE | 2016-10-29 06:44 | PN- Housestaff ---
TASH PATTERSON 10/29/16 0644: Subjective Follow-up For: L femoral neck fx w/ varus angulation s/p ORIF R knee effusion s/p aspiration of 30cc straw colored fluid Acute on chronic renal failure Anemia hyponatremia Hypertensive urgency Elevated troponin Pain management Complaints: RIght knee pain Left leg pain Tele-Events Since Last Visit: NSR HR 67-84 bpm Subjective: Interval history: This morning Mr. Putnam mentions that he is experiencing leg discomfort due to the ALPs. He reports noticeable pain in his left hip and right knee with movement. He denies any fevers or chills at this time, recurrence of chest pain, new shortness of breath, palpitations, nausea, abdominal pain. Review of Systems Constitutional: Reports: see HPI. EENTM: Reports: no symptoms. Cardiovascular: Reports: see HPI. Respiratory: Reports: no symptoms. Gastrointestinal: Reports: no symptoms. Genitourinary: Reports: no symptoms. Musculoskeletal: Reports: see HPI. Objective Last 24 Hrs of Vital Signs/I&O Vital Signs Date Time Temp Pulse Resp B/P B/P Pulse O2 O2 Flow FiO2 Mean Ox Delivery Rate 10/29 0842 99.3 84 20 152/72 93 Room Air 10/29 0000 93 Room Air 10/28 2300 98.7 93 20 150/70 93 Room Air 10/28 2202 98.7 89 20 150/70 10/28 2202 98.7 89 20 150/70 10/28 2201 98.7 89 20 150/70 10/28 1818 101.0 10/28 1700 101.0 10/28 1700 146/70 10/28 1600 92 Room Air 10/28 1530 98.2 80 16 144/64 92 Room Air Intake & Output 10/29 1600 10/29 0800 10/29 0000 Intake Total 1150 800 Output Total 350 150 Balance 800 650 Intake, IV 900 600 Intake, Oral 250 200 Output, Urine 350 150 Physical Exam General Appearance: Alert, Cooperative, No Acute Distress Skin: no evidence of hematoma on the lateral aspect of the left hip. Clean dressing applied at the incision site. HEENT: Mucous Membr. moist/pink Cardiovascular: Regular Rate, Normal S1, Normal S2 Lungs: Normal Air Movement, DIminished breath sounds in the basilar regions BL Abdomen: Normal Bowel Sounds, Soft, No Tenderness Extremities: Normal Pulses, Pitting edema BL LE up towards the knees. RIght knee edema decreased since yesterday. Left hip has a clean dressing on the lateral aspect Vascular: Pulses Symmetrical Current Medications: Current Medications Sig/Lynda Start time Last Medication Dose Route Stop Time Status Admin Acetaminophen 1,000 MG Q6P PRN 10/28 0045 AC 10/28 IV 1818 Acetaminophen 650 MG Q6P PRN 10/28 0045 AC 10/28 PO 0129 Amlodipine Besylate 10 MG DAILY 10/28 1000 AC 10/28 PO 0909 Chlorthalidone 25 MG DAILY 10/28 1000 AC 10/28 PO 0908 Diclofenac Sodium 1 RADHA 4 TIMES/DAY 10/28 1122 DC TOP Docusate Sodium 100 MG BID PRN 10/28 0045 AC 10/28 PO 0909 Ferrous Sulfate 325 MG TID 10/28 1000 AC 10/28 PO 2201 Heparin Sodium 25,000 UNIT Q24H 10/28 1600 DC (Porcine) IV Sodium Chloride 500 ML Heparin Sodium 25,000 UNIT Q24H 10/28 1315 DC (Porcine) IV Sodium Chloride 500 ML Hydralazine HCl 100 MG TID 10/28 1000 AC 10/28 PO 2202 Insulin Aspart 0 TIDAC 10/28 1200 AC 10/29 SC 0822 Isosorbide 60 MG DAILY 10/28 1000 AC 10/28 Mononitrate PO 0908 Labetalol HCl 300 MG BID 10/28 1000 AC 10/28 PO 2202 Methyl Salicylate 1 RADHA Q6 10/28 1200 AC 10/29 TOP 0533 Morphine Sulfate 2 MG Q4P PRN 10/28 0045 AC 10/28 IV 1818 Prasugrel 10 MG DAILY 10/28 1000 DC PO Prazosin HCl 2 MG BID 10/28 1000 AC 10/28 PO 2201 Senna/Docusate Sodium 1 TAB BID PRN 10/28 0045 AC 10/28 PO 0909 Sodium Chloride 1,000 ML Q13H 10/28 2100 AC 10/28 IV 1900 Warfarin Sodium 2.5 MG COUMADIN 1700 ONE 10/28 1700 CAN PO 10/28 1701 Last 24 Hrs of Lab/Wing Results Last 24 Hrs of Labs/Mics: Laboratory Tests 10/29/16 0622: Anion Gap 13, Estimated GFR 21 L, BUN/Creatinine Ratio 20.3, CBC w Diff NO MAN DIFF REQ, RBC 2.69 L, MCV 87.3, MCH 29.8, RDW 13.2, MPV 8.5, Gran % 72.4, Lymphocytes % 11.9 L, Monocytes % 12.4 H, Eosinophils % 2.8, Basophils % 0.5, Absolute Granulocytes 6.3, Absolute Lymphocytes 1.0 L, Absolute Monocytes 1.1 H, Absolute Eosinophils 0.2, Absolute Basophils 0, PUBS MCHC 34.1 10/28/16 1720: Troponin I 0.68 *H 10/28/16 1525: Lymphocytes 1, % Normal PMNs 93, Fluid WBC 58577 H, Fld Mesothelial Cells 6, Fld Total RBCs Counted 3850 H, Sodium Urate Crystals FEW NA UR CRYSTALS 10/28/16 1400: C-Reactive Prot, Quant > 9.0 H, ESR Westergren 71 H Microbiology 10/28 1525 BODY FLUID: Body Fluid Culture - RES 10/28 1525 BODY FLUID: Gram Stain - RES 10/28 1405 BLOOD: Blood Culture - RECD 10/28 1400 BLOOD: Blood Culture - RECD 10/28 1304 URINE ROUT: Urine Culture - COLB Assessment/Plan Assessment: Mr. Putnam is a 60-year-old gentleman with a PMH of HTN, type II DM, PVD, CAD s/p stent placement X7 () previously followed by his commercial leasing agent Dr. Abdirizak Hendrix until he and now sees Dr. Sincere Carrington. Most recently resistant hypertension with medication adjustments since May 2016, a recent [facility]2016 for hypertensive urgency, complicated with vitreous hemorrhage in the left eye that was attributed to heparin for DVT prophylaxis. 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 Oscar Huang at [facility] has been involved with his antihypertensive medication adjustment: Increased labetalol dose, started on prazosin, increased Lasix to TID. His renal function had worsened secondary to starting azilsartan which has since been discontinued. For the vitreous hemorrhage she has been followed by his gynecology teacher Dr. Luis F Hayes which was managed with Avastin injection with follow-up plans for photocoagulation. He presented to [facility] on 10/24/2016 after suffering a mechanical fall tripping over a piece of plywood landing on his left hip, denied any preceding headache, dizziness, blurred vision or associated LOC. Due to significant pain he was unable to ambulate independently for an extended period of time. Problem list: 1. Left femoral neck fracture with varus angulation s/p ORIF (10/27/2016) 2. R knee effusion s/p aspiration of 30cc straw colored fluid 3. Acute on chronic renal failure 4. Anemia 5. Hyponatremia 6. Hypertensive urgency 7. Elevated troponins 8. CAD with history of stent placement 9. Elevated creatinine kinase 10. Diabetes 11. History of Vitreous hemorrhage Plan: 1. L femoral neck fx w/ varus angulation s/p ORIF * Patient is now postoperative day #2 s/p L total hip arthroplasty for femoral neck fracture * Pain management with morphine 2 mg Q4PRN * In the setting of drop ion H/H, will repeat CBC this afternoon at 4pm. I persistent drop, obtain CT of right hip to assess for hematoma * Bowel regimen with senna and Colace when necessary for titration of 1-2 BMs per 24 hours 2. Right knee effusion S/P aspiration of 30 mL straw colored fluid (10/28/2016): * Fluid analysis negative for uric acid crystals * 10,670 WBCs, 2850 RBCs * Culture and Gram stain negative thus far * Pain management at this time with elevation 3. Acute on chronic renal failure * Worsening renal function over the past 3 days: BUN/CR 61/3.0 up from 38/1.9 on admission * Chand catheter in place with good urine output. Follow-up renal ultrasound later this afternoon. Will assess urine osmolality and urine lites * Nephrology consult appreciated. Recommendations at this time are for continued with normal saline and 1300 mg sodium bicarbonate BID * Continue with fluid hydration NS @ 125cc/hr 4. Anemia * Noticeable drop in H&H. Stool guaiac negative * Type and screen, transfuse 1 unit PRBC for target hematocrit above 24 * Fe 13L, TIBC 247L, 5 saturation 5L, ferritin 230.0 * Continue ferrous sulfate supplementation TID * Will repeat CBC later this afternoon and if persistently low obtain CT of the pelvis/left thigh to assess for hematoma * Patient is started on Coumadin today for DVT prophylaxis 5. Hyponatremia * Sodium 130 this morning * Serum osmolality: Pending * Urine osmolality: Pending * Continue with fluid hydration NS @ 125cc/hr 6. Hypertensive urgency with history of hypertension * Blood pressures better controlled at this time. * Continue with labetalol 300 mg BID, hydralazine 100 mg TID, amlodipine 10 mg, prazosin 2 mg BID * In the setting of worsening renal function, recommendations from nephrology at this time are to discontinue chlorthalidone 25 mg * If blood pressure control becomes an issue, we'll increase metoprolol to 400 mg :PO BID 7. Elevated troponins/CAD with history of stent placement * Previously on Effient 10 mg daily which was held for 2 days prior to surgery * In the setting of drop in H&H, starting the patient on Coumadin for DVT prophylaxis we did confirm with cardiology on maintaining the patient on 10 mg Effient. * We'll transfuse 1 unit PRBC today to maintain hematocrit above 24 8. Elevated creatinine kinase * Previous CK levels were within normal limits. The setting of worsening renal function we'll recheck levels time 9. History of gout with right knee pain and swelling * Follow-up uric acid level. Joint aspirate of right knee negative for uric acid crystals * Continue with colchicine * We will avoid NSAIDs given the kidney injury 10. Diabetes * Accu-Cheks of the past 24 hours between 166 and 304 * Continue with sliding scale 11. History of Vitreous hemorrhage * Stable at this time 12. DVT prophylaxis * Doppler ultrasound lower extremities on 10/25/2016: Negative for DVT * Patient started on Coumadin today Diet: Consistent carbohydrate 3 Full code Problem List: 1. Left displaced femoral neck fracture 2. S/P ORIF (open reduction internal fixation) fracture 3. Effusion, right knee 4. Acute on chronic renal failure 5. Anemia 6. Hyponatremia 7. HTN (hypertension) 8. Elevated troponin 9. Hypertensive urgency 10. CAD (coronary artery disease) 11. Diabetes Pain Ratin Pain Location: Left thigh, rigtht knee Pain Goal: Pain 4 or less Pain Plan: Morphine Tomorrow's Labs & Rationales: CC: Trending anemia BEP: Trending worsening renal function INR: Started on Coumadin DVT/Prophylaxis: pharmacological PRITESH HAMPTON,[facility] 10/29/16 1320: Attending MD Review Statement Attending Statement Attending MD Statement: examined this patient, discuss w/resident/PA/SEX WORKER OR ESCORT, agreed w/resident/PA/SEX WORKER OR ESCORT, reviewed EMR data (avail), discussed with nursing, discussed with case mgmt, reviewed images, amended to note Attending Assessment/Plan: Patient seen and examined, not very comfortable as he was c/o some pain in lle post surgical. BP improved. right knee pain is better. Vital Signs Date Time Temp Pulse Resp B/P B/P Pulse O2 O2 Flow FiO2 Mean Ox Delivery Rate 10/29 1256 98.8 89 20 128/58 10/29 1253 98.8 89 20 128/58 94 Room Air Room Air 10/29 1104 99.3 84 152/72 10/29 1104 99.3 84 20 152/72 10/29 1103 99.3 84 20 152/72 10/29 1103 99.3 84 20 152/72 10/29 1100 Room Air 3.0L 10/29 1055 Room Air 3.0L 10/29 0842 99.3 84 20 152/72 93 Room Air 10/29 0000 93 Room Air 10/28 2300 98.7 93 20 150/70 93 Room Air 10/28 2202 98.7 89 20 150/70 10/28 2202 98.7 89 20 150/70 10/28 2201 98.7 89 20 150/70 10/28 1818 101.0 10/28 1700 101.0 10/28 1700 146/70 10/28 1600 92 Room Air 10/28 1530 98.2 80 16 144/64 92 Room Air on exam; aox3, nad. cv; s1,s2, rrr resp; clear abd; soft, nt, bs+ ext; trace edema lle. Laboratory Tests 10/29 10/29 1053 1053 Urines Urinalysis LIGHT H Urine Color (YEL,AMB,STR) YEL Urine Clarity (CLEAR) CLEAR Urine pH (5.0 - 8.0) 6.0 Ur Specific Be[place] (1.001 - 1.035) 1.020 Urine Protein (NEG,<30 MG/DL) 100 H Urine Ketones (NEG) NEG Urine Nitrite (NEG) NEG Urine Bilirubin (NEG) NEG Urine Urobilinogen (0.1 - 1.0 EU/dl) 0.2 Ur Leukocyte Esterase (NEG) NEG Ur Microscopic SEDIMENT EXAMINED Urine RBC (0 - 5 /HPF) 5-10 H Ur Epithelial Cells (NONE,FEW) FEW Urine Bacteria (NEG/NONE) FEW H Urine Hemoglobin (NEG) SMALL H Urine Osmolality (300 - 1000 MOSM/KG) 421 Ur Random Creatinine (mg/dL) 87.4 Ur Random Sodium (30 - 90 mmol/L) 35 Ur Random Potassium (mmol/L) 30.5 Fraction Sodium Excret (<1% %) 0.9 Urine Glucose (N MG/DL) NEG 10/29 10/28 0622 1720 Chemistry Sodium (137 - 145 mmol/L) 130 L Potassium (3.5 - 5.1 mmol/L) 4.2 Chloride (98 - 107 mmol/L) 101 Carbon Dioxide (22 - 30 mmol/L) 16 L Anion Gap (5 - 16) 13 BUN (9 - 20 mg/dL) 61 H Creatinine (0.7 - 1.2 mg/dL) 3.0 H Estimated GFR (>60 ml/min) 21 L BUN/Creatinine Ratio (7 - 25 %) 20.3 Serum Osmolality (285 - 295 MOSM/KG) 291 Uric Acid (3.5 - 8.5 mg/dL) 10.9 H Creatine Kinase (55 - 170 U/L) 373 H Troponin I (<0.11 ng/ml) 0.68 *H Hematology CBC w Diff NO MAN DIFF REQ WBC (4.8 - 10.8 /CUMM) 8.7 RBC (4.70 - 6.10 /CUMM) 2.69 L Hgb (14.0 - 18.0 G/DL) 8.0 L Hct (42 - 52 %) 23.5 L MCV (80.0 - 94.0 FL) 87.3 MCH (27.0 - 31.0 PG) 29.8 RDW (11.5 - 14.5 %) 13.2 Plt Count (130 - 400 /CUMM) 170 MPV (7.4 - 10.4 FL) 8.5 Gran % (42.2 - 75.2 %) 72.4 Lymphocytes % (20.5 - 51.1 %) 11.9 L Monocytes % (1.7 - 9.3 %) 12.4 H Eosinophils % (0 - 5 %) 2.8 Basophils % (0.0 - 2.0 %) 0.5 Absolute Granulocytes (1.4 - 6.5 /CUMM) 6.3 Absolute Lymphocytes (1.2 - 3.4 /CUMM) 1.0 L Absolute Monocytes (0.10 - 0.60 /CUMM) 1.1 H Absolute Eosinophils (0.0 - 0.7 /CUMM) 0.2 Absolute Basophils (0.0 - 0.2 /CUMM) 0 PUBS MCHC (33.0 - 37.0 G/DL) 34.1 10/28 10/28 1525 1400 Chemistry C-Reactive Prot, Quant (<1.0 mg/dL) > 9.0 H Hematology Lymphocytes (%) 1 % Normal PMNs (%) 93 ESR Westergren (0 - 10 MM) 71 H Other Body Source Fluid WBC (0 - 5 /CUMM) 70127 H Fld Mesothelial Cells (%) 6 Fld Total RBCs Counted (0 /CUMM) 3850 H Urines Sodium Urate Crystals (NONE) FEW NA UR CRYSTALS A/P; 60 M with pmh sig for HTN, type II DM, PVD, CAD s/p stent placement X7, labile hypertension with med adjustments being made by patient's commercial leasing agent and inflated ball molder, recent vitreous hemorrhage under the care of gynecology teacher received Avsatin injections, admitted with a mechanical fall and sustained a left femoral neck fracture with varus angulation at the fracture site s/p left KRISTIN POD #2. post op care per ortho. Bp improved on current regimen. Pt on morphine for pain control will try to switch to percocet for dispo planning. Resume Effient as recommended by cards. Cr worse, pt has ac/ch renal failure. Appreciate renal input, please follow recs. DVt Px; Pt will be on coumadin. Sig drop in H&H today. Stool gauic neg. Lilely acute blood loss anemia from post op blood loss. Will transfuse one unit RBC 2/2 to the fact that he did have positive trops prior to surgery.
--- NOTE | 2016-10-29 07:17 | PN- Orthopedic ---
Subjective Subjective: POD#2 S/P LEFT KRISTIN ALSO, RIGHT KNEE ASPIRATION FOR EFFUSION NO MAJOR EVENTS OVERNIGHT DENIES CP, SOB, NO N+V AT THIS TIME DIFFICULT TO MOBILIZE YESTERDAY DUE TO RIGHT KNEE PAIN LESS PAIN TO RIGHT KNEE THIS AM Objective Vital Signs and I&Os Vital Signs Date Time Temp Pulse Resp B/P B/P Pulse O2 O2 Flow FiO2 Mean Ox Delivery Rate 10/29 0000 93 Room Air 10/28 2300 98.7 93 20 150/70 93 Room Air 10/28 2202 98.7 89 20 150/70 10/28 2202 98.7 89 20 150/70 10/28 2201 98.7 89 20 150/70 10/28 1818 101.0 10/28 1700 101.0 10/28 1700 146/70 10/28 1600 92 Room Air 10/28 1530 98.2 80 16 144/64 92 Room Air 10/28 0909 80 180/90 10/28 0908 80 180/90 10/28 0908 80 180/90 10/28 0847 99.0 80 20 180/90 93 Room Air Intake & Output 10/29 0800 10/29 0000 10/28 1600 10/28 0800 10/28 0000 10/27 1600 Intake Total 1150 800 70 450 150 Output Total 350 800 129 5648 650 Balance 800 650 -350 -1030 450 -500 Intake, IV 900 600 20 150 Intake, Oral 250 200 50 450 Number 0 Bowel Movements Output, Urine 350 924 312 0026 650 Physical Exam: LEFT LE: DRSG CHANGED, WOUND C/D/I THIGH SOFT NO CALF TENDERNESS BILAT DISTAL CMS INTACT RIGHT LE: MINIMAL KNEE EFFUSION THIS AM SIGNIFICANT RIGHT KNEE PAIN WITH PASSIVE ROM AT BEDSIDE NO ERYTHEMA NOTED Assessment/Plan Assessment/Plan ORTHO STABLE TOPICAL TX FOR RIGHT KNEE PAIN SEEM TO HELP PLAN F/U KNEE ASPIRATE CX/S- GRAM STAIN(NO ORGANISMS) POSTERIOR HIP PRECAUTIONS LEFT HIP MOBILIZE TO CHAIR/AMBULATE DVT PROPHYLAXIS WILL NEED REHAB PLACEMENT
[2016-10-29 08:26] LABS: ABSOLUTE EOSINOPHIL COUNT 0.2 /CUMM (0.0-0.7); ABSOLUTE GRANULOCYTE CT 6.3 /CUMM (1.4-6.5); ABSOLUTE MONOCYTE COUNT 1.1 /CUMM (0.10-0.60); HEMATOCRIT 23.5 % (42-52); MEAN CORPUSCULAR HGB 29.8 PG (27.0-31.0); MEAN CORPUSCULAR HGB CONC 34.1 G/DL (33.0-37.0); MEAN CORPUSCULAR VOLUME 87.3 FL (80.0-94.0); MEAN PLATELET VOLUME 8.5 FL (7.4-10.4); PLATELET COUNT 170 /CUMM (130-400); RBC DISTRIBUTION WIDTH 13.2 % (11.5-14.5); RED BLOOD CELL CT 2.69 /CUMM (4.70-6.10); WHITE BLOOD CELL COUNT 8.7 /CUMM (4.8-10.8)
[2016-10-29 08:42] VITALS: BP 152/72
[2016-10-29 08:56] LABS: ABSOLUTE BASOPHIL COUNT 0 /CUMM (0.0-0.2); BASOPHIL % 0.5 % (0.0-2.0); EOSINOPHIL % 2.8 % (0-5); GRANULOCYTE % 72.4 % (42.2-75.2)
--- NOTE | 2016-10-29 09:52 | PN- Cardiology ---
Subjective Subjective: The patient is awake, alert Denies chest pains or palpitations The events of the last 24 hours as well as telemetry were reviewed. Review of Systems: The review of systems is negative for chest pains, palpitations nor lightheadedness. The remainder of the 14 point review of systems is noncontributory with the exception of above. Objective Vital Signs and I&Os Vital Signs Date Time Temp Pulse Resp B/P B/P Pulse O2 O2 Flow FiO2 Mean Ox Delivery Rate 10/29 0842 99.3 84 20 152/72 93 Room Air 10/29 0000 93 Room Air 10/28 2300 98.7 93 20 150/70 93 Room Air 10/28 2202 98.7 89 20 150/70 10/28 2202 98.7 89 20 150/70 10/28 2201 98.7 89 20 150/70 10/28 1818 101.0 10/28 1700 101.0 10/28 1700 146/70 10/28 1600 92 Room Air 10/28 1530 98.2 80 16 144/64 92 Room Air Intake & Output 10/29 1600 10/29 0800 10/29 0000 10/28 1600 10/28 0800 10/28 0000 Intake Total 1150 800 70 450 Output Total 350 440 052 2133 Balance 800 650 -350 -1030 450 Intake, IV 900 600 20 Intake, Oral 250 200 50 450 Number 0 Bowel Movements Output, Urine 350 151 905 [id number] Physical Exam: General: Nontoxic, no apparent distress. HEENT: Sclera and conjunctiva within normal limits, without xanthelasmas. Neck: Carotids 2+ without bruits. Respiratory: Scattered rhonchi, air movement is good, without accessory respiratory muscle use. Heart: Regular rate and rhythm, without murmurs, without JVD. Abdomen: Soft, nontender, no masses, normoactive bowel sounds. Extremities: Without clubbing, cyanosis, without edema. Neuro: Nonfocal exam, strength, 5 out of 5 Skin: Within normal limits without lesions. Psych: Mood and affect: Normal Current Medications: Current Medications Sig/Lynda Start time Last Medication Dose Route Stop Time Status Admin Acetaminophen 1,000 MG Q6P PRN 10/28 0045 AC 10/28 IV 1818 Acetaminophen 650 MG Q6P PRN 10/28 0045 AC 10/28 PO 0129 Amlodipine Besylate 10 MG DAILY 10/28 1000 AC 10/28 PO 0909 Chlorthalidone 25 MG DAILY 10/28 1000 AC 10/28 PO 0908 Diclofenac Sodium 1 RADHA 4 TIMES/DAY 10/28 1122 DC TOP Docusate Sodium 100 MG BID PRN 10/28 0045 AC 10/28 PO 0909 Ferrous Sulfate 325 MG TID 10/28 1000 AC 10/28 PO 2201 Heparin Sodium 25,000 UNIT Q24H 10/28 1600 DC (Porcine) IV Sodium Chloride 500 ML Heparin Sodium 25,000 UNIT Q24H 10/28 1315 DC (Porcine) IV Sodium Chloride 500 ML Hydralazine HCl 100 MG TID 10/28 1000 AC 10/28 PO 2202 Insulin Aspart 0 TIDAC 10/28 1200 AC 10/29 SC 0822 Isosorbide 60 MG DAILY 10/28 1000 AC 10/28 Mononitrate PO 0908 Labetalol HCl 300 MG BID 10/28 1000 AC 10/28 PO 2202 Methyl Salicylate 1 RADHA Q6 10/28 1200 AC 10/29 TOP 0533 Morphine Sulfate 2 MG Q4P PRN 10/28 0045 AC 10/28 IV 1818 Prasugrel 10 MG DAILY 10/28 1000 DC PO Prazosin HCl 2 MG BID 10/28 1000 AC 10/28 PO 2201 Senna/Docusate Sodium 1 TAB BID PRN 10/28 0045 AC 10/28 PO 0909 Sodium Chloride 1,000 ML Q13H 10/28 2100 AC 10/28 IV 1900 Warfarin Sodium 2.5 MG COUMADIN 1700 ONE 10/28 1700 CAN PO 10/28 1701 Results Last 48 Hrs of Labs/Mics: Laboratory Tests 10/29/16 0622: Anion Gap 13, Estimated GFR 21 L, BUN/Creatinine Ratio 20.3, CBC w Diff NO MAN DIFF REQ, RBC 2.69 L, MCV 87.3, MCH 29.8, RDW 13.2, MPV 8.5, Gran % 72.4, Lymphocytes % 11.9 L, Monocytes % 12.4 H, Eosinophils % 2.8, Basophils % 0.5, Absolute Granulocytes 6.3, Absolute Lymphocytes 1.0 L, Absolute Monocytes 1.1 H, Absolute Eosinophils 0.2, Absolute Basophils 0, PUBS MCHC 34.1 10/28/16 1720: Troponin I 0.68 *H 10/28/16 1525: Lymphocytes 1, % Normal PMNs 93, Fluid WBC 40482 H, Fld Mesothelial Cells 6, Fld Total RBCs Counted 3850 H, Sodium Urate Crystals FEW NA UR CRYSTALS 10/28/16 1400: C-Reactive Prot, Quant > 9.0 H, ESR Westergren 71 H 10/28/16 0706: Anion Gap 15, Estimated GFR 28 L, BUN/Creatinine Ratio 20.8, Troponin I 0.92 *H , CBC w Diff NO MAN DIFF REQ, RBC 3.10 L, MCV 88.3, MCH 30.2, RDW 13.2, MPV 8.5 , Gran % 73.2, Lymphocytes % 12.7 L, Monocytes % 12.7 H, Eosinophils % 1.0, Basophils % 0.4, Absolute Granulocytes 7.2 H, Absolute Lymphocytes 1.3, Absolute Monocytes 1.3 H, Absolute Eosinophils 0.1, Absolute Basophils 0, PUBS MCHC 34.2 10/27/16 1230: CBC w Diff MAN DIFF ORDERED, RBC 3.54 L, MCV 88.3, MCH 29.6, RDW 13.5, MPV 8.3, Gran % 84.5 H, Lymphocytes % 4.6 L, Monocytes % 9.3, Eosinophils % 1.2, Basophils % 0.4, Absolute Granulocytes 9.7 H, Segmented Neutrophils 82 H, Band Neutrophils 5, Absolute Lymphocytes 0.5 L, Lymphocytes 6 L, Monocytes 6, Absolute Monocytes 1.1 H, Eosinophils 1, Absolute Eosinophils 0.1, Absolute Basophils 0, Platelet Estimate VERIFIED BY SMEAR, Polychromasia 1+, Poikilocytosis 1+, Ovalocytes 1+, PUBS MCHC 33.6 Assessment/Plan Assessment/Plan #1 Fracture of the left hip from mechanical fall. #2. Long history of coronary artery disease. Multiple stents in the past. Latest stress test in June 2016 was negative for ischemia but positive for a small posterobasal infarct. He has been managed with dual antiplatelet agents. #3. Hypertension somewhat resistant. He is being managed by a composition instructor in [place]. #4. Diabetes mellitus #5. Chronic renal insufficiency #6. Dyslipidemia #7. Gout #8. Statin intolerance #9. PVD. Abnormal [place] but patient reports no symptoms from his past note. #10. Elevated troponin isoenzyme The patient is now status post ORIF of his left hip. He remains intermittently febrile. Consideration for further follow-up by ID may be warranted. Blood cultures have been negative to date. Elevated troponin isoenzymes: This is in the setting of uncontrolled hypertension, and acute hip fracture as well as acute on chronic kidney disease and the peak troponin isoenzyme 0.9, and is trending downward. At this time, we will continue to manage his blood pressures, and would suggest increasing labetalol to 400 mg by mouth twice a day further testing for an underlying new burden of ischemia will be performed through Stress testing as an outpatient. Acute on chronic kidney injury: Input by nephrology may prove beneficial, and given the acute rise in the setting of fevers, consultation should be considered Continue telemetry? Yes
--- NOTE | 2016-10-29 11:27 | Cons- Nephrology ---
General Information and HPI Consulting Request Date of Consult: 10/29/16 Requested By: PRITESH HAMPTON,DIANA Reason for Consult: worsening renal function Source of Information: patient, old records Exam Limitations: no limitations History of Present Illness: 60 yr old WM w mult med problems including HTN, DM, obesity/DIANELYS, CAD, & CKD admit w mechanical fall 10/24 --> L femoral neck fx. Known mod, stage 3B, CKD w baseline Cr ~ 2 associated w proteinuria & retinopathy intolerant DEWAYNE interruption due to hyperK. Underwent hip surg 10/27 & course complicated by fever, troponin leak, & rising Cr w/o oliguria. No IV contrast, but on topical NSAIDs w/o IV or po; no documented hypotension. No uremic sx; no SOB. Has Chand & receiving IV fluids. Has distant hx of renal stone but no recent renal colic. Allergies/Medications Allergies: Coded Allergies: clopidogrel (From PLAVIX) (Intermediate, HIVES 10/24/16) indomethacin (From INDOCIN) (Intermediate, HIVES 10/24/16) azilsartan (From EDARBI) (NEAR KIDNEY FAILURE 10/24/16) Home Med List: Amlodipine Besylate 10 MG TABLET 10 MG PO DAILY HTN (Reported) Chlorthalidone 25 MG TABLET 1 TAB PO DAILY HTN (Reported) Doxazosin Mesylate 4 MG TABLET 1 TAB PO DAILY htn (Reported) Furosemide (Lasix) 20 MG TABLET 1 TAB PO Q8 HTN (Reported) Isosorbide Mononitrate (Isosorbide Mononitrate ER) 60 MG TAB.ER.24H 60 MG PO DAILY ANGINA (Reported) Labetalol HCl 200 MG TABLET 200 MG PO BID HEART (Reported) Metformin HCl 500 MG TABLET 1 TAB PO BID DIABETES (Reported) Review of Systems Review of Systems Constitutional: Reports: fever. EENTM: Denies: no symptoms. Cardiovascular: Denies: no symptoms. Respiratory: Denies: no symptoms. GI: Denies: no symptoms. Genitourinary: Denies: no symptoms. Musculoskeletal: Reports: see HPI, joint swelling (R knee). Skin: Denies: no symptoms. Neurological/Psychological: Denies: no symptoms. Hematologic/Endocrine: Denies: no symptoms. Immunologic/Allergic: Denies: no symptoms. All Other Systems: Reviewed and Negative Past History Travel History Traveled to [place] past 21 day No Medical History Neurological: NONE EENT: left eye vitreous hemorrhage, diabetic retinopathy Cardiovascular: CAD, hypertension, myocardial infarction, PVD Respiratory: obstructive sleep apnea, USES CPAP Gastrointestinal: NONE Hepatic: NONE Renal: chronic kidney disease, stone Psychiatric: NONE Endocrine: diabetes Blood Disorders: NONE Cancer(s): NONE RESPONDER/Reproductive: NONE Other Medical Hx: Lyme disease Surgical History Surgical History: cardiac stent placement x7 Family History Relations & Conditions If Any: Relation not specified for: FH: diabetes mellitus FH: hypertension Psychosocial History Where Do You Live? Home Who Do You Live With? spouse Primary Language: Albanian Smoking Status: Former Smoker (Quit 30 Years Ago) ETOH Use: occasional use Illicit Drug Use: denies illicit drug use Functional Ability ADLs Independent: dressing, eating, toileting, bathing. Ambulation: independent IADLs Independent: shopping, housework, finances, food prep, telephone, transportation , medication admin. ECHO Results (as available) EF% 60 Exam & Diagnostic Data Vital Signs and I&O Vital Signs Date Time Temp Pulse Resp B/P B/P Pulse O2 O2 Flow FiO2 Mean Ox Delivery Rate 10/29 1100 Room Air 3.0L 10/29 1055 Room Air 3.0L 10/29 0842 99.3 84 20 152/72 93 Room Air 10/29 0000 93 Room Air 10/28 2300 98.7 93 20 150/70 93 Room Air 10/28 2202 98.7 89 20 150/70 10/28 2202 98.7 89 20 150/70 10/28 2201 98.7 89 20 150/70 10/28 1818 101.0 10/28 1700 101.0 10/28 1700 146/70 10/28 1600 92 Room Air 10/28 1530 98.2 80 16 144/64 92 Room Air Intake & Output 10/29 1600 10/29 0400 10/28 1600 10/28 0400 10/27 1600 10/27 0400 Intake Total 1150 800 70 450 200 450 Output Total 100 667 6290 1500 375 Balance 800 650 -1380 450 -1300 75 Intake, IV 900 600 20 200 Intake, Oral 250 200 50 450 0 450 Number 0 0 Bowel Movements Output, Urine 431 814 1370 1500 375 Physical Exam General Appearance: well developed/nourished, no apparent distress, obese Head: atraumatic, normal appearance Eyes: Bilateral: normal appearance. Ears, Nose, Throat: normal ENT inspection Neck: normal inspection Respiratory: no respiratory distress, quiet respiration, lungs clear Cardiovascular: regular rate/rhythm, friction rub (none) Gastrointestinal: soft, non-tender, no organomegaly Back: normal inspection Extremities: no edema Neurologic/Psych: no motor/sensory deficits, awake, alert, oriented x 3, body engineer II- XII nml as tested Skin: intact, normal color, warm/dry Lymphatic: no anterior cervical homer, no axillary adenopathy Results Pertinent Lab Results: Laboratory Tests 10/29 10/28 0622 1720 Chemistry Sodium (137 - 145 mmol/L) 130 L Potassium (3.5 - 5.1 mmol/L) 4.2 Chloride (98 - 107 mmol/L) 101 Carbon Dioxide (22 - 30 mmol/L) 16 L Anion Gap (5 - 16) 13 BUN (9 - 20 mg/dL) 61 H Creatinine (0.7 - 1.2 mg/dL) 3.0 H Estimated GFR (>60 ml/min) 21 L BUN/Creatinine Ratio (7 - 25 %) 20.3 Serum Osmolality (285 - 295 MOSM/KG) Pending Troponin I (<0.11 ng/ml) 0.68 *H Hematology CBC w Diff NO MAN DIFF REQ WBC (4.8 - 10.8 /CUMM) 8.7 RBC (4.70 - 6.10 /CUMM) 2.69 L Hgb (14.0 - 18.0 G/DL) 8.0 L Hct (42 - 52 %) 23.5 L MCV (80.0 - 94.0 FL) 87.3 MCH (27.0 - 31.0 PG) 29.8 RDW (11.5 - 14.5 %) 13.2 Plt Count (130 - 400 /CUMM) 170 MPV (7.4 - 10.4 FL) 8.5 Gran % (42.2 - 75.2 %) 72.4 Lymphocytes % (20.5 - 51.1 %) 11.9 L Monocytes % (1.7 - 9.3 %) 12.4 H Eosinophils % (0 - 5 %) 2.8 Basophils % (0.0 - 2.0 %) 0.5 Absolute Granulocytes (1.4 - 6.5 /CUMM) 6.3 Absolute Lymphocytes (1.2 - 3.4 /CUMM) 1.0 L Absolute Monocytes (0.10 - 0.60 /CUMM) 1.1 H Absolute Eosinophils (0.0 - 0.7 /CUMM) 0.2 Absolute Basophils (0.0 - 0.2 /CUMM) 0 PUBS MCHC (33.0 - 37.0 G/DL) 34.1 10/28 10/28 1525 1400 Chemistry C-Reactive Prot, Quant (<1.0 mg/dL) > 9.0 H Hematology Lymphocytes (%) 1 % Normal PMNs (%) 93 ESR Westergren (0 - 10 MM) 71 H Other Body Source Fluid WBC (0 - 5 /CUMM) 69428 H Fld Mesothelial Cells (%) 6 Fld Total RBCs Counted (0 /CUMM) 3850 H Urines Sodium Urate Crystals (NONE) FEW NA UR CRYSTALS 10/28 10/27 0706 1230 Chemistry Sodium (137 - 145 mmol/L) 135 L Potassium (3.5 - 5.1 mmol/L) 4.5 Chloride (98 - 107 mmol/L) 105 Carbon Dioxide (22 - 30 mmol/L) 15 L Anion Gap (5 - 16) 15 BUN (9 - 20 mg/dL) 50 H Creatinine (0.7 - 1.2 mg/dL) 2.4 H Estimated GFR (>60 ml/min) 28 L BUN/Creatinine Ratio (7 - 25 %) 20.8 Troponin I (<0.11 ng/ml) 0.92 *H Hematology CBC w Diff NO MAN DIFF REQ MAN DIFF ORDERED WBC (4.8 - 10.8 /CUMM) 9.9 11.4 H RBC (4.70 - 6.10 /CUMM) 3.10 L 3.54 L Hgb (14.0 - 18.0 G/DL) 9.4 L 10.5 L Hct (42 - 52 %) 27.4 L 31.2 L MCV (80.0 - 94.0 FL) 88.3 88.3 MCH (27.0 - 31.0 PG) 30.2 29.6 RDW (11.5 - 14.5 %) 13.2 13.5 Plt Count (130 - 400 /CUMM) 167 163 MPV (7.4 - 10.4 FL) 8.5 8.3 Gran % (42.2 - 75.2 %) 73.2 84.5 H Lymphocytes % (20.5 - 51.1 %) 12.7 L 4.6 L Monocytes % (1.7 - 9.3 %) 12.7 H 9.3 Eosinophils % (0 - 5 %) 1.0 1.2 Basophils % (0.0 - 2.0 %) 0.4 0.4 Absolute Granulocytes (1.4 - 6.5 /CUMM) 7.2 H 9.7 H Segmented Neutrophils (42.2 - 75.2 %) 82 H Band Neutrophils (0.0 - 5.0 %) 5 Absolute Lymphocytes (1.2 - 3.4 /CUMM) 1.3 0.5 L Lymphocytes (20.5 - 51.1 %) 6 L Monocytes (1.7 - 9.3 %) 6 Absolute Monocytes (0.10 - 0.60 /CUMM) 1.3 H 1.1 H Eosinophils (0 - 5.0 %) 1 Absolute Eosinophils (0.0 - 0.7 /CUMM) 0.1 0.1 Absolute Basophils (0.0 - 0.2 /CUMM) 0 0 Platelet Estimate (ADEQUATE) VERIFIED BY SMEAR Polychromasia 1+ Poikilocytosis 1+ Ovalocytes 1+ PUBS MCHC (33.0 - 37.0 G/DL) 34.2 33.6 10/27 10/27 10/26 0420 0420 2300 Chemistry Sodium (137 - 145 mmol/L) 136 L Potassium (3.5 - 5.1 mmol/L) 4.0 Chloride (98 - 107 mmol/L) 105 Carbon Dioxide (22 - 30 mmol/L) 18 L Anion Gap (5 - 16) 13 BUN (9 - 20 mg/dL) 43 H Creatinine (0.7 - 1.2 mg/dL) 2.3 H Estimated GFR (>60 ml/min) 29 L BUN/Creatinine Ratio (7 - 25 %) 18.7 Phosphorus (2.5 - 4.5 mg/dL) 5.2 H Magnesium (1.6 - 2.3 mg/dL) 2.1 Troponin I (<0.11 ng/ml) 0.42 *H 0.41 *H Coagulation PT (9.4 - 12.5 SEC) 12.4 INR (0.90 - 1.17) 1.18 H Hematology CBC w Diff NO MAN DIFF REQ WBC (4.8 - 10.8 /CUMM) 10.9 H RBC (4.70 - 6.10 /CUMM) 3.37 L Hgb (14.0 - 18.0 G/DL) 9.9 L Hct (42 - 52 %) 29.5 L MCV (80.0 - 94.0 FL) 87.3 MCH (27.0 - 31.0 PG) 29.4 RDW (11.5 - 14.5 %) 12.6 Plt Count (130 - 400 /CUMM) 174 MPV (7.4 - 10.4 FL) 7.7 Gran % (42.2 - 75.2 %) 74.0 Lymphocytes % (20.5 - 51.1 %) 11.6 L Monocytes % (1.7 - 9.3 %) 10.3 H Eosinophils % (0 - 5 %) 3.6 Basophils % (0.0 - 2.0 %) 0.5 Absolute Granulocytes (1.4 - 6.5 /CUMM) 8.1 H Absolute Lymphocytes (1.2 - 3.4 /CUMM) 1.3 Absolute Monocytes (0.10 - 0.60 /CUMM) 1.1 H Absolute Eosinophils (0.0 - 0.7 /CUMM) 0.4 Absolute Basophils (0.0 - 0.2 /CUMM) 0.1 PUBS MCHC (33.0 - 37.0 G/DL) 33.7 Imaging/Other Studies: XAM TYPE: RAD - XRY-PORTABLE CHEST XRAY EXAMINATION: XR PORTABLE CHEST CLINICAL INFORMATION: Elevated troponins. COMPARISON: Chest x-ray of 10/25/2016, 10/24/2016 and 01/20/2008. TECHNIQUE: Portable frontal view of the chest was obtained. FINDINGS: The cardiomediastinal silhouette is unchanged. The lungs are mildly hypoexpanded. There is stable mild elevation of the right hemidiaphragm. There is mild bronchovascular crowding. Mild right basilar subsegmental atelectasis. No focal consolidation or significant pleural effusions. No evidence of overt changes of pulmonary edema. IMPRESSION: Hypoexpanded lungs. No evidence of pulmonary edema. Mild right basilar subsegmental atelectasis. Assessment/Plan Assessment/Recommendations Assessment: 1. MARY: ? prerenal ? post op nonoliguric ATN. Doubt topical NSAID playing role but if possible would d/c. Agree w trial volume expansion. No lower UT obstruction w Chand but w hx stone dx would exclude upper tract obstruction. No current renal replacement indication. 2. CKD: mod, stage 3B, due to presumed diabetic & HTN nephrosclerosis. 3. Met Acid: likely due to renal failure --> supplement bicarb po Recommendations: 1. renal US 2. no po or IV NSAIDs --> favor stopping topical Voltaren & salicylate 3. no IV contrast 4. hold chlothalidone 5. continue IV NS 6. Nabicarb 1300 mg bid po 7. repeat renal function
[2016-10-29 12:53] VITALS: BP 128/58
--- NOTE | 2016-10-29 16:04 | ULTRASOUND REPORT ---
EXAMINATION: US RETROPERITONEAL COMPLETE (RENAL) CLINICAL INFORMATION: Post obstructive uropathy, worsening renal function. COMPARISON: None TECHNIQUE: Real-time imaging of the kidneys and bladder. FINDINGS: Technically limited study due to patient's immobility related to recent surgery. RIGHT KIDNEY: 11.1 x 6.1 x 5.7 cm (SAG x AP x TRV). The kidney is normal in size, contour, and echogenicity. Renal cortical thickness is normal. No calculi or focal parenchymal lesions. No hydronephrosis. There is a 1.7 x 1.8 x 1.5 cm avascular hypoechogenicity present at mid to lower pole, most consistent with cortical renal cyst. LEFT KIDNEY: 11.4 x 6.4 x 5.8 cm (SAG x AP x TRV). The kidney is normal in size, contour, and echogenicity. Renal cortical thickness is normal. No calculi or focal parenchymal lesions. No hydronephrosis. BLADDER: Empty. Patient has a catheter. Bilateral ureteral jets are not demonstrated. IMPRESSION: Bilateral normal size kidneys with no sonographic evidence of urinary obstruction. Urinary bladder was not evaluated due to presence of Chand's catheter at the time of the examination.
[2016-10-29 16:21] VITALS: BP 118/60
--- NOTE | 2016-10-29 17:38 | PN- Orthopedic ---
Surgical Brief Attending Note Brief Attending Note: Day postop day #2 status post left total hip arthroplasty. Patient has been slow to mobilize. He continues to complain of pain in the left hip as well as other body parts. Eliezer Carrillo MD had told me about arthrocentesis of the knee over the weekend. The patient's seems to believe he is suffering from what gout. At this point his left hip is stable. The incisions clean dry and intact. The left lower extremity is neurovascularly intact. Plan would be for him to mobilize and begin weightbearing as tolerated on the left hip as soon as possible. I did explain to him the need for mobilization. Continue with anticoagulation per medicine.
--- NOTE | 2016-10-29 21:44 | Event Note ---
Event Note Event Note: SITUATION: * Unavailable lab results BRIEF: * CBC and BEP from 1600 and 1815 were not received in the lab * The lab confirmed that the only sample that was received at 1609 was a type and screen * The patient is currently getting a transfusion and thus any blood drawn at this time would have skewed results * The earliest the next CBC and BEP can be drawn will be 30 minutes after the transfusion has completed A/R: * Nursing staff have been notified and will obtain labs once transfusion is complete
[2016-10-29 23:17] LABS: ABSOLUTE BASOPHIL COUNT 0 /CUMM (0.0-0.2); ABSOLUTE EOSINOPHIL COUNT 0.3 /CUMM (0.0-0.7); ABSOLUTE GRANULOCYTE CT 6.6 /CUMM (1.4-6.5); ABSOLUTE MONOCYTE COUNT 1.1 /CUMM (0.10-0.60); BASOPHIL % 0.4 % (0.0-2.0); GRANULOCYTE % 72.4 % (42.2-75.2); HEMATOCRIT 22.5 % (42-52); MEAN CORPUSCULAR HGB 29.5 PG (27.0-31.0); MEAN CORPUSCULAR HGB CONC 34.2 G/DL (33.0-37.0); MEAN CORPUSCULAR VOLUME 86.3 FL (80.0-94.0); MEAN PLATELET VOLUME 7.9 FL (7.4-10.4); PLATELET COUNT 186 /CUMM (130-400); RBC DISTRIBUTION WIDTH 13.7 % (11.5-14.5); WHITE BLOOD CELL COUNT 9.1 /CUMM (4.8-10.8)
[2016-10-30 00:25] VITALS: BP 157/70
--- NOTE | 2016-10-30 07:11 | PN- Housestaff ---
TASH PATTERSON 10/30/16 0711: Subjective Follow-up For: L femoral neck fx w/ varus angulation s/p ORIF R knee effusion s/p aspiration of 30cc straw colored fluid Acute on chronic renal failure Anemia Hyponatremia Hypertensive urgency Elevated troponin Pain management Complaints: Pain with movement Subjective: Interval history: This morning Mr Putnam appears frustrated with the idea of limitations with ambulation that he will have to go through. He reports intermittent pain in his left hip management. He does report that the swelling and pain in his right knee have improved. He denies any fevers, chills, new onset chest pain, shortness of breath, palpitations, nausea or abdominal pain. Review of Systems Constitutional: Reports: see HPI. EENTM: Reports: no symptoms. Cardiovascular: Reports: no symptoms. Respiratory: Reports: no symptoms. Gastrointestinal: Reports: no symptoms. Musculoskeletal: Reports: see HPI. Neurological/Psychological: Reports: see HPI. Objective Last 24 Hrs of Vital Signs/I&O Vital Signs Date Time Temp Pulse Resp B/P B/P Pulse O2 O2 Flow FiO2 Mean Ox Delivery Rate 10/30 0800 98.6 80 24 160/70 94 Room Air 10/30 0025 99.5 78 20 157/70 92 10/29 2318 74 150/80 10/29 2318 74 150/80 10/29 2316 74 150/80 10/29 1742 73 118/60 10/29 1621 99.3 73 18 118/60 92 10/29 1256 98.8 89 20 128/58 10/29 1253 98.8 89 20 128/58 94 Room Air Room Air Intake & Output 10/30 1600 10/30 0800 10/30 0000 Intake Total 1100 600 Output Total 350 500 Balance 750 100 Intake, IV 1000 500 Intake, Oral 100 100 Output, Urine 350 500 Physical Exam General Appearance: Alert, Cooperative Skin: No Significant Lesion, lateral aspect of the left thigh appears swollen with no evidence of bruising at this time. Laverne of the incision sites are intact with no evidence of erythema or dehiscence HEENT: Mucous Membr. moist/pink Cardiovascular: Regular Rate, Normal S1, Normal S2 Lungs: Normal Air Movement, diminished breath sounds in the basilar regions bilaterally Abdomen: Normal Bowel Sounds, Soft, No Tenderness Extremities: 1+ pitting edema bilateral lower extremities, L>R with interval improvement over the past 24 hours Vascular: Pulses Symmetrical Current Medications: Current Medications Sig/Lynda Start time Last Medication Dose Route Stop Time Status Admin Acetaminophen 650 MG .STK-MED ONE 10/30 1955 DC PO 10/29 1956 Acetaminophen 1,000 MG Q6P PRN 10/28 0045 AC 10/30 IV 0700 Acetaminophen 650 MG Q6P PRN 10/28 0045 AC 10/28 PO 0129 Amlodipine Besylate 10 MG DAILY 10/28 1000 AC 10/30 PO 0836 Bisacodyl 5 MG DAILY 10/30 1000 AC 10/30 PO 0834 Bisacodyl 10 MG ONCE ONE 10/29 1630 DC 10/29 ME 10/29 1631 1741 Chlorthalidone 25 MG DAILY 10/28 1000 DC 10/29 PO 1102 Docusate Sodium 100 MG BID PRN 10/28 0045 AC 10/28 PO 0909 Ferrous Sulfate 325 MG TID 10/28 1000 AC 10/30 PO 0835 Hydralazine HCl 100 MG TID 10/28 1000 AC 10/30 PO 0833 Insulin Aspart 0 TIDAC 10/28 1200 AC 10/30 SC 0831 Isosorbide 60 MG DAILY 10/28 1000 AC 10/30 Mononitrate PO 0834 Labetalol HCl 300 MG BID 10/29 2200 DC PO Labetalol HCl 300 MG BID 10/29 1245 AC 10/30 PO 0837 Methyl Salicylate 1 RADHA Q6 10/28 1200 AC 10/30 TOP 0600 Morphine Sulfate 2 MG ONCE ONE 10/29 1200 DC 10/29 IV 10/29 1201 1209 Morphine Sulfate 4 MG Q4P PRN 10/29 1200 AC IV Morphine Sulfate 2 MG Q4P PRN 10/28 0045 DC 10/29 IV 1100 Oxycodone/ 2 TAB Q6P PRN 10/30 0945 AC Acetaminophen PO Prasugrel 10 MG DAILY 10/29 1200 AC 10/30 PO 0834 Prazosin HCl 2 MG BID 10/28 1000 AC 10/30 PO 0835 Senna/Docusate Sodium 1 TAB BID PRN 10/28 0045 AC 10/28 PO 0909 Sodium Bicarbonate 1,300 MG BID 10/29 1200 AC 10/30 PO 0836 Sodium Chloride 1,000 ML Q13H 10/28 2100 AC 10/30 IV 0200 Warfarin Sodium 5 MG COUMADIN 1700 ONE 10/29 1700 DC 10/29 PO 10/29 1701 1700 Last 24 Hrs of Lab/Wing Results Last 24 Hrs of Labs/Mics: Laboratory Tests 10/30/16 0733: Anion Gap 13, Estimated GFR 25 L, BUN/Creatinine Ratio 27.3 H, Phosphorus 5.8 H, Magnesium 2.3, Creatine Kinase 359 H, PT 12.7 H, INR 1.21 H, CBC w Diff NO MAN DIFF REQ, RBC 2.75 L, MCV 88.0, MCH 29.6, RDW 13.5, MPV 8.6, Gran % 74.9, Lymphocytes % 9.1 L, Monocytes % 12.8 H, Eosinophils % 2.7, Basophils % 0.5, Absolute Granulocytes 6.8 H, Absolute Lymphocytes 0.8 L, Absolute Monocytes 1.2 H, Absolute Eosinophils 0.2, Absolute Basophils 0, PUBS MCHC 33.7 10/29/16 2303: Anion Gap 13, Estimated GFR 23 L, BUN/Creatinine Ratio 24.3 10/29/16 2302: CBC w Diff NO MAN DIFF REQ, RBC 2.60 L, MCV 86.3, MCH 29.5, RDW 13.7, MPV 7.9, Gran % 72.4, Lymphocytes % 11.6 L, Monocytes % 12.6 H, Eosinophils % 3.0, Basophils % 0.4, Absolute Granulocytes 6.6 H, Absolute Lymphocytes 1.0 L, Absolute Monocytes 1.1 H, Absolute Eosinophils 0.3, Absolute Basophils 0, PUBS MCHC 34.2 10/29/16 2143: Anion Gap 10, Estimated GFR 23 L, BUN/Creatinine Ratio 25.0 10/29/16 1814: CBC w Diff Cancelled, WBC Cancelled, RBC Cancelled, Hgb Cancelled, Hct Cancelled , MCV Cancelled, MCH Cancelled, RDW Cancelled, Plt Count Cancelled, MPV Cancelled, PUBS MCHC Cancelled 10/29/16 1600: CBC w Diff Cancelled, WBC Cancelled, RBC Cancelled, Hgb Cancelled, Hct Cancelled , MCV Cancelled, MCH Cancelled, RDW Cancelled, Plt Count Cancelled, MPV Cancelled, PUBS MCHC Cancelled Assessment/Plan Assessment: Mr. Putnam is a 60-year-old gentleman with a PMH of HTN, type II DM, PVD, CAD s/p stent placement X7 () previously followed by his house carpenter helper Dr. Abdirizak Hendrix until he and now sees Dr. Sincere Carrington. Most recently resistant hypertension with medication adjustments since May 2016, a recent admission to [facility] on 09/07/2016 for hypertensive urgency, complicated with vitreous hemorrhage in the left eye that was attributed to heparin for DVT prophylaxis. Patient's railroad watchman Dr. Oscar Huang at [facility] has been involved with his antihypertensive medication adjustment: Increased labetalol dose, started on prazosin, increased Lasix to TID. His renal function had worsened secondary to starting azilsartan which has since been discontinued. For the vitreous hemorrhage she has been followed by his principal archaeologist Dr. Luis F Hayes which was managed with Avastin injection with follow-up plans for photocoagulation. He presented to [place] on 10/24/2016 after suffering a mechanical fall tripping over a piece of plywood landing on his left hip, denied any preceding headache, dizziness, blurred vision or associated LOC. Due to significant pain he was unable to ambulate independently for an extended period of time. Problem list: 1. Left femoral neck fracture with varus angulation s/p ORIF (10/27/2016) 2. R knee effusion s/p aspiration of 30cc straw colored fluid 3. Acute on chronic renal failure 4. Acute blood loss Anemia 5. Hyponatremia 6. Hypertensive urgency 7. Elevated troponins 8. CAD with history of stent placement 9. Elevated creatinine kinase 10. Diabetes 11. History of Vitreous hemorrhage Plan: 1. Left femoral neck fracture with varus angulation * Postop day #3 for left hip ORIF. Per surgery recommendations the site appears stable and swelling on the lateral aspect is likely secondary to an underlying hematoma. No plan to image the area at this time due to no evidence of expansion/active bleeding from the site. We'll continue to monitor * Pain management with morphine and Percocet * Weight bearing as tolerated * Continue with senna and Colace when necessary for titration of 1-2 BMs per 24 hours * Will dose Coumadin 5 mg again today with target INR between 2 and 3 2. R knee effusion s/p aspiration of 30cc straw colored fluid * Stable at this time * Fluid analysis negative for uric acid crystals * 10,670 WBCs, 2850 RBCs * Culture and Gram stain negative thus far * Pain management and leg elevation for support 3. Acute on chronic renal failure * Interval improvement in acute on chronic renal insufficiency * BUN/CR 71/2.6. Continue with fluid hydration normal saline at 75 mL an hour * Appreciate nephrology recommendations * Fe 13L, TIBC 247L, 5 saturation 5L, ferritin 230.0. Continue ferrous sulfate TID 4. Acute blood loss Anemia * Status post 1 unit PRBC transfusion on 10/29/2016 * H&H: 8.1/24.2. Will transfuse to maintain hematocrit above 24 5. Hyponatremia * Interval improvement in hyponatremia: 130 up from 127. Continue with normal saline at 75 mL 6. Hypertensive urgency * Blood pressure has been well controlled on his current regimen * Continue with labetalol 300 mg BID, hydralazine 100 mg TID, amlodipine 10 mg, prazosin 2 mg BID * Chlorthalidone 25 mg has been discontinued in the setting of acute on chronic renal insufficiency 7. Elevated troponins with history of CAD s/p stenting * Stable at this time. Will maintain hematocrit above 24 with extensive history of CAD 8. Elevated creatinine kinase * Slight increase in CK up to 373 with noticeable improvement on fluid hydration. Encourage ambulation as tolerated and continue with IV fluids over the next 24 hours 10. Diabetes * Accu-Cheks of the past 24 hours between 166 and 235 * We'll increase to medium dose sliding scale from low-dose 11. History of Vitreous hemorrhage * Stable at this time Diet: Consistent carbohydrate 3 DVT prophylaxis: On Coumadin CODE STATUS: Full code Problem List: 1. Left displaced femoral neck fracture 2. S/P ORIF (open reduction internal fixation) fracture 3. Effusion, right knee 4. Acute on chronic renal failure 5. Hyponatremia 6. Blood loss anemia 7. Diabetes 8. Elevated creatine kinase 9. Hypertensive urgency 10. Vitreous hemorrhage, left eye Pain Ratin Pain Location: Left hip Pain Goal: Pain 4 or less Pain Plan: Percocert 2 tabs Morphine Tomorrow's Labs & Rationales: CBC: Trending anemia of blood loss BEP: Trending acute on chronic renal failure INR: On Coumadin DVT/Prophylaxis: pharmacological Discharge Plan Discharge Disposition: STR/NH Stable for Discharge? No Anticipated Discharge (Day): tomorrow DIANA JONAS MD 10/30/16 1042: Attending MD Review Statement Attending Statement Attending MD Statement: examined this patient, discuss w/resident/PA/PEGGER DOBBY LOOMS, agreed w/resident/PA/PEGGER DOBBY LOOMS, reviewed EMR data (avail), discussed with nursing, discussed with case mgmt, reviewed images, amended to note Attending Assessment/Plan: Patient seen and examined, not feeling too good. He is uncomfortable with the ALPS that he has on. BP improving, Cr improving and H&H remain stable. Vital Signs Date Time Temp Pulse Resp B/P B/P Pulse O2 O2 Flow FiO2 Mean Ox Delivery Rate 10/30 0800 98.6 80 24 160/70 94 Room Air 10/30 0025 99.5 78 20 157/70 92 10/29 2318 74 150/80 10/29 2318 74 150/80 10/29 2316 74 150/80 10/29 1742 73 118/60 10/29 1621 99.3 73 18 118/60 92 10/29 1256 98.8 89 20 128/58 10/29 1253 98.8 89 20 128/58 94 Room Air Room Air 10/29 1104 99.3 84 152/72 10/29 1104 99.3 84 20 152/72 10/29 1103 99.3 84 20 152/72 10/29 1103 99.3 84 20 152/72 10/29 1100 Room Air 3.0L 10/29 1055 Room Air 3.0L on exam; aox3, nad. cv; s1,s2, rrr resp; clear abd; soft, nt, bs+ ext; trace edema on lle. Laboratory Tests 10/30 10/29 0733 2303 Chemistry Sodium (137 - 145 mmol/L) 130 L 128 L Potassium (3.5 - 5.1 mmol/L) 4.5 4.3 Chloride (98 - 107 mmol/L) 103 101 Carbon Dioxide (22 - 30 mmol/L) 15 L 15 L Anion Gap (5 - 16) 13 13 BUN (9 - 20 mg/dL) 71 H 68 H Creatinine (0.7 - 1.2 mg/dL) 2.6 H 2.8 H Estimated GFR (>60 ml/min) 25 L 23 L BUN/Creatinine Ratio (7 - 25 %) 27.3 H 24.3 Phosphorus (2.5 - 4.5 mg/dL) 5.8 H Magnesium (1.6 - 2.3 mg/dL) 2.3 Creatine Kinase (55 - 170 U/L) 359 H Coagulation PT (9.4 - 12.5 SEC) 12.7 H INR (0.90 - 1.17) 1.21 H Hematology CBC w Diff NO MAN DIFF REQ WBC (4.8 - 10.8 /CUMM) 9.1 RBC (4.70 - 6.10 /CUMM) 2.75 L Hgb (14.0 - 18.0 G/DL) 8.1 L Hct (42 - 52 %) 24.2 L MCV (80.0 - 94.0 FL) 88.0 MCH (27.0 - 31.0 PG) 29.6 RDW (11.5 - 14.5 %) 13.5 Plt Count (130 - 400 /CUMM) 202 MPV (7.4 - 10.4 FL) 8.6 Gran % (42.2 - 75.2 %) 74.9 Lymphocytes % (20.5 - 51.1 %) 9.1 L Monocytes % (1.7 - 9.3 %) 12.8 H Eosinophils % (0 - 5 %) 2.7 Basophils % (0.0 - 2.0 %) 0.5 Absolute Granulocytes (1.4 - 6.5 /CUMM) 6.8 H Absolute Lymphocytes (1.2 - 3.4 /CUMM) 0.8 L Absolute Monocytes (0.10 - 0.60 /CUMM) 1.2 H Absolute Eosinophils (0.0 - 0.7 /CUMM) 0.2 Absolute Basophils (0.0 - 0.2 /CUMM) 0 PUBS MCHC (33.0 - 37.0 G/DL) 33.7 10/29 10/29 10/29 2302 2143 1814 Chemistry Sodium (137 - 145 mmol/L) 127 L Potassium (3.5 - 5.1 mmol/L) 4.3 Chloride (98 - 107 mmol/L) 101 Carbon Dioxide (22 - 30 mmol/L) 16 L Anion Gap (5 - 16) 10 BUN (9 - 20 mg/dL) 70 H Creatinine (0.7 - 1.2 mg/dL) 2.8 H Estimated GFR (>60 ml/min) 23 L BUN/Creatinine Ratio (7 - 25 %) 25.0 Hematology CBC w Diff NO MAN DIFF REQ Cancelled WBC (4.8 - 10.8 /CUMM) 9.1 Cancelled RBC (4.70 - 6.10 /CUMM) 2.60 L Cancelled Hgb (14.0 - 18.0 G/DL) 7.7 L Cancelled Hct (42 - 52 %) 22.5 L Cancelled MCV (80.0 - 94.0 FL) 86.3 Cancelled MCH (27.0 - 31.0 PG) 29.5 Cancelled RDW (11.5 - 14.5 %) 13.7 Cancelled Plt Count (130 - 400 /CUMM) 186 Cancelled MPV (7.4 - 10.4 FL) 7.9 Cancelled Gran % (42.2 - 75.2 %) 72.4 Lymphocytes % (20.5 - 51.1 %) 11.6 L Monocytes % (1.7 - 9.3 %) 12.6 H Eosinophils % (0 - 5 %) 3.0 Basophils % (0.0 - 2.0 %) 0.4 Absolute Granulocytes (1.4 - 6.5 /CUMM) 6.6 H Absolute Lymphocytes (1.2 - 3.4 /CUMM) 1.0 L Absolute Monocytes (0.10 - 0.60 /CUMM) 1.1 H Absolute Eosinophils (0.0 - 0.7 /CUMM) 0.3 Absolute Basophils (0.0 - 0.2 /CUMM) 0 PUBS MCHC (33.0 - 37.0 G/DL) 34.2 Cancelled 10/29 10/29 10/29 1600 1053 1053 Hematology CBC w Diff Cancelled WBC Cancelled RBC Cancelled Hgb Cancelled Hct Cancelled MCV Cancelled MCH Cancelled RDW Cancelled Plt Count Cancelled MPV Cancelled PUBS MCHC Cancelled Urines Urinalysis LIGHT H Urine Color (YEL,AMB,STR) YEL Urine Clarity (CLEAR) CLEAR Urine pH (5.0 - 8.0) 6.0 Ur Specific [place] (1.001 - 1.035) 1.020 Urine Protein (NEG,<30 MG/DL) 100 H Urine Ketones (NEG) NEG Urine Nitrite (NEG) NEG Urine Bilirubin (NEG) NEG Urine Urobilinogen (0.1 - 1.0 EU/dl) 0.2 Ur Leukocyte Esterase (NEG) NEG Ur Microscopic SEDIMENT EXAMINED Urine RBC (0 - 5 /HPF) 5-10 H Ur Epithelial Cells (NONE,FEW) FEW Urine Bacteria (NEG/NONE) FEW H Urine Hemoglobin (NEG) SMALL H Urine Osmolality (300 - 1000 MOSM/KG) 421 Ur Random Creatinine (mg/dL) 87.4 Ur Random Sodium (30 - 90 mmol/L) 35 Ur Random Potassium (mmol/L) 30.5 Fraction Sodium Excret (<1% %) 0.9 Urine Glucose (N MG/DL) NEG A/P; 60 M with pmh sig for HTN, type II DM, PVD, CAD s/p stent placement X7, labile hypertension with med adjustments being made by patient's house carpenter helper and railroad watchman, recent vitreous hemorrhage under the care of principal archaeologist received Avsatin injections, admitted with a mechanical fall and sustained a left femoral neck fracture with varus angulation at the fracture site s/p left KRISTIN POD #2. Pt had also developed acute blood loss anemia 2/2 to post op blood loss. Ac/ch renal failure. Has been started on IVfs, Cr improving. Recieved RBC transfusion and H&H improved, Gauic stool was neg. Will continue gentle IV hydration. We will continue to monitor H&H, creatinine. We'll switch pain medications to oral Percocet for disposition planning. Postop care per orthopedic. Blood pressure is better on current regimen. His feet and was resumed and he was started on Coumadin. We will dose Coumadin at 5 mg today and check INR in the morning. Patient will need to go to rehabilitation possibly tomorrow.
--- NOTE | 2016-10-30 07:29 | PN- Orthopedic ---
Subjective Subjective: Moderate complaints of left hip pain. Pain medication is helping. He has been up and ambulatory with therapy. Objective Vital Signs and I&Os Vital Signs Date Time Temp Pulse Resp B/P B/P Pulse O2 O2 Flow FiO2 Mean Ox Delivery Rate 10/30 0025 99.5 78 20 157/70 92 10/29 2318 74 150/80 10/29 2318 74 150/80 10/29 2316 74 150/80 10/29 1742 73 118/60 10/29 1621 99.3 73 18 118/60 92 10/29 1256 98.8 89 20 128/58 10/29 1253 98.8 89 20 128/58 94 Room Air Room Air 10/29 1104 99.3 84 152/72 10/29 1104 99.3 84 20 152/72 10/29 1103 99.3 84 20 152/72 10/29 1103 99.3 84 20 152/72 10/29 1100 Room Air 3.0L 10/29 1055 Room Air 3.0L 10/29 0842 99.3 84 20 15272 93 Room Air Intake & Output 10/30 0800 10/30 0000 10/29 1600 10/29 0800 10/29 0000 10/28 1600 Intake Total 600 1480 1150 800 Output Total 350 500 300 350 150 350 Balance -410 557 1566 800 650 -350 Intake, IV 500 1000 900 600 Intake, Oral 100 480 250 200 Number 0 Bowel Movements Output, Urine 350 500 300 350 150 350 Patient 207 lb Weight Physical Exam: Well-developed well-nourished no apparent distress. HEENT: Atraumatic, Neck: Supple, no lymphadenopathy Respiratory: No respiratory distress Extremities: No edema left lower extremity hip dressing in place, Dressing clean dry and intact with minimal bloody staining Incision without erythema Moderate thigh swelling suggestive of hematoma. No signs of infection. Abduction pillow in place No shortening or rotation Hip range of motion is limited and without unexpected pain Neurovascularly intact distally, perennial function intact Bilateral calves are supple, nontender. Neuro: Alert and oriented x3 Psych: Mood affect normal, normal memory normal judgment. Skin: Warm and dry, no rash on exposed skin Results Last 48 Hours of Labs: Laboratory Tests 10/29 10/29 10/29 2303 2302 2143 Chemistry Sodium (137 - 145 mmol/L) 128 L 127 L Potassium (3.5 - 5.1 mmol/L) 4.3 4.3 Chloride (98 - 107 mmol/L) 101 101 Carbon Dioxide (22 - 30 mmol/L) 15 L 16 L Anion Gap (5 - 16) 13 10 BUN (9 - 20 mg/dL) 68 H 70 H Creatinine (0.7 - 1.2 mg/dL) 2.8 H 2.8 H Estimated GFR (>60 ml/min) 23 L 23 L BUN/Creatinine Ratio (7 - 25 %) 24.3 25.0 Hematology CBC w Diff NO MAN DIFF REQ WBC (4.8 - 10.8 /CUMM) 9.1 RBC (4.70 - 6.10 /CUMM) 2.60 L Hgb (14.0 - 18.0 G/DL) 7.7 L Hct (42 - 52 %) 22.5 L MCV (80.0 - 94.0 FL) 86.3 MCH (27.0 - 31.0 PG) 29.5 RDW (11.5 - 14.5 %) 13.7 Plt Count (130 - 400 /CUMM) 186 MPV (7.4 - 10.4 FL) 7.9 Gran % (42.2 - 75.2 %) 72.4 Lymphocytes % (20.5 - 51.1 %) 11.6 L Monocytes % (1.7 - 9.3 %) 12.6 H Eosinophils % (0 - 5 %) 3.0 Basophils % (0.0 - 2.0 %) 0.4 Absolute Granulocytes (1.4 - 6.5 /CUMM) 6.6 H Absolute Lymphocytes (1.2 - 3.4 /CUMM) 1.0 L Absolute Monocytes (0.10 - 0.60 /CUMM) 1.1 H Absolute Eosinophils (0.0 - 0.7 /CUMM) 0.3 Absolute Basophils (0.0 - 0.2 /CUMM) 0 PUBS MCHC (33.0 - 37.0 G/DL) 34.2 10/29 10/29 1814 1600 Hematology CBC w Diff Cancelled Cancelled WBC Cancelled Cancelled RBC Cancelled Cancelled Hgb Cancelled Cancelled Hct Cancelled Cancelled MCV Cancelled Cancelled MCH Cancelled Cancelled RDW Cancelled Cancelled Plt Count Cancelled Cancelled MPV Cancelled Cancelled PUBS MCHC Cancelled Cancelled 10/29 10/29 1053 1053 Urines Urinalysis LIGHT H Urine Color (YEL,AMB,STR) YEL Urine Clarity (CLEAR) CLEAR Urine pH (5.0 - 8.0) 6.0 Ur Specific [place] (1.001 - 1.035) 1.020 Urine Protein (NEG,<30 MG/DL) 100 H Urine Ketones (NEG) NEG Urine Nitrite (NEG) NEG Urine Bilirubin (NEG) NEG Urine Urobilinogen (0.1 - 1.0 EU/dl) 0.2 Ur Leukocyte Esterase (NEG) NEG Ur Microscopic SEDIMENT EXAMINED Urine RBC (0 - 5 /HPF) 5-10 H Ur Epithelial Cells (NONE,FEW) FEW Urine Bacteria (NEG/NONE) FEW H Urine Hemoglobin (NEG) SMALL H Urine Osmolality (300 - 1000 MOSM/KG) 421 Ur Random Creatinine (mg/dL) 87.4 Ur Random Sodium (30 - 90 mmol/L) 35 Ur Random Potassium (mmol/L) 30.5 Fraction Sodium Excret (<1% %) 0.9 Urine Glucose (N MG/DL) NEG 10/29 10/28 0622 1720 Chemistry Sodium (137 - 145 mmol/L) 130 L Potassium (3.5 - 5.1 mmol/L) 4.2 Chloride (98 - 107 mmol/L) 101 Carbon Dioxide (22 - 30 mmol/L) 16 L Anion Gap (5 - 16) 13 BUN (9 - 20 mg/dL) 61 H Creatinine (0.7 - 1.2 mg/dL) 3.0 H Estimated GFR (>60 ml/min) 21 L BUN/Creatinine Ratio (7 - 25 %) 20.3 Serum Osmolality (285 - 295 MOSM/KG) 291 Uric Acid (3.5 - 8.5 mg/dL) 10.9 H Creatine Kinase (55 - 170 U/L) 373 H Troponin I (<0.11 ng/ml) 0.68 *H Hematology CBC w Diff NO MAN DIFF REQ WBC (4.8 - 10.8 /CUMM) 8.7 RBC (4.70 - 6.10 /CUMM) 2.69 L Hgb (14.0 - 18.0 G/DL) 8.0 L Hct (42 - 52 %) 23.5 L MCV (80.0 - 94.0 FL) 87.3 MCH (27.0 - 31.0 PG) 29.8 RDW (11.5 - 14.5 %) 13.2 Plt Count (130 - 400 /CUMM) 170 MPV (7.4 - 10.4 FL) 8.5 Gran % (42.2 - 75.2 %) 72.4 Lymphocytes % (20.5 - 51.1 %) 11.9 L Monocytes % (1.7 - 9.3 %) 12.4 H Eosinophils % (0 - 5 %) 2.8 Basophils % (0.0 - 2.0 %) 0.5 Absolute Granulocytes (1.4 - 6.5 /CUMM) 6.3 Absolute Lymphocytes (1.2 - 3.4 /CUMM) 1.0 L Absolute Monocytes (0.10 - 0.60 /CUMM) 1.1 H Absolute Eosinophils (0.0 - 0.7 /CUMM) 0.2 Absolute Basophils (0.0 - 0.2 /CUMM) 0 PUBS MCHC (33.0 - 37.0 G/DL) 34.1 10/28 10/28 1525 1400 Chemistry C-Reactive Prot, Quant (<1.0 mg/dL) > 9.0 H Hematology Lymphocytes (%) 1 % Normal PMNs (%) 93 ESR [place] (0 - 10 MM) 71 H Other Body Source Fluid WBC (0 - 5 /CUMM) 31086 H Fld Mesothelial Cells (%) 6 Fld Total RBCs Counted (0 /CUMM) 3850 H Urines Sodium Urate Crystals (NONE) FEW NA UR CRYSTALS Assessment/Plan Assessment/Plan Postop day 3 status post left total hip arthroplasty Progressing as expected orthopedically, weightbearing as tolerated. Continue PT Acute blood loss anemia, likely secondary to postoperative blood loss and hematoma. Would not recommend CT scan of the thigh at this time, transfuse as needed per medicine. Continue anticoagulation with Coumadin for 6 weeks postoperative, goal of INR is between 2 and 3 Follow-up with orthopedic surgeon in 10-14 days postoperatively. Please call with any concerns. Core Measures/Miscellaneous Venous Thromboembolism VTE Risk Factors: Age > 40 VTE Contraindications: No Contraindications VTE Diagnosis: No VTE Type: NONE VTE Confirmed by (Test): NONE Beta Timothy Is Beta Timothy a Home Med? No Antibiotics Is Patient on Antibiotics? Yes If Yes: prophylaxis
[2016-10-30 08:00] VITALS: BP 160/70
[2016-10-30 08:46] LABS: PT 12.7 SEC (9.4-12.5)
[2016-10-30 08:57] LABS: ABSOLUTE BASOPHIL COUNT 0 /CUMM (0.0-0.2); ABSOLUTE EOSINOPHIL COUNT 0.2 /CUMM (0.0-0.7); ABSOLUTE GRANULOCYTE CT 6.8 /CUMM (1.4-6.5); ABSOLUTE LYMPH COUNT 0.8 /CUMM (1.2-3.4); ABSOLUTE MONOCYTE COUNT 1.2 /CUMM (0.10-0.60); BASOPHIL % 0.5 % (0.0-2.0); EOSINOPHIL % 2.7 % (0-5); GRANULOCYTE % 74.9 % (42.2-75.2); HEMATOCRIT 24.2 % (42-52); MEAN CORPUSCULAR HGB 29.6 PG (27.0-31.0); MEAN CORPUSCULAR HGB CONC 33.7 G/DL (33.0-37.0); MEAN PLATELET VOLUME 8.6 FL (7.4-10.4); PLATELET COUNT 202 /CUMM (130-400); RBC DISTRIBUTION WIDTH 13.5 % (11.5-14.5); RED BLOOD CELL CT 2.75 /CUMM (4.70-6.10); WHITE BLOOD CELL COUNT 9.1 /CUMM (4.8-10.8)
--- NOTE | 2016-10-30 09:00 | PN- Nephrology ---
Assessment/Plan Assessment: 1. MARY: prob nonoliguric ATN; stable 2. 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 Met acid: continue po bicarb Suggestion: 1. lower IV NS 75 ml/hr 2. recheck labs in AM Subjective Subjective: No CP or SOB No uremic sx Transfusion last night noted Remains nonoliguric Objective Vital Signs and I&Os Vital Signs Date Time Temp Pulse Resp B/P B/P Pulse O2 O2 Flow FiO2 Mean Ox Delivery Rate 10/30 0800 98.6 80 24 160/70 94 Room Air 10/30 0025 99.5 78 20 157/70 92 10/29 2318 74 150/80 10/29 2318 74 150/80 05 2316 74 150/80 10/29 1742 73 118/60 10/29 1621 99.3 73 18 118/60 92 10/29 1256 98.8 89 20 128/58 10/29 1253 98.8 89 20 128/58 94 Room Air Room Air 10/29 1104 99.3 84 152/72 10/29 1104 99.3 84 20 152/72 10/29 1103 99.3 84 20 152/72 10/29 1103 99.3 84 20 152/72 10/29 1100 Room Air 3.0L 10/29 1055 Room Air 3.0L Intake & Output 10/30 1600 10/30 0400 10/29 1600 10/29 0400 10/28 1600 10/28 0400 Intake Total 600 2630 800 70 450 Output Total 350 500 452 683 4505 Balance -573 137 1488 650 -1380 450 Intake, IV 500 1900 600 20 Intake, Oral 100 730 200 50 450 Number 0 0 Bowel Movements Output, Urine 350 500 019 178 7844 Patient 207 lb Weight Physical Exam General Appearance: no apparent distress, alert Head: atraumatic Ears, Nose, Throat: normal ENT inspection Neck: normal inspection Respiratory: quiet respiration, lungs clear Cardiovascular: regular rate/rhythm Abdomen: soft, non-tender Extremities: no edema Neurologic/Psychiatric: awake, alert Current Medications: Current Medications Sig/Lynda Start time Last Medication Dose Route Stop Time Status Admin Acetaminophen 650 MG .STK-MED ONE 10/30 1955 DC PO 10/29 1956 Acetaminophen 1,000 MG Q6P PRN 10/285 AC 10/30 IV 0700 Acetaminophen 650 MG Q6P PRN 10/28 0045 AC 10/28 PO 0129 Amlodipine Besylate 10 MG DAILY 10/28 1000 AC 10/30 PO 0836 Bisacodyl 5 MG DAILY 10/30 1000 AC 10/30 PO 0834 Bisacodyl 10 MG ONCE ONE 10/29 1630 DC 10/29 AL 10/29 1631 1741 Chlorthalidone 25 MG DAILY 10/28 1000 DC 10/29 PO 1102 Docusate Sodium 100 MG BID PRN 10/28 0045 AC 10/28 PO 0909 Ferrous Sulfate 325 MG TID 10/28 1000 AC 10/30 PO 0835 Hydralazine HCl 100 MG TID 10/28 1000 AC 10/30 PO 0833 Insulin Aspart 0 TIDAC 10/28 1200 AC 10/30 SC 0831 Isosorbide 60 MG DAILY 10/28 1000 AC 10/30 Mononitrate PO 0834 Labetalol HCl 300 MG BID 10/29 2200 DC PO Labetalol HCl 300 MG BID 10/29 1245 AC 10/30 PO 0837 Labetalol HCl 300 MG BID 10/28 1000 DC 10/28 PO 2202 Methyl Salicylate 1 RADHA Q6 10/28 1200 AC 10/30 TOP 0600 Morphine Sulfate 2 MG ONCE ONE 10/29 1200 DC 10/29 IV 10/29 1201 1209 Morphine Sulfate 4 MG Q4P PRN 10/29 1200 AC IV Morphine Sulfate 2 MG Q4P PRN 10/28 0045 DC 10/29 IV 1100 Prasugrel 10 MG DAILY 10/29 1200 AC 10/30 PO 0834 Prazosin HCl 2 MG BID 10/28 1000 AC 10/30 PO 0835 Senna/Docusate Sodium 1 TAB BID PRN 10/28 0045 AC 10/28 PO 0909 Sodium Bicarbonate 1,300 MG BID 10/29 1200 AC 10/30 PO 0836 Sodium Chloride 1,000 ML Q13H 10/28 2100 AC 10/30 IV 0200 Warfarin Sodium 5 MG COUMADIN 1700 ONE 10/29 1700 DC 10/29 PO 10/29 1701 1700 Results Pertinent Lab Results: Laboratory Tests 10/30 10/29 10/29 0733 2303 2302 Chemistry Sodium (137 - 145 mmol/L) 130 L 128 L Potassium (3.5 - 5.1 mmol/L) 4.5 4.3 Chloride (98 - 107 mmol/L) 103 101 Carbon Dioxide (22 - 30 mmol/L) 15 L 15 L Anion Gap (5 - 16) 13 13 BUN (9 - 20 mg/dL) 71 H 68 H Creatinine (0.7 - 1.2 mg/dL) 2.6 H 2.8 H Estimated GFR (>60 ml/min) 25 L 23 L BUN/Creatinine Ratio (7 - 25 %) 27.3 H 24.3 Phosphorus (2.5 - 4.5 mg/dL) 5.8 H Magnesium (1.6 - 2.3 mg/dL) 2.3 Creatine Kinase (55 - 170 U/L) 359 H Coagulation PT Pending INR Pending Hematology CBC w Diff Pending NO MAN DIFF REQ WBC (4.8 - 10.8 /CUMM) Pending 9.1 RBC (4.70 - 6.10 /CUMM) Pending 2.60 L Hgb (14.0 - 18.0 G/DL) Pending 7.7 L Hct (42 - 52 %) Pending 22.5 L MCV (80.0 - 94.0 FL) Pending 86.3 MCH (27.0 - 31.0 PG) Pending 29.5 RDW (11.5 - 14.5 %) Pending 13.7 Plt Count (130 - 400 /CUMM) Pending 186 MPV (7.4 - 10.4 FL) Pending 7.9 Gran % (42.2 - 75.2 %) 72.4 Lymphocytes % (20.5 - 51.1 %) 11.6 L Monocytes % (1.7 - 9.3 %) 12.6 H Eosinophils % (0 - 5 %) 3.0 Basophils % (0.0 - 2.0 %) 0.4 Absolute Granulocytes (1.4 - 6.5 /CUMM) 6.6 H Absolute Lymphocytes (1.2 - 3.4 /CUMM) 1.0 L Absolute Monocytes (0.10 - 0.60 /CUMM) 1.1 H Absolute Eosinophils (0.0 - 0.7 /CUMM) 0.3 Absolute Basophils (0.0 - 0.2 /CUMM) 0 PUBS MCHC (33.0 - 37.0 G/DL) Pending 34.2 10/29 10/29 10/29 2143 1814 1600 Chemistry Sodium (137 - 145 mmol/L) 127 L Potassium (3.5 - 5.1 mmol/L) 4.3 Chloride (98 - 107 mmol/L) 101 Carbon Dioxide (22 - 30 mmol/L) 16 L Anion Gap (5 - 16) 10 BUN (9 - 20 mg/dL) 70 H Creatinine (0.7 - 1.2 mg/dL) 2.8 H Estimated GFR (>60 ml/min) 23 L BUN/Creatinine Ratio (7 - 25 %) 25.0 Hematology CBC w Diff Cancelled Cancelled WBC Cancelled Cancelled RBC Cancelled Cancelled Hgb Cancelled Cancelled Hct Cancelled Cancelled MCV Cancelled Cancelled MCH Cancelled Cancelled RDW Cancelled Cancelled Plt Count Cancelled Cancelled MPV Cancelled Cancelled PUBS MCHC Cancelled Cancelled 10/29 10/29 1053 1053 Urines Urinalysis LIGHT H Urine Color (YEL,AMB,STR) YEL Urine Clarity (CLEAR) CLEAR Urine pH (5.0 - 8.0) 6.0 Ur Specific [place] (1.001 - 1.035) 1.020 Urine Protein (NEG,<30 MG/DL) 100 H Urine Ketones (NEG) NEG Urine Nitrite (NEG) NEG Urine Bilirubin (NEG) NEG Urine Urobilinogen (0.1 - 1.0 EU/dl) 0.2 Ur Leukocyte Esterase (NEG) NEG Ur Microscopic SEDIMENT EXAMINED Urine RBC (0 - 5 /HPF) 5-10 H Ur Epithelial Cells (NONE,FEW) FEW Urine Bacteria (NEG/NONE) FEW H Urine Hemoglobin (NEG) SMALL H Urine Osmolality (300 - 1000 MOSM/KG) 421 Ur Random Creatinine (mg/dL) 87.4 Ur Random Sodium (30 - 90 mmol/L) 35 Ur Random Potassium (mmol/L) 30.5 Fraction Sodium Excret (<1% %) 0.9 Urine Glucose (N MG/DL) NEG 10/29 10/28 0622 1720 Chemistry Sodium (137 - 145 mmol/L) 130 L Potassium (3.5 - 5.1 mmol/L) 4.2 Chloride (98 - 107 mmol/L) 101 Carbon Dioxide (22 - 30 mmol/L) 16 L Anion Gap (5 - 16) 13 BUN (9 - 20 mg/dL) 61 H Creatinine (0.7 - 1.2 mg/dL) 3.0 H Estimated GFR (>60 ml/min) 21 L BUN/Creatinine Ratio (7 - 25 %) 20.3 Serum Osmolality (285 - 295 MOSM/KG) 291 Uric Acid (3.5 - 8.5 mg/dL) 10.9 H Creatine Kinase (55 - 170 U/L) 373 H Troponin I (<0.11 ng/ml) 0.68 *H Hematology CBC w Diff NO MAN DIFF REQ WBC (4.8 - 10.8 /CUMM) 8.7 RBC (4.70 - 6.10 /CUMM) 2.69 L Hgb (14.0 - 18.0 G/DL) 8.0 L Hct (42 - 52 %) 23.5 L MCV (80.0 - 94.0 FL) 87.3 MCH (27.0 - 31.0 PG) 29.8 RDW (11.5 - 14.5 %) 13.2 Plt Count (130 - 400 /CUMM) 170 MPV (7.4 - 10.4 FL) 8.5 Gran % (42.2 - 75.2 %) 72.4 Lymphocytes % (20.5 - 51.1 %) 11.9 L Monocytes % (1.7 - 9.3 %) 12.4 H Eosinophils % (0 - 5 %) 2.8 Basophils % (0.0 - 2.0 %) 0.5 Absolute Granulocytes (1.4 - 6.5 /CUMM) 6.3 Absolute Lymphocytes (1.2 - 3.4 /CUMM) 1.0 L Absolute Monocytes (0.10 - 0.60 /CUMM) 1.1 H Absolute Eosinophils (0.0 - 0.7 /CUMM) 0.2 Absolute Basophils (0.0 - 0.2 /CUMM) 0 PUBS MCHC (33.0 - 37.0 G/DL) 34.1 10/28 10/28 1525 1400 Chemistry C-Reactive Prot, Quant (<1.0 mg/dL) > 9.0 H Hematology Lymphocytes (%) 1 % Normal PMNs (%) 93 ESR Westergren (0 - 10 MM) 71 H Other Body Source Fluid WBC (0 - 5 /CUMM) 27903 H Fld Mesothelial Cells (%) 6 Fld Total RBCs Counted (0 /CUMM) 3850 H Urines Sodium Urate Crystals (NONE) FEW NA UR CRYSTALS 10/28 10/27 0706 1230 Chemistry Sodium (137 - 145 mmol/L) 135 L Potassium (3.5 - 5.1 mmol/L) 4.5 Chloride (98 - 107 mmol/L) 105 Carbon Dioxide (22 - 30 mmol/L) 15 L Anion Gap (5 - 16) 15 BUN (9 - 20 mg/dL) 50 H Creatinine (0.7 - 1.2 mg/dL) 2.4 H Estimated GFR (>60 ml/min) 28 L BUN/Creatinine Ratio (7 - 25 %) 20.8 Troponin I (<0.11 ng/ml) 0.92 *H Hematology CBC w Diff NO MAN DIFF REQ MAN DIFF ORDERED WBC (4.8 - 10.8 /CUMM) 9.9 11.4 H RBC (4.70 - 6.10 /CUMM) 3.10 L 3.54 L Hgb (14.0 - 18.0 G/DL) 9.4 L 10.5 L Hct (42 - 52 %) 27.4 L 31.2 L MCV (80.0 - 94.0 FL) 88.3 88.3 MCH (27.0 - 31.0 PG) 30.2 29.6 RDW (11.5 - 14.5 %) 13.2 13.5 Plt Count (130 - 400 /CUMM) 167 163 MPV (7.4 - 10.4 FL) 8.5 8.3 Gran % (42.2 - 75.2 %) 73.2 84.5 H Lymphocytes % (20.5 - 51.1 %) 12.7 L 4.6 L Monocytes % (1.7 - 9.3 %) 12.7 H 9.3 Eosinophils % (0 - 5 %) 1.0 1.2 Basophils % (0.0 - 2.0 %) 0.4 0.4 Absolute Granulocytes (1.4 - 6.5 /CUMM) 7.2 H 9.7 H Segmented Neutrophils (42.2 - 75.2 %) 82 H Band Neutrophils (0.0 - 5.0 %) 5 Absolute Lymphocytes (1.2 - 3.4 /CUMM) 1.3 0.5 L Lymphocytes (20.5 - 51.1 %) 6 L Monocytes (1.7 - 9.3 %) 6 Absolute Monocytes (0.10 - 0.60 /CUMM) 1.3 H 1.1 H Eosinophils (0 - 5.0 %) 1 Absolute Eosinophils (0.0 - 0.7 /CUMM) 0.1 0.1 Absolute Basophils (0.0 - 0.2 /CUMM) 0 0 Platelet Estimate (ADEQUATE) VERIFIED BY SMEAR Polychromasia 1+ Poikilocytosis 1+ Ovalocytes 1+ PUBS MCHC (33.0 - 37.0 G/DL) 34.2 33.6 Imaging/Other Studies: Renal US: Bilateral normal size kidneys with no sonographic evidence of urinary obstruction. Urinary bladder was not evaluated due to presence of Chand's catheter at the time of the examination.
--- NOTE | 2016-10-30 09:31 | Operative Report ---
Operative/Inv Procedure Report Surgery Date: 10/27/16 Name of Procedure: Left total hip arthroplasty Pre-Operative Diagnosis: Left femoral neck fracture Post-Operative Diagnosis: Same Estimated Blood Loss: 750 mL Surgeon/Dehydrator: OSMIN Kwan Anesthesia: general endotracheal tube IV Fluids: See anesthesia record Implants: Lilly Accolade 2 femoral component, 54 acetabular shell, 36 mm head standard neck length Specimens: Left femoral head Complications: None Condition: Stable Operative Indication: Patient is a 60-year-old male status post mechanical fall with a displaced left femoral neck fracture. He was indicated for total hip arthroplasty due to his young age. Risks and benefits of the procedure were discussed with the patient detail. Skilled set of hands assessing provided by Dr. Donna Kwan who aided with retraction positioning and component placement throughout the case. Operative/Procedure Note Note: Once informed consent was obtained and the correct limb was identified patient brought to room #table in supine position. After initiation of general endotracheal anesthesia the patient was in a right lateral decubitus position on the pegboard. Left lower extremity was prepped and draped in usual sterile fashion after Chand catheter was placed. To begin the procedure standard incision for posterior portal was made and sharp dissection was carried down through skin and subcutaneous tissue. The fascia was incised and carried out with curved Sarabia scissors. Degrees flexion was fibers were dissected at the bipennate junction. Charnley retractor was placed. Sciatic nerve identified and protected. The fat was swept off the short internal/external rotators and piriformis tendon was tagged for later repair. The piriformis tendon and the external rotator muscles were released from insertion of piriformis fossa. Capsulotomy was performed. Femoral neck fracture was identified and the femoral neck was cut was made 1 fingerbreadth above the lesser trochanter. Once this was done the femoral head was extracted the corkscrew. Anterior and inferior acetabular retractors were placed. Pulmonology removed from acetabulum. The acetabulum then was re-reamed starting at 47 reamer and reamed up to a 53 reamer. A 54 trial was placed and found be a good fit. A 54 acetabular shell was opened and placed into the acetabulum without competition. One screw was used for fixation purposes and the superior posterior quadrant. The liner was opened and locked into the acetabular shell without complication. Attention was then turned to the femur. Box osteotome was used to open up the lateral femur and proximal femur. Femur was then opened with the opening reamer. We then sequentially broached with the appropriate broaches for the Accolade 2 system up to a size 6 broach. This was found to be an excellent fit and was left in place. A trial reduction was done with a 36 mm head and standard neck length. The hip was reduced easily. Leg lengths were equal and the hip was stable in 90 of flexion and 30 of internal rotation. The hip was dislocated and the components removed. Femoral canal was pulse lavaged. A size 6 Accolade 2 stem was opened and placed on the femur with good press-fit technique. It was again trialed with a 36 mm head and standard neck length and again found to be stable with equal leg lengths. A 36 mm ceramic head was opened and placed onto the femoral component without complication. The hip was reduced and taken through a range of motion. The wound was pulse lavaged. The capsule and short external rotators and piriformis were repaired through drill holes into the greater trochanter. The fascia gregg was then closed with #1 Vicryl sutures. Subcutaneous tissues tissues were closed with #1 Vicryl and 2-0 Vicryl interrupted sutures. Skin was closed chacorta. Sterile dressing was applied and the patient was awakened taken recovery room in stable condition.
--- NOTE | 2016-10-30 10:07 | PN- Cardiology ---
Subjective Subjective: The patient is awake, alert Has continued pain from the hip The events of the last 24 hours as well as telemetry were reviewed. Review of Systems: The review of systems is negative for chest pains, palpitations nor lightheadedness. The remainder of the 14 point review of systems is noncontributory with the exception of above. Objective Vital Signs and I&Os Vital Signs Date Time Temp Pulse Resp B/P B/P Pulse O2 O2 Flow FiO2 Mean Ox Delivery Rate 10/30 08 98.6 80 24 160/70 94 Room Air 10/30 0025 99.5 78 20 157/70 92 10/29 2318 74 150/80 10/29 2318 74 150/80 05 2316 74 150/80 10/29 1742 73 118/60 10/29 1621 99.3 73 18 118/60 92 10/29 1256 98.8 89 20 128/58 10/29 1253 98.8 89 20 128/58 94 Room Air Room Air 10/29 1104 99.3 84 152/72 10/29 1104 99.3 84 20 152/72 10/29 1103 99.3 84 20 152/72 10/29 1103 99.3 84 20 152/72 10/29 1100 Room Air 3.0L 10/29 1055 Room Air 3.0L Intake & Output 10/30 1600 10/30 0800 10/30 0000 10/29 1600 10/29 0800 10/29 0000 Intake Total 3609 049 5857 1150 800 Output Total 350 500 300 350 150 Balance 399 629 9887 800 650 Intake, IV 5605 055 2066 900 600 Intake, Oral 100 100 480 250 200 Number 0 Bowel Movements Output, Urine 350 500 300 350 150 Patient 207 lb Weight Physical Exam: General: Nontoxic, no apparent distress. HEENT: Sclera and conjunctiva within normal limits, without xanthelasmas. Neck: Carotids 2+ without bruits. Respiratory: Clear to auscultation, air movement is good, without accessory respiratory muscle use. Heart: Regular rate and rhythm, without murmurs, without JVD. Abdomen: Soft, nontender, no masses, normoactive bowel sounds. Extremities: Without clubbing, cyanosis, without edema. Neuro: Nonfocal exam, strength, 5 out of 5 Skin: Within normal limits without lesions. Psych: Mood and affect: Normal Current Medications: Current Medications Sig/Lynda Start time Last Medication Dose Route Stop Time Status Admin Acetaminophen 650 MG .STK-MED ONE 10/30 1955 DC PO 10/29 195 Acetaminophen 1,000 MG Q6P PRN 10/28 0045 AC 10/30 IV 0700 Acetaminophen 650 MG Q6P PRN 10/28 0045 AC 10/28 PO 0129 Amlodipine Besylate 10 MG DAILY 10/28 1000 AC 10/30 PO 0836 Bisacodyl 5 MG DAILY 10/30 1000 AC 10/30 PO 0834 Bisacodyl 10 MG ONCE ONE 10/29 1630 DC 10/29 RI 10/29 1631 1741 Chlorthalidone 25 MG DAILY 10/28 1000 DC 10/29 PO 1102 Docusate Sodium 100 MG BID PRN 10/28 0045 AC 10/28 PO 0909 Ferrous Sulfate 325 MG TID 10/28 1000 AC 10/30 PO 0835 Hydralazine HCl 100 MG TID 10/28 1000 AC 10/30 PO 0833 Insulin Aspart 0 TIDAC 10/28 1200 AC 10/30 SC 0831 Isosorbide 60 MG DAILY 10/28 1000 AC 10/30 Mononitrate PO 0834 Labetalol HCl 300 MG BID 10/29 2200 DC PO Labetalol HCl 300 MG BID 10/29 1245 AC 10/30 PO 0837 Labetalol HCl 300 MG BID 10/28 1000 DC 10/28 PO 2202 Methyl Salicylate 1 RADHA Q6 10/28 1200 AC 10/30 TOP 0600 Morphine Sulfate 2 MG ONCE ONE 10/29 1200 DC 10/29 IV 10/29 1201 1209 Morphine Sulfate 4 MG Q4P PRN 10/29 1200 AC IV Morphine Sulfate 2 MG Q4P PRN 10/28 0045 DC 10/29 IV 1100 Oxycodone/ 2 TAB Q6P PRN 10/30 0945 AC Acetaminophen PO Prasugrel 10 MG DAILY 10/29 1200 AC 10/30 PO 0834 Prazosin HCl 2 MG BID 10/28 1000 AC 10/30 PO 0835 Senna/Docusate Sodium 1 TAB BID PRN 10/28 0045 AC 10/28 PO 0909 Sodium Bicarbonate 1,300 MG BID 10/29 1200 AC 10/30 PO 0836 Sodium Chloride 1,000 ML Q13H 10/28 2100 AC 10/30 IV 0200 Warfarin Sodium 5 MG COUMADIN 1700 ONE 10/29 1700 DC 10/29 PO 10/29 1701 1700 Results Last 48 Hrs of Labs/Mics: Laboratory Tests 10/30/16 0733: Anion Gap 13, Estimated GFR 25 L, BUN/Creatinine Ratio 27.3 H, Phosphorus 5.8 H, Magnesium 2.3, Creatine Kinase 359 H, PT 12.7 H, INR 1.21 H, CBC w Diff NO MAN DIFF REQ, RBC 2.75 L, MCV 88.0, MCH 29.6, RDW 13.5, MPV 8.6, Gran % 74.9, Lymphocytes % 9.1 L, Monocytes % 12.8 H, Eosinophils % 2.7, Basophils % 0.5, Absolute Granulocytes 6.8 H, Absolute Lymphocytes 0.8 L, Absolute Monocytes 1.2 H, Absolute Eosinophils 0.2, Absolute Basophils 0, PUBS MCHC 33.7 10/29/16 2303: Anion Gap 13, Estimated GFR 23 L, BUN/Creatinine Ratio 24.3 10/29/16 2302: CBC w Diff NO MAN DIFF REQ, RBC 2.60 L, MCV 86.3, MCH 29.5, RDW 13.7, MPV 7.9, Gran % 72.4, Lymphocytes % 11.6 L, Monocytes % 12.6 H, Eosinophils % 3.0, Basophils % 0.4, Absolute Granulocytes 6.6 H, Absolute Lymphocytes 1.0 L, Absolute Monocytes 1.1 H, Absolute Eosinophils 0.3, Absolute Basophils 0, PUBS MCHC 34.2 10/29/16 2143: Anion Gap 10, Estimated GFR 23 L, BUN/Creatinine Ratio 25.0 10/29/16 1814: CBC w Diff Cancelled, WBC Cancelled, RBC Cancelled, Hgb Cancelled, Hct Cancelled , MCV Cancelled, MCH Cancelled, RDW Cancelled, Plt Count Cancelled, MPV Cancelled, PUBS MCHC Cancelled 10/29/16 1600: CBC w Diff Cancelled, WBC Cancelled, RBC Cancelled, Hgb Cancelled, Hct Cancelled , MCV Cancelled, MCH Cancelled, RDW Cancelled, Plt Count Cancelled, MPV Cancelled, PUBS MCHC Cancelled 10/29/16 1053: Urinalysis LIGHT H, Urine Color YEL, Urine Clarity CLEAR, Urine pH 6.0, Ur Specific Alexander 1.020, Urine Protein 100 H, Urine Ketones NEG, Urine Nitrite NEG, Urine Bilirubin NEG, Urine Urobilinogen 0.2, Ur Leukocyte Esterase NEG, Ur Microscopic SEDIMENT EXAMINED, Urine RBC 5-10 H, Ur Epithelial Cells FEW, Urine Bacteria FEW H, Urine Hemoglobin SMALL H, Urine Glucose NEG 10/29/16 1053: Urine Osmolality 421, Ur Random Creatinine 87.4, Ur Random Sodium 35, Ur Random Potassium 30.5, Fraction Sodium Excret 0.9 10/29/16 0622: Anion Gap 13, Estimated GFR 21 L, BUN/Creatinine Ratio 20.3, Serum Osmolality 291, Uric Acid 10.9 H, Creatine Kinase 373 H, CBC w Diff NO MAN DIFF REQ, RBC 2.69 L, MCV 87.3, MCH 29.8, RDW 13.2, MPV 8.5, Gran % 72.4, Lymphocytes % 11.9 L, Monocytes % 12.4 H, Eosinophils % 2.8, Basophils % 0.5, Absolute Granulocytes 6.3, Absolute Lymphocytes 1.0 L, Absolute Monocytes 1.1 H, Absolute Eosinophils 0.2, Absolute Basophils 0, PUBS MCHC 34.1 10/28/16 1720: Troponin I 0.68 *H 10/28/16 1525: Lymphocytes 1, % Normal PMNs 93, Fluid WBC 41254 H, Fld Mesothelial Cells 6, Fld Total RBCs Counted 3850 H, Sodium Urate Crystals FEW NA UR CRYSTALS 10/28/16 1400: C-Reactive Prot, Quant > 9.0 H, ESR Westergren 71 H Assessment/Plan Assessment/Plan #1 Fracture of the left hip from mechanical fall. #2. Long history of coronary artery disease. Multiple stents in the past. Latest stress test in June 2016 was negative for ischemia but positive for a small posterobasal infarct. He has been managed with dual antiplatelet agents. #3. Hypertension somewhat resistant. He is being managed by a glass tube bender in [place]. #4. Diabetes mellitus #5. Chronic renal insufficiency #6. Dyslipidemia #7. Gout #8. Statin intolerance #9. PVD. Abnormal [place] but patient reports no symptoms from his past note. #10. Elevated troponin isoenzyme The patient is now status post ORIF of his left hip. He remains intermittently febrile. Consideration for further follow-up by ID may be warranted. Blood cultures have been negative to date. Elevated troponin isoenzymes: This is in the setting of uncontrolled hypertension, and acute hip fracture as well as acute on chronic kidney disease and the peak troponin isoenzyme 0.9, and is trending downward. At this time, we will continue to manage his blood pressures, and would suggest increasing labetalol to 400 mg by mouth twice a day further testing for an underlying new burden of ischemia will be performed through Stress testing as an outpatient. Acute on chronic kidney injury: Input by nephrology has been reviewed and appreciated Continue telemetry? No
[2016-10-30 15:30] VITALS: BP 138/72
[2016-10-31 00:10] VITALS: BP 144/62
--- NOTE | 2016-10-31 07:22 | PN- Housestaff ---
NITIN HAMPTON,[facility] 10/31/16 0722: Subjective Follow-up For: L femoral neck fx w/ varus angulation s/p ORIF R knee effusion s/p aspiration of 30cc straw colored fluid Acute on chronic renal failure Anemia Hyponatremia Hypertensive urgency Elevated troponin Pain management Complaints: Bilateral knee pain 4/10 Tele-Events Since Last Visit: NSR, no overnight events. HR 77-81bpm Subjective: This morning Mr Putnam states that he feels better. However he complains of bilateral knee region pain that is 4/10 intensity. Denies significant pain in his left hip op site. He denies any fevers, chills, new onset chest pain, shortness of breath, palpitations, nausea or abdominal pain. Review of Systems Constitutional: Reports: see HPI. Denies: chills, diaphoresis, fever. Cardiovascular: Denies: chest pain, palpitations. Respiratory: Denies: cough, short of breath. Gastrointestinal: Reports: constipation. Denies: abdominal pain, diarrhea. Objective Last 24 Hrs of Vital Signs/I&O Vital Signs Date Time Temp Pulse Resp B/P B/P Pulse O2 O2 Flow FiO2 Mean Ox Delivery Rate 10/31 0010 98.6 85 18 144/62 92 Room Air 10/31 0000 CPAP 10/30 2117 83 10/30 211 83 10/30 2118 83 10/30 1708 80 140/58 10/30 1530 98.8 80 18 138/72 91 Room Air Intake & Output 10/31 1600 10/31 0800 10/31 0000 Intake Total 650 840 Output Total 900 750 Balance -250 90 Intake, IV 600 600 Intake, Oral 50 240 Output, Urine 900 750 Physical Exam General Appearance: Alert, Oriented X3, Cooperative, No Acute Distress Skin: No Rashes HEENT: Atraumatic, PERRLA, EOMI Neck: No JVD, No thryomegaly, +2 Carotid Pulse wo Bruit Lymphatic: Cervical nl Cardiovascular: Regular Rate, Normal S1, Normal S2, No Murmurs Lungs: Clear to Auscultation, Normal Air Movement Abdomen: Normal Bowel Sounds, Soft, No Tenderness, No Hepatospenomegaly Neurological: Normal Speech, Normal Tone Extremities: No Edema, Normal Pulses Vascular: Normal Pulses Current Medications: Current Medications Sig/Lynda Start time Last Medication Dose Route Stop Time Status Admin Acetaminophen 1,000 MG Q6P PRN 10/28 0045 AC 10/30 IV 0700 Acetaminophen 650 MG Q6P PRN 10/28 0045 AC 10/28 PO 0129 Amlodipine Besylate 10 MG DAILY 10/28 1000 AC 10/30 PO 0836 Bisacodyl 5 MG DAILY 10/30 1000 AC 10/30 PO 0834 Docusate Sodium 100 MG BID PRN 10/28 0045 AC 10/28 PO 0909 Ferrous Sulfate 325 MG TID 10/28 1000 AC 10/30 PO 2118 Hydralazine HCl 100 MG TID 10/28 1000 AC 10/30 PO 2118 Insulin Aspart 0 TIDAC 10/28 1200 AC 10/30 SC 1707 Isosorbide 60 MG DAILY 10/28 1000 AC 10/30 Mononitrate PO 0834 Labetalol HCl 300 MG BID 10/29 1245 AC 10/30 PO 2118 Methyl Salicylate 1 RADHA Q6 10/28 1200 AC 10/31 TOP 0539 Morphine Sulfate 4 MG Q4P PRN 10/29 1200 AC IV Oxycodone/ 2 TAB Q6P PRN 10/30 0945 AC 10/30 Acetaminophen PO 1317 Patient Medication 1 ED .STK-MED ONE 10/30 1416 DC Teaching ED 10/30 1417 Prasugrel 10 MG DAILY 10/29 1200 AC 10/30 PO 0834 Prazosin HCl 2 MG BID 10/28 1000 AC 10/30 PO 2118 Senna/Docusate Sodium 1 TAB BID PRN 10/28 0045 AC 10/28 PO 0909 Sodium Bicarbonate 1,300 MG BID 10/29 1200 AC 10/30 PO 2118 Sodium Chloride 1,000 ML Q13H 10/28 2100 AC 10/31 IV 0016 Warfarin Sodium 5 MG COUMADIN 1700 ONE 10/30 1700 DC 10/30 PO 10/30 1701 1707 Last 24 Hrs of Lab/Wnig Results Last 24 Hrs of Labs/Mics: Laboratory Tests 10/31/16 0610: Anion Gap 11, Estimated GFR 29 L, BUN/Creatinine Ratio 29.1 H, 25-OH Vitamin D Total Pending, PT 16.5 H, INR 1.58 H, CBC w Diff NO MAN DIFF REQ, RBC 2.73 L, MCV 85.8, MCH 29.3, RDW 13.4, MPV 8.6, Gran % 72.3, Lymphocytes % 10.7 L, Monocytes % 12.5 H, Eosinophils % 4.4, Basophils % 0.1, Absolute Granulocytes 6.3, Absolute Lymphocytes 0.9 L, Absolute Monocytes 1.1 H, Absolute Eosinophils 0.4, Absolute Basophils 0, PUBS MCHC 34.1 Assessment/Plan Assessment: Mr. Putnam is a 60-year-old gentleman with a PMH of HTN, type II DM, PVD, CAD s/p stent placement X7 () previously followed by his margin analyst Dr. Abdirizak Hendrix until he and now sees Dr. Sincere Carrington. Most recently resistant hypertension with medication adjustments since May 2016, a [facility]2016 for hypertensive urgency, complicated with vitreous hemorrhage in the left eye that was attributed to heparin for DVT prophylaxis. Patient's welder oxyhydrogen Dr. Oscar Huang at [facility] has been involved with his antihypertensive medication adjustment: Increased labetalol dose, started on prazosin, increased Lasix to TID. His renal function had worsened secondary to starting azilsartan which has since been discontinued. For the vitreous hemorrhage she has been followed by his edger machine helper Dr. Luis F Hayes which was managed with Avastin injection with follow-up plans for photocoagulation. He presented to [facility] on 10/24/2016 after suffering a mechanical fall tripping over a piece of plywood landing on his left hip, denied any preceding headache, dizziness, blurred vision or associated LOC. Due to significant pain he was unable to ambulate independently for an extended period of time. He is now post op day 4 after left ORIF. Problem list: 1. Left femoral neck fracture with varus angulation s/p ORIF (10/27/2016) 2. R knee effusion s/p aspiration of 30cc straw colored fluid 3. Acute on chronic renal failure 4. Acute blood loss Anemia 5. Hyponatremia 6. Hypertensive urgency 7. Elevated troponins 8. CAD with history of stent placement 9. Elevated creatinine kinase 10. Diabetes 11. History of Vitreous hemorrhage Plan: 1. Left femoral neck fracture with varus angulation * Postop day #4 for left hip ORIF. Per surgery recommendations the site appears stable and swelling on the lateral aspect is likely secondary to an underlying hematoma. No plan to image the area at this time due to no evidence of expansion/active bleeding from the site. We'll continue to monitor * Pain management with morphine and Percocet * Weight bearing as tolerated * Continue with senna and Colace when necessary for titration of 1-2 BMs per 24 hours * Add miralax 1g daily * Will dose Coumadin 5 mg again today with target INR between 2 and 3 2. R knee effusion s/p aspiration of 30cc straw colored fluid * Stable at this time * Fluid analysis negative for uric acid crystals * 10,670 WBCs, 2850 RBCs * Culture and Gram stain negative thus far * Pain management and leg elevation for support 3. Acute on chronic renal failure * Interval improvement in acute on chronic renal insufficiency as his BUN/CR 67/ 2.3 with fluid hydration normal saline at 75 mL an hour * Appreciate nephrology recommendations * I discussed with Dr. Castro today about the possiblility of stopping IV fluids and discharging him on PO bicarbonate. He is in agreement as long as the senior living physician will monitor/repeat his renal function testing later in the week as he is close to his baseline creatinine of 2.0 * Will also do a voiding trial to see if he can be discharged without a acosta 4. Acute blood loss Anemia * Status post 1 unit PRBC transfusion on 10/29/2016 * H&H today : 8.0/23.4. Continue monitoring CBC and maintain HB above 8 * Fe 13L, TIBC 247L, 5 saturation 5L, ferritin 230.0. Continue ferrous sulfate TID 5. Hyponatremia * Interval improvement in hyponatremia: 130 up from 127. Continue with normal saline at 75 mL 6. Hypertensive urgency * Blood pressure has been well controlled on his current regimen * Continue with labetalol 300 mg BID, hydralazine 100 mg TID, amlodipine 10 mg, prazosin 2 mg BID * Chlorthalidone 25 mg has been discontinued in the setting of acute on chronic renal insufficiency 7. Elevated troponins with history of CAD s/p stenting * Stable at this time. Will maintain hematocrit above 24 with extensive history of CAD Will inquire from margin analyst if aspirin shoould be restarted 8. Elevated creatinine kinase * Slight increase in CK up to 373 with noticeable improvement on fluid hydration. Encourage ambulation as tolerated and continue with IV fluids over the next 24 hours. Creatinine improved to kinase 359 yesterday 10. Diabetes * Accu-Cheks of the past 24 hours between 167 and 260 which is improving * Continue medium dose novolog sliding scale 11. History of Vitreous hemorrhage * Stable at this time Diet: Consistent carbohydrate 3 DVT prophylaxis: On Coumadin CODE STATUS: Full code Problem List: 1. S/P ORIF (open reduction internal fixation) fracture 2. Effusion, right knee 3. Acute on chronic renal failure 4. Hyponatremia 5. Blood loss anemia 6. Diabetes 7. Elevated creatine kinase 8. Hypertensive urgency 9. Vitreous hemorrhage, left eye Pain Ratin Pain Location: Bilateral knee Pain Goal: Pain 4 or less Pain Plan: Percocert 2 tabs Morphine Tomorrow's Labs & Rationales: If still in hospital: CBC: Trending anemia of blood loss BEP: Trending acute on chronic renal failure INR: On Coumadin DVT/Prophylaxis: mechanical, pharmacological Consulting Request: Consulting Specialty: Cardiology PRITESH HAMPTONDIANA 10/31/16 1142: Attending MD Review Statement Attending Statement Attending MD Statement: examined this patient, discuss w/resident/PA/ON AWAKE COUNSELOR, agreed w/resident/PA/ON AWAKE COUNSELOR, reviewed EMR data (avail), discussed with nursing, discussed with case mgmt, reviewed images, amended to note Attending Assessment/Plan: Patient seen and examined, was somewhat sleepy this am but then he had just received morphine. Otherwise creatinine is improving and H&H is stable. Blood pressure is much better. Discussed with nephrology, from the standpoint we can stop the fluid and patient can be discharged. I would've is excited that Dr. Brady about patient's diuretics. Patient needs to go to a rehabilitation. He has a bed available and can likely discharge to rehabilitation today. We'll discontinue the Acosta. Patient to follow up with orthopedic in 10-14 days and his anticoagulation will be continued for 6 weeks postop. His INR should be checked frequently with a goal INR between 2 and 3.
[2016-10-31 08:00] VITALS: BP 140/60
[2016-10-31 08:11] LABS: ABSOLUTE BASOPHIL COUNT 0 /CUMM (0.0-0.2); ABSOLUTE EOSINOPHIL COUNT 0.4 /CUMM (0.0-0.7); ABSOLUTE GRANULOCYTE CT 6.3 /CUMM (1.4-6.5); ABSOLUTE LYMPH COUNT 0.9 /CUMM (1.2-3.4); ABSOLUTE MONOCYTE COUNT 1.1 /CUMM (0.10-0.60); BASOPHIL % 0.1 % (0.0-2.0); EOSINOPHIL % 4.4 % (0-5); GRANULOCYTE % 72.3 % (42.2-75.2); HEMATOCRIT 23.4 % (42-52); MEAN CORPUSCULAR HGB 29.3 PG (27.0-31.0); MEAN CORPUSCULAR HGB CONC 34.1 G/DL (33.0-37.0); MEAN CORPUSCULAR VOLUME 85.8 FL (80.0-94.0); MEAN PLATELET VOLUME 8.6 FL (7.4-10.4); PLATELET COUNT 232 /CUMM (130-400); RBC DISTRIBUTION WIDTH 13.4 % (11.5-14.5); RED BLOOD CELL CT 2.73 /CUMM (4.70-6.10); WHITE BLOOD CELL COUNT 8.7 /CUMM (4.8-10.8)
[2016-10-31] MEDS ORDERED: FERROUS SULFAT325 M2 PO (08:13)
[2016-10-31] MEDS ORDERED: EFFIENT PO (08:13)
[2016-10-31] MEDS ORDERED: LABETALOL HCL100 M1 PO (08:14)
[2016-10-31] MEDS ORDERED: PERCOCET 5-3251 EACH PO (08:15)
[2016-10-31] MEDS ORDERED: BISACODYL5 M1 PO (08:16)
[2016-10-31] MEDS ORDERED: DOCUSATE SODIU100 M3 PO (08:16)
[2016-10-31] MEDS ORDERED: SENNA PLUS TAB1 EACH PO (08:16)
[2016-10-31 08:18] LABS: PT 16.5 SEC (9.4-12.5)
[2016-10-31] MEDS ORDERED: PRAZOSIN HCL2 M1 PO (08:23)
[2016-10-31] MEDS ORDERED: HYDRALAZINE HCL50 M1 PO (08:24)
--- NOTE | 2016-10-31 08:27 | Patient Discharge Instructions ---
Discharge Instructions General Discharge Information You were seen/treated for: 1. Left femoral neck fracture with varus angulation s/p total L hip arthroplasty (10/27/2016) 2. R knee effusion s/p aspiration of 30cc straw colored fluid 3. Acute on chronic renal failure 4. Acute blood loss Anemia 5. Hypertensive urgency You had these procedures: Total L hip arthroplasty (10/27/2016) Watch for these problems: Worsening swelling, pain, bleeding from the left hip Fevers, chills Nausea, vomiting, chest pain, shortness of breath Special Instructions: 1. Please take all medications as directed. 2. Check your INR and adjust coumadin (warfarin) dose to keep INR within goal level of 2-3. 3. Your aspirin has been stopped because you are taking Coumadin (warfarin) for the next 6 weeks. Please restart your aspirin 81mg daily ONLY AFTER you have finished your course of coumadin (warfarin) therapy. 4. Your diuretics-lasix(furosemide) and chlorthalidone, have also been stopped due to your worsening kidney function. Follow up with your seam rubbing machine operator within 1 week of discharge to see if you can restart these diuretic medications. 5.Have your kidney function/Basic electrolyte profile test checked within 3 days after discharge and send to your physician for review. 6. Please follow-up with your PCP within one week after discharge. 7. Please follow-up with your orthopedic doctor within 10-14 days after the surgery (your surgery date was 10/27/2016). 8. Please follow-up with her glass ribbon machine operator assistant within 1-2 weeks after discharge. Diet Continue normal diet: No Recommended Diet: Heart Healthy Activity Full Activity/No Limits: No Activity Self Limited: Yes Acute Coronary Syndrome Inclusion Criteria At DC or during hospital stay patient has or had the following: ACS DIAGNOSIS No Discharge Core Measures Meds if any: Prescribed or Continued at Discharge Meds if any: NOT Prescribed or Continued at Discharge Congestive Heart Failure Inclusion Criteria At DC or during hospital stay patient has or had the following: CHF DIAGNOSIS No Discharge Core Measures Meds if any: Prescribed or Continued at Discharge Meds if any: NOT Prescribed or Continued at Discharge Cerebrovascular accident Inclusion Criteria At DC or during hospital stay patient has or had the following: CVA/TIA Diagnosis No Discharge Core Measures Meds if any: Prescribed or Continued at Discharge Meds if any: NOT Prescribed or Continued at Discharge Venous thromboembolism Inclusion Criteria VTE Diagnosis No VTE Type NONE VTE Confirmed by (Test) NONE Discharge Core Measures - Per Current guidelines, there needs to be overlap - treatment for the first 5 days of Warfarin therapy. - If discharged on Warfarin prior to 5 days of - overlap therapy, the patient will need to be - assessed for post discharge needs including - *Post discharge parental anticoagulation - *Warfarin and/or parental anticoagulation education - *Follow up date to check INR post discharge At least 5 days overlap therapy as Inpatient No Meds if any: Prescribed or Continued at Discharge Note: Overlap Therapy is Warfarin and Anticoagulant Meds if any: NOT Prescribed or Continued at Discharge
--- NOTE | 2016-10-31 08:38 | PN- Nephrology ---
Assessment/Plan Assessment: 1. MARY: nonoliguric ATN --> starting to improve 2. 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 Met acid: continue po bicarb Suggestion: 1. lower IV NS 40 ml/hr 2. recheck labs in AM Subjective Subjective: No SOB No uremic sx but appetite deminished Nonoliguric Objective Vital Signs and I&Os Vital Signs Date Time Temp Pulse Resp B/P B/P Pulse O2 O2 Flow FiO2 Mean Ox Delivery Rate 10/31 0010 98.6 85 18 144/62 92 Room Air 10/31 0000 CPAP 10/30 2117 83 10/30 2117 83 10/30 211 83 10/30 1708 80 140/58 10/30 1530 98.8 80 18 138/72 91 Room Air Intake & Output 10/31 1600 10/31 0400 10/30 1600 10/30 0400 10/29 1600 10/29 0400 Intake Total 091 273 9431 600 2630 800 Output Total 900 750 800 500 650 150 Balance -275 64 [id number] 271 9863 650 Intake, IV 269 508 3724 500 1900 600 Intake, Oral 50 240 340 100 730 200 Number 0 0 Bowel Movements Output, Urine 900 750 800 500 650 150 Patient 207 lb Weight Physical Exam General Appearance: well developed/nourished, no apparent distress Head: atraumatic Respiratory: quiet respiration, lungs clear Cardiovascular: regular rate/rhythm Abdomen: soft, non-tender, obese Extremities: no edema Neurologic/Psychiatric: awake, alert Current Medications: Current Medications Sig/Lynda Start time Last Medication Dose Route Stop Time Status Admin Acetaminophen 1,000 MG Q6P PRN 10/28 0045 AC 10/30 IV 0700 Acetaminophen 650 MG Q6P PRN 10/28 0045 AC 10/28 PO 0129 Amlodipine Besylate 10 MG DAILY 10/28 1000 AC 10/30 PO 0836 Bisacodyl 5 MG DAILY 10/30 1000 AC 10/30 PO 0834 Docusate Sodium 100 MG BID PRN 10/28 0045 AC 10/28 PO 0909 Ferrous Sulfate 325 MG TID 10/28 1000 AC 10/30 PO 2117 Hydralazine HCl 100 MG TID 10/28 1000 AC 10/30 PO 211 Insulin Aspart 0 TIDAC 10/28 1200 AC 10/30 SC 1707 Isosorbide 60 MG DAILY 10/28 1000 AC 10/30 Mononitrate PO 0834 Labetalol HCl 300 MG BID 10/29 1245 AC 10/30 PO 2118 Methyl Salicylate 1 RADHA Q6 10/28 1200 AC 10/31 TOP 0539 Morphine Sulfate 4 MG Q4P PRN 10/29 1200 AC IV Oxycodone/ 2 TAB Q6P PRN 10/30 0945 AC 10/30 Acetaminophen PO 1317 Patient Medication 1 ED .STK-MED ONE 10/30 1416 DC Teaching ED 10/30 1417 Polyethylene Glycol 17 GM DAILY 10/31 1000 UNVr PO Prasugrel 10 MG DAILY 10/29 1200 AC 10/30 PO 0834 Prazosin HCl 2 MG BID 10/28 1000 AC 10/30 PO 2118 Senna/Docusate Sodium 1 TAB BID PRN 10/28 0045 AC 10/28 PO 0909 Sodium Bicarbonate 1,300 MG BID 10/29 1200 AC 10/30 PO 2118 Sodium Chloride 1,000 ML Q13H 10/28 2100 AC 10/31 IV 0016 Warfarin Sodium 5 MG COUMADIN 1700 ONE 10/30 1700 DC 10/30 PO 10/30 1701 1707 Results Pertinent Lab Results: Laboratory Tests 10/31 10/30 0610 0733 Chemistry Sodium (137 - 145 mmol/L) 133 L 130 L Potassium (3.5 - 5.1 mmol/L) 4.3 4.5 Chloride (98 - 107 mmol/L) 105 103 Carbon Dioxide (22 - 30 mmol/L) 16 L 15 L Anion Gap (5 - 16) 11 13 BUN (9 - 20 mg/dL) 67 H 71 H Creatinine (0.7 - 1.2 mg/dL) 2.3 H 2.6 H Estimated GFR (>60 ml/min) 29 L 25 L BUN/Creatinine Ratio (7 - 25 %) 29.1 H 27.3 H Phosphorus (2.5 - 4.5 mg/dL) 5.8 H Magnesium (1.6 - 2.3 mg/dL) 2.3 Creatine Kinase (55 - 170 U/L) 359 H 25-OH Vitamin D Total (30 - 100 ng/ml) Pending Coagulation PT (9.4 - 12.5 SEC) 16.5 H 12.7 H INR (0.90 - 1.17) 1.58 H 1.21 H Hematology CBC w Diff NO MAN DIFF REQ NO MAN DIFF REQ WBC (4.8 - 10.8 /CUMM) 8.7 9.1 RBC (4.70 - 6.10 /CUMM) 2.73 L 2.75 L Hgb (14.0 - 18.0 G/DL) 8.0 L 8.1 L Hct (42 - 52 %) 23.4 L 24.2 L MCV (80.0 - 94.0 FL) 85.8 88.0 MCH (27.0 - 31.0 PG) 29.3 29.6 RDW (11.5 - 14.5 %) 13.4 13.5 Plt Count (130 - 400 /CUMM) 232 202 MPV (7.4 - 10.4 FL) 8.6 8.6 Gran % (42.2 - 75.2 %) 72.3 74.9 Lymphocytes % (20.5 - 51.1 %) 10.7 L 9.1 L Monocytes % (1.7 - 9.3 %) 12.5 H 12.8 H Eosinophils % (0 - 5 %) 4.4 2.7 Basophils % (0.0 - 2.0 %) 0.1 0.5 Absolute Granulocytes (1.4 - 6.5 /CUMM) 6.3 6.8 H Absolute Lymphocytes (1.2 - 3.4 /CUMM) 0.9 L 0.8 L Absolute Monocytes (0.10 - 0.60 /CUMM) 1.1 H 1.2 H Absolute Eosinophils (0.0 - 0.7 /CUMM) 0.4 0.2 Absolute Basophils (0.0 - 0.2 /CUMM) 0 0 PUBS MCHC (33.0 - 37.0 G/DL) 34.1 33.7 10/29 10/29 10/29 2303 2302 2143 Chemistry Sodium (137 - 145 mmol/L) 128 L 127 L Potassium (3.5 - 5.1 mmol/L) 4.3 4.3 Chloride (98 - 107 mmol/L) 101 101 Carbon Dioxide (22 - 30 mmol/L) 15 L 16 L Anion Gap (5 - 16) 13 10 BUN (9 - 20 mg/dL) 68 H 70 H Creatinine (0.7 - 1.2 mg/dL) 2.8 H 2.8 H Estimated GFR (>60 ml/min) 23 L 23 L BUN/Creatinine Ratio (7 - 25 %) 24.3 25.0 Hematology CBC w Diff NO MAN DIFF REQ WBC (4.8 - 10.8 /CUMM) 9.1 RBC (4.70 - 6.10 /CUMM) 2.60 L Hgb (14.0 - 18.0 G/DL) 7.7 L Hct (42 - 52 %) 22.5 L MCV (80.0 - 94.0 FL) 86.3 MCH (27.0 - 31.0 PG) 29.5 RDW (11.5 - 14.5 %) 13.7 Plt Count (130 - 400 /CUMM) 186 MPV (7.4 - 10.4 FL) 7.9 Gran % (42.2 - 75.2 %) 72.4 Lymphocytes % (20.5 - 51.1 %) 11.6 L Monocytes % (1.7 - 9.3 %) 12.6 H Eosinophils % (0 - 5 %) 3.0 Basophils % (0.0 - 2.0 %) 0.4 Absolute Granulocytes (1.4 - 6.5 /CUMM) 6.6 H Absolute Lymphocytes (1.2 - 3.4 /CUMM) 1.0 L Absolute Monocytes (0.10 - 0.60 /CUMM) 1.1 H Absolute Eosinophils (0.0 - 0.7 /CUMM) 0.3 Absolute Basophils (0.0 - 0.2 /CUMM) 0 PUBS MCHC (33.0 - 37.0 G/DL) 34.2 10/29 10/29 1814 1600 Hematology CBC w Diff Cancelled Cancelled WBC Cancelled Cancelled RBC Cancelled Cancelled Hgb Cancelled Cancelled Hct Cancelled Cancelled MCV Cancelled Cancelled MCH Cancelled Cancelled RDW Cancelled Cancelled Plt Count Cancelled Cancelled MPV Cancelled Cancelled PUBS MCHC Cancelled Cancelled 10/29 10/29 1053 1053 Urines Urinalysis LIGHT H Urine Color (YEL,AMB,STR) YEL Urine Clarity (CLEAR) CLEAR Urine pH (5.0 - 8.0) 6.0 Ur Specific Leonard (1.001 - 1.035) 1.020 Urine Protein (NEG,<30 MG/DL) 100 H Urine Ketones (NEG) NEG Urine Nitrite (NEG) NEG Urine Bilirubin (NEG) NEG Urine Urobilinogen (0.1 - 1.0 EU/dl) 0.2 Ur Leukocyte Esterase (NEG) NEG Ur Microscopic SEDIMENT EXAMINED Urine RBC (0 - 5 /HPF) 5-10 H Ur Epithelial Cells (NONE,FEW) FEW Urine Bacteria (NEG/NONE) FEW H Urine Hemoglobin (NEG) SMALL H Urine Osmolality (300 - 1000 MOSM/KG) 421 Ur Random Creatinine (mg/dL) 87.4 Ur Random Sodium (30 - 90 mmol/L) 35 Ur Random Potassium (mmol/L) 30.5 Fraction Sodium Excret (<1% %) 0.9 Urine Glucose (N MG/DL) NEG 10/29 10/28 0622 1720 Chemistry Sodium (137 - 145 mmol/L) 130 L Potassium (3.5 - 5.1 mmol/L) 4.2 Chloride (98 - 107 mmol/L) 101 Carbon Dioxide (22 - 30 mmol/L) 16 L Anion Gap (5 - 16) 13 BUN (9 - 20 mg/dL) 61 H Creatinine (0.7 - 1.2 mg/dL) 3.0 H Estimated GFR (>60 ml/min) 21 L BUN/Creatinine Ratio (7 - 25 %) 20.3 Serum Osmolality (285 - 295 MOSM/KG) 291 Uric Acid (3.5 - 8.5 mg/dL) 10.9 H Creatine Kinase (55 - 170 U/L) 373 H Troponin I (<0.11 ng/ml) 0.68 *H Hematology CBC w Diff NO MAN DIFF REQ WBC (4.8 - 10.8 /CUMM) 8.7 RBC (4.70 - 6.10 /CUMM) 2.69 L Hgb (14.0 - 18.0 G/DL) 8.0 L Hct (42 - 52 %) 23.5 L MCV (80.0 - 94.0 FL) 87.3 MCH (27.0 - 31.0 PG) 29.8 RDW (11.5 - 14.5 %) 13.2 Plt Count (130 - 400 /CUMM) 170 MPV (7.4 - 10.4 FL) 8.5 Gran % (42.2 - 75.2 %) 72.4 Lymphocytes % (20.5 - 51.1 %) 11.9 L Monocytes % (1.7 - 9.3 %) 12.4 H Eosinophils % (0 - 5 %) 2.8 Basophils % (0.0 - 2.0 %) 0.5 Absolute Granulocytes (1.4 - 6.5 /CUMM) 6.3 Absolute Lymphocytes (1.2 - 3.4 /CUMM) 1.0 L Absolute Monocytes (0.10 - 0.60 /CUMM) 1.1 H Absolute Eosinophils (0.0 - 0.7 /CUMM) 0.2 Absolute Basophils (0.0 - 0.2 /CUMM) 0 PUBS MCHC (33.0 - 37.0 G/DL) 34.1 10/28 10/28 1525 1400 Chemistry C-Reactive Prot, Quant (<1.0 mg/dL) > 9.0 H Hematology Lymphocytes (%) 1 % Normal PMNs (%) 93 ESR Westergren (0 - 10 MM) 71 H Other Body Source Fluid WBC (0 - 5 /CUMM) 59374 H Fld Mesothelial Cells (%) 6 Fld Total RBCs Counted (0 /CUMM) 3850 H Urines Sodium Urate Crystals (NONE) FEW NA UR CRYSTALS
--- NOTE | 2016-10-31 10:51 | PN- Cardiology ---
Subjective Subjective: The patient is awake, alert The events of the last 24 hours as well as telemetry were reviewed. Review of Systems: The review of systems is negative for chest pains, palpitations nor lightheadedness. The remainder of the 14 point review of systems is noncontributory with the exception of above. Objective Vital Signs and I&Os Vital Signs Date Time Temp Pulse Resp B/P B/P Pulse O2 O2 Flow FiO2 Mean Ox Delivery Rate 10/31 0845 140/80 10/31 0800 98.2 68 20 140/60 93 Room Air 10/31 0010 98.6 85 18 144/62 92 Room Air 10/31 0000 CPAP 10/30 211 83 10/30 2118 83 10/30 2118 83 10/30 1708 80 140/58 10/30 1530 98.8 80 18 138/72 91 Room Air Intake & Output 10/31 1600 10/31 0800 10/31 0000 10/30 1600 10/30 0800 10/30 0000 Intake Total 734 595 1264 1100 600 Output Total 900 750 450 350 500 Balance -250 90 790 750 100 Intake, IV 377 057 2310 1000 500 Intake, Oral 50 240 240 100 100 Number 0 Bowel Movements Output, Urine 900 750 450 350 500 Physical Exam: General: Nontoxic, no apparent distress. HEENT: Sclera and conjunctiva within normal limits, without xanthelasmas. Neck: Carotids 2+ without bruits. Respiratory: Clear to auscultation, air movement is good, without accessory respiratory muscle use. Heart: Regular rate and rhythm, without murmurs, without JVD. Abdomen: Soft, nontender, no masses, normoactive bowel sounds. Extremities: Without clubbing, cyanosis, without edema. Neuro: Nonfocal exam, strength, 5 out of 5 Skin: Within normal limits without lesions. Psych: Mood and affect: Normal Current Medications: Current Medications Sig/Lynda Start time Last Medication Dose Route Stop Time Status Admin Acetaminophen 1,000 MG Q6P PRN 10/28 0045 AC 10/30 IV 0700 Acetaminophen 650 MG Q6P PRN 10/28 0045 AC 10/28 PO 0129 Amlodipine Besylate 10 MG DAILY 10/28 1000 AC 10/31 PO 0846 Bisacodyl 5 MG DAILY 10/30 1000 AC 10/31 PO 0847 Docusate Sodium 100 MG BID PRN 10/28 0045 AC 10/28 PO 0909 Ferrous Sulfate 325 MG TID 10/28 1000 AC 10/31 PO 0846 Hydralazine HCl 100 MG TID 10/28 1000 AC 10/31 PO 0845 Insulin Aspart 0 TIDAC 10/28 1200 AC 10/31 SC 0856 Isosorbide 60 MG DAILY 10/28 1000 AC 10/31 Mononitrate PO 0847 Labetalol HCl 300 MG BID 10/29 1245 AC 10/31 PO 0846 Methyl Salicylate 1 RADHA Q6 10/28 1200 AC 10/31 TOP 0539 Morphine Sulfate 4 MG Q4P PRN 10/29 1200 AC 10/31 IV 0840 Oxycodone/ 2 TAB Q6P PRN 10/30 0945 AC 10/30 Acetaminophen PO 1317 Patient Medication 1 ED .STK-MED ONE 10/30 1416 UT Teaching ED 10/30 1417 Polyethylene Glycol 17 GM DAILY 10/31 1000 AC PO Prasugrel 10 MG DAILY 10/29 1200 AC 10/31 PO 0846 Prazosin HCl 2 MG BID 10/28 1000 AC 10/31 PO 0846 Senna/Docusate Sodium 1 TAB BID PRN 10/28 0045 AC 10/28 PO 0909 Sodium Bicarbonate 1,300 MG BID 10/29 1200 AC 10/31 PO 0846 Sodium Chloride 1,000 ML Q13H 10/28 2100 AC 10/31 IV 0016 Warfarin Sodium 5 MG COUMADIN 1700 ONE 10/31 1700 AC PO 10/31 1701 Warfarin Sodium 5 MG COUMADIN 1700 ONE 10/30 1700 DC 10/30 PO 10/30 1701 1707 Results Last 48 Hrs of Labs/Mics: Laboratory Tests 10/31/16 0610: Anion Gap 11, Estimated GFR 29 L, BUN/Creatinine Ratio 29.1 H, 25-OH Vitamin D Total 19.1 L, PT 16.5 H, INR 1.58 H, CBC w Diff NO MAN DIFF REQ, RBC 2.73 L, MCV 85.8, MCH 29.3, RDW 13.4, MPV 8.6, Gran % 72.3, Lymphocytes % 10.7 L, Monocytes % 12.5 H, Eosinophils % 4.4, Basophils % 0.1, Absolute Granulocytes 6.3, Absolute Lymphocytes 0.9 L, Absolute Monocytes 1.1 H, Absolute Eosinophils 0.4, Absolute Basophils 0, PUBS MCHC 34.1 10/30/16 0733: Anion Gap 13, Estimated GFR 25 L, BUN/Creatinine Ratio 27.3 H, Phosphorus 5.8 H, Magnesium 2.3, Creatine Kinase 359 H, PT 12.7 H, INR 1.21 H, CBC w Diff NO MAN DIFF REQ, RBC 2.75 L, MCV 88.0, MCH 29.6, RDW 13.5, MPV 8.6, Gran % 74.9, Lymphocytes % 9.1 L, Monocytes % 12.8 H, Eosinophils % 2.7, Basophils % 0.5, Absolute Granulocytes 6.8 H, Absolute Lymphocytes 0.8 L, Absolute Monocytes 1.2 H, Absolute Eosinophils 0.2, Absolute Basophils 0, [facility] 33.7 10/29/16 2303: Anion Gap 13, Estimated GFR 23 L, BUN/Creatinine Ratio 24.3 10/29/16 2302: CBC w Diff NO MAN DIFF REQ, RBC 2.60 L, MCV 86.3, MCH 29.5, RDW 13.7, MPV 7.9, Gran % 72.4, Lymphocytes % 11.6 L, Monocytes % 12.6 H, Eosinophils % 3.0, Basophils % 0.4, Absolute Granulocytes 6.6 H, Absolute Lymphocytes 1.0 L, Absolute Monocytes 1.1 H, Absolute Eosinophils 0.3, Absolute Basophils 0, [facility] 34.2 10/29/16 2143: Anion Gap 10, Estimated GFR 23 L, BUN/Creatinine Ratio 25.0 10/29/16 1814: CBC w Diff Cancelled, WBC Cancelled, RBC Cancelled, Hgb Cancelled, Hct Cancelled , MCV Cancelled, MCH Cancelled, RDW Cancelled, Plt Count Cancelled, MPV Cancelled, [facility] 10/29/16 1600: CBC w Diff Cancelled, WBC Cancelled, RBC Cancelled, Hgb Cancelled, Hct Cancelled , MCV Cancelled, MCH Cancelled, RDW Cancelled, Plt Count Cancelled, MPV Cancelled, [facility] 10/29/16 1053: Urinalysis LIGHT H, Urine Color YEL, Urine Clarity CLEAR, Urine pH 6.0, Ur Specific [place] 1.020, Urine Protein 100 H, Urine Ketones NEG, Urine Nitrite NEG, Urine Bilirubin NEG, Urine Urobilinogen 0.2, Ur Leukocyte Esterase NEG, Ur Microscopic SEDIMENT EXAMINED, Urine RBC 5-10 H, Ur Epithelial Cells FEW, Urine Bacteria FEW H, Urine Hemoglobin SMALL H, Urine Glucose NEG 10/29/16 1053: Urine Osmolality 421, Ur Random Creatinine 87.4, Ur Random Sodium 35, Ur Random Potassium 30.5, Fraction Sodium Excret 0.9 Assessment/Plan Assessment/Plan #1 Fracture of the left hip from mechanical fall. #2. Long history of coronary artery disease. Multiple stents in the past. Latest stress test in June 2016 was negative for ischemia but positive for a small posterobasal infarct. He has been managed with dual antiplatelet agents. #3. Hypertension somewhat resistant. 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 #4. Diabetes mellitus #5. Chronic renal insufficiency #6. Dyslipidemia #7. Gout #8. Statin intolerance #9. PVD. Abnormal [place] but patient reports no symptoms from his past note. #10. Elevated troponin isoenzyme The patient is now status post ORIF of his left hip. He remains intermittently febrile. Consideration for further follow-up by ID may be warranted. Blood cultures have been negative to date. Elevated troponin isoenzymes: This is in the setting of uncontrolled hypertension, and acute hip fracture as well as acute on chronic kidney disease and a peak troponin isoenzyme 0.9. At this time, we will continue to manage his blood pressures, and would suggest increasing labetalol to 400 mg by mouth twice a day further testing for an underlying new burden of ischemia will be performed through Stress testing as an outpatient. Acute on chronic kidney injury: Input by nephrology has been reviewed and appreciated Continue telemetry? No
[2016-10-31] MEDS ORDERED: LO-DOSE ASPIRIN81 MG PO (11:38)
[2016-10-31] MEDS ORDERED: COUMADIN5 M2 PO (11:48)
[2016-10-31] MEDS ORDERED: SODIUM BICARBO325 M1 PO (11:59)
[2016-10-31] MEDS ORDERED: VITAMIN D250000 UNIT PO (12:00)
[2016-10-31] MEDS ORDERED: NOVOLOG100 UNIT/2 SC (14:24)
[2016-10-31 15:00] VITALS: BP 140/80
== END 2016-10-31 17:25 | DRG 470 ==
LOC: ERH 18:06 → ERHI 19:42 → 1NO 19:42 → ENRESERV 20:50 → 2NB 21:45 → 1NO 10-25 08:56
PROVIDERS: Hospitalist; Internal Medicine; Ophthalmology; Physician Assistant Medical; Student in an Organized Health Care Education/Training Program; ADMIT Internal Medicine
PROC: 0SRB04A Replacement of Left Hip Joint with Ceramic on Polyethylene Synthetic Substitute, Uncemented, Open Approach (ICD-10-PCS; principal; 2016-10-27)
PROC: 30233N1 Transfusion of Nonautologous Red Blood Cells into Peripheral Vein, Percutaneous Approach (ICD-10-PCS; 2016-10-28)
PROC: 0S9C3ZZ Drainage of Right Knee Joint, Percutaneous Approach (ICD-10-PCS; 2016-10-28)
DX: S72.002A Fracture of unspecified part of neck of left femur, initial encounter for closed fracture (principal); N17.9 Acute kidney failure, unspecified; E11.21 Type 2 diabetes mellitus with diabetic nephropathy; I13.10 Hypertensive heart and chronic kidney disease without heart failure, with stage 1 through stage 4 chronic kidney disease, or unspecified chronic kidney disease; N18.3 Chronic kidney disease, stage 3 (moderate); E87.1 Hypo-osmolality and hyponatremia; D62 Acute posthemorrhagic anemia; W18.30XA Fall on same level, unspecified, initial encounter; Y92.009 Unspecified place in unspecified non-institutional (private) residence as the place of occurrence of the external cause; I25.10 Atherosclerotic heart disease of native coronary artery without angina pectoris; Z95.5 Presence of coronary angioplasty implant and graft; Z79.84 Long term (current) use of oral hypoglycemic drugs; G47.33 Obstructive sleep apnea (adult) (pediatric); I73.9 Peripheral vascular disease, unspecified; Z87.891 Personal history of nicotine dependence; H43.12 Vitreous hemorrhage, left eye; M25.461 Effusion, right knee; I16.0 Hypertensive urgency
CPT/HCPCS: 1NP; 2NBSP; 84133; 84300; 87075; 36415; 72170; 73502-LT; 76775; 81001; 82436; 82570; 86920; 87040; 87086; 87804; 87804-59; 88305; 89060; 93005; 93010; 93970; 96374; 96375; 97110-GO; 97161-GP; 97530-GO; C9399; J0131; J0690; J1644; J1815; J2270; J2405; J7042; P9016